=== PATIENT | female | born 1950 | race Caucasian/White ===

== ENCOUNTER 2017-03-23 03:45 | Emergency (ER) | payer BC ==
[2017-03-23 04:05] VITALS: BMI 32.2
--- NOTE | 2017-03-23 04:23 | PDOC ---
History of Present Illness - History of Present Illness Initial Comments: 03/23/17 04:24 The patient is a 66 year old female with significant history of hypertension, hyperlipidemia, IDDM (Type I), s/p thyroid surgery, recurrent palpitation for which she is on Diltiazem ER, brought in by EMS for palpitations that woke her from sleep early this morning. She states she had been otherwise recently been feeling in her usual state of health. Her palpitations were constant for approximately 20 minutes before resolving on their own. The patient denies any fever or chills, but does endorse feeling shaky. She does deny recent illness, cough. She denies vomiting or diarrhea. She denies any peripheral edema. Cardiology: Dr. Saunders Endocrinology: Dr. Roque PMD: At [facility] <Brittany Chavez - Last Filed: 03/23/17 04:24> - General History Source: Patient, EMS Exam Limitations: No Limitations <Tom Ridley - Last Filed: 03/23/17 06:18> - General Chief Complaint: Palpitations Stated Complaint: PALPITATIONS Time Seen by Provider: 03/23/17 04:01 Past History <Brittany Chavez - Last Filed: 03/23/17 04:24> - Past Medical History Anemia: No Asthma: Yes (DX CHILD-STABLE) Cancer: No Cardiac Disorders: Yes (PALPITATIONS, MITRAL REGURGITATION) CVA: No COPD: No CHF: No Dementia: No Diabetes: Yes (DX 1979-USES INSULIN PUMP) GI Disorders: Yes (COLON POLYP, DIVERTICULOSIS, ANAL FISSURE) Disorders: No HTN: Yes (DX IN HER 40'S) Hypercholesterolemia: Yes (DX IN HER 40'S) Liver Disease: Yes (NAFLD) Suicide Attempt (Hx): No Seizures: No Thyroid Disease: No - Surgical History Abdominal Surgery: No Appendectomy: No Cardiac Surgery: No Cholecystectomy: No Lung Surgery: No Neurologic Surgery: No Orthopedic Surgery: Yes (RIGHT ELBOW SURGERY-09/2014) - Psycho/Social/Smoking Cessation Hx Suicidal Ideation: No Smoking History: Never smoked Have you smoked in the past 12 months: No Number of Cigarettes Smoked Daily: 0 If you are a former smoker, when did you quit?: 1992 Information on smoking cessation initiated: No Hx Alcohol Use: No Drug/Substance Use Hx: No Substance Use Type: Alcohol Hx Substance Use Treatment: No <Tom Ridley - Last Filed: 03/23/17 06:18> - Past Medical History Allergies/Adverse Reactions: Allergies Allergy/AdvReac Type Severity Reaction Status Date / Time ibuprofen Allergy Severe Rash Verified 03/23/17 04:02 aspirin Allergy Intermediate Rash Verified 03/23/17 04:02 shellfish derived Allergy Intermediate Swelling Verified 03/23/17 04:02 Home Medications: Ambulatory Orders Albuterol Sulfate Inhaler - [Ventolin HFA Inhaler -] 1 - 2 inh IH DAILY PRN 11/07 Alprazolam [Xanax] 0.5 mg PO HS PRN 09/28/12 Diltiazem HCl [Cartia Xt] 240 mg PO DAILY 09/28/12 Fenofibrate [Fenoglide] 120 mg PO DAILY 09/28/12 Insulin Regular, Human [Humulin R] 8 unit IJ UTDICT 09/28/12 Valsartan/Hydrochlorothiazide [Diovan Hct 160-12.5 mg Tablet -] 1 combo PO BID 09/28/12 Cephalexin [Keflex] 500 mg PO BID #14 capsule 03/23/17 Hydralazine HCl [Apresoline -] 25 mg PO BID PRN 03/23/17 Review of Systems - Review of Systems Able to Perform ROS?: Yes Comments:: 03/23/17 04:28 GENERAL/CONSTITUTIONAL: No fever or chills. No weakness. HEAD, EYES, EARS, NOSE AND THROAT: No change in vision. No ear pain or discharge. No sore throat. CARDIOVASCULAR: +Palpitations (resolved). No chest pain or shortness of breath. No peripheral edema. RESPIRATORY: No cough, wheezing, or hemoptysis. GASTROINTESTINAL: No nausea, vomiting, diarrhea or constipation. GENITOURINARY: No dysuria, frequency, or change in urination. MUSCULOSKELETAL: No joint or muscle swelling or pain. No neck or back pain. SKIN: No rash NEUROLOGIC: No headache, vertigo, loss of consciousness, or change in strength/ sensation. ENDOCRINE: No increased thirst. No abnormal weight change. HEMATOLOGIC/LYMPHATIC: No anemia, easy bleeding, or history of blood clots. ALLERGIC/IMMUNOLOGIC: No hives or skin allergy. <Brittany Chavez - Last Filed: 03/23/17 04:24> *Physical Exam - Vital Signs Last Vital Signs Temp Pulse Resp BP Pulse Ox 100 H 14 185/78 100 03/23/17 04:02 03/23/17 04:02 03/23/17 04:02 03/23/17 04:02 - Physical Exam Comments: 03/23/17 04:29 GENERAL: Awake, alert, and fully oriented, in no acute distress HEAD: No signs of trauma EYES: PERRLA, EOMI, sclera anicteric, conjunctiva clear ENT: Auricles normal inspection, hearing grossly normal, nares patent, oropharynx clear without exudates. Moist mucosa NECK: Normal ROM, supple, no lymphadenopathy, JVD, or masses LUNGS: Breath sounds equal, clear to auscultation bilaterally. No wheezes, and no crackles HEART: Regular rate and rhythm, normal S1 and S2, no murmurs, rubs or gallops ABDOMEN: Soft, nontender, normoactive bowel sounds. No guarding, no rebound. No masses EXTREMITIES: Normal range of motion, no edema. No clubbing or cyanosis. No cords, erythema, or tenderness NEUROLOGICAL: Cranial nerves II through XII grossly intact. Normal speech, normal gait SKIN: Warm, Dry, normal turgor, no rashes or lesions noted. <Brittany Chavez - Last Filed: 03/23/17 04:24> - Vital Signs Last Vital Signs Temp Pulse Resp BP Pulse Ox 100 H 14 185/78 100 03/23/17 04:02 03/23/17 04:02 03/23/17 04:02 03/23/17 04:02 <Tom Ridley - Last Filed: 03/23/17 06:18> Heart Score/ECG Review #1 ECG reviewed & interpreted by me at: 04:35 03/23/17 05:05 NSR 88, TWI III, no std/norma, normal axis, normal intervals, QTC 421 msec <Tom Ridley - Last Filed: 03/23/17 06:18> ED Treatment Course - LABORATORY CBC & Chemistry Diagram: 03/23/17 04:39 03/23/17 04:39 <Tom Ridley - Last Filed: 03/23/17 06:18> Medical Decision Making - Medical Decision Making 03/23/17 04:14 A portion of this note was documented by scribe services under my direction. I have reviewed the details of the note, within reason, and agree with the documentation with the following case summary and management plan written by me. Patient treated in the ED. Patient arrives by ambulance to the emergency department. Nursing notes are reviewed and incorporated into the medical decision-making. Vital signs reviewed. Peripheral IV access obtained by the nurse, laboratory studies are drawn and sent, reviewed and interpreted by myself. Vital Signs Temp Pulse Resp BP Pulse Ox 100 H 14 185/78 100 03/23/17 04:02 03/23/17 04:02 03/23/17 04:02 03/23/17 04:02 66 year old female c/ hx of HTN, Type I DM on insulin pump, HLD, asthma, recent thyroid surgery, "Palpitations" on diltiazem extended release p/w palpitations today. Pt reports that she was in her usual state of health when she was sleeping and woke up with sudden palpitations. Reported that she felt 20 minutes of symptoms before it resolved spontaneously. She felt that she was shaky but denied cp/sob. Denies recent illnesses, fevers, chills, cough, vomiting, diarrhea. Will obtain an ECG. Labs, hospital monitor, UA, TSH, reassess. Will observe on hospital monitor. If workup demonstrates no acute findings, will likely d/c patient back to her surveillance camera technician for holter monitor. Pt's surveillance camera technician is Dr. Saunders. 03/23/17 06:11 CBC, BMP 03/23/17 04:39 03/23/17 04:39 CMP Sodium 135 mmol/L (136-145) L 03/23/17 04:39 Potassium 4.0 mmol/L (3.5-5.1) 03/23/17 04:39 Chloride 101 mmol/L (98-107) 03/23/17 04:39 Carbon Dioxide 28 mmol/L (21-32) 03/23/17 04:39 Anion Gap 6 (8-16) L 03/23/17 04:39 BUN 37 mg/dL (7-18) H 03/23/17 04:39 Creatinine 1.3 mg/dL (0.55-1.02) H 03/23/17 04:39 Creat Clearance w eGFR 40.86 (>60) 03/23/17 04:39 Random Glucose 308 mg/dL (74-106) H* D 03/23/17 04:39 Calcium 9.6 mg/dL (8.5-10.1) 03/23/17 04:39 Magnesium 2.0 mg/dL (1.8-2.4) 03/23/17 04:39 Total Bilirubin 0.2 mg/dL (0.2-1.0) D 03/23/17 04:39 AST 22 U/L (15-37) 03/23/17 04:39 ALT 49 U/L (12-78) D 03/23/17 04:39 Alkaline Phosphatase 62 U/L (45-117) 03/23/17 04:39 Creatine Kinase 304 IU/L (26-192) H 03/23/17 04:39 Creatine Kinase Index 1.3 % (0.0-5.0) 03/23/17 04:39 CK-MB (CK-2) 4.199 ng/mL (0.5-3.6) H 03/23/17 04:39 Troponin I 0.04 ng/ml (0.00-0.05) 03/23/17 04:39 Total Protein 7.4 g/dl (6.4-8.2) 03/23/17 04:39 Albumin 3.9 g/dl (3.4-5.0) 03/23/17 04:39 TSH 7.09 uIU/ml (0.358-3.74) H 03/23/17 04:39 Urine Test Results Urine Color Straw 03/23/17 05:11 Urine Appearance Slcloudy 03/23/17 05:11 Urine pH 6.0 (5.0-8.0) 03/23/17 05:11 Urine Protein 2+ (NEGATIVE) H 03/23/17 05:11 Urine Glucose (UA) 3+ (NEGATIVE) H 03/23/17 05:11 Urine Ketones Negative (NEGATIVE) 03/23/17 05:11 Urine Blood 1+ (NEGATIVE) H 03/23/17 05:11 Urine Nitrite Negative (NEGATIVE) 03/23/17 05:11 Urine Bilirubin Negative (NEGATIVE) 03/23/17 05:11 Ur Leukocyte Esterase 1+ (NEGATIVE) H 03/23/17 05:11 Urine RBC 1 /hpf (0-3) 03/23/17 05:11 Urine WBC 26 /hpf (3-5) 03/23/17 05:11 Ur Epithelial Cells Rare /hpf (FEW) 03/23/17 05:11 Urine Bacteria Rare /hpf (NONE SEEN) 03/23/17 05:11 TSH is 7.09 Glucose is 308. (pt will readjust her insulin). I suspect that her glucose is elevated secondary to her UTI. Will prescribe keflex. I advised the patient that she should be considered to be initiated on synthroid. Pt has a copy of the blood work. She states that she will follow up with DR. Roque regarding the findings. Pt will follow up with her doctors. She feels reassured and better. Return precautions given. I discussed the physical exam findings, ancillary test results and final diagnoses with the patient. I answered all of the patient's questions. The patient was satisfied with the care received and felt comfortable with the discharge plan and treatment plan. The patient will call their primary care physician within 24 hours to arrange follow-up and will return to the Emergency Department with any new, persistant or worsening symptoms. <Tom Ridley - Last Filed: 03/23/17 06:18> *DC/Admit/Observation/Transfer - Attestations Scribe Attestion: 03/23/17 04:30 Documentation prepared by Brittany Chavez, acting as medical claims examiner for Tom Ridley MD. <Brittany Chavez - Last Filed: 03/23/17 04:24> - Discharge Dispostion Admit: No <Tom Ridley - Last Filed: 03/23/17 06:18> Diagnosis at time of Disposition: Hyperglycemia, Low TSH level UTI (urinary tract infection) Qualifiers: Urinary tract infection type: site unspecified Hematuria presence: without hematuria Qualified Code(s): N39.0 - Urinary tract infection, site not specified - Discharge Dispostion Disposition: HOME Condition at time of disposition: Good - Prescriptions Prescriptions: Cephalexin [Keflex] 500 mg PO BID #14 capsule - Referrals Referrals: Surendra Roque MD [Staff Physician] - - Patient Instructions Printed Discharge Instructions: DI for Urinary Tract Infection (UTI), Thyroid Stimulating Hormone, DI for Palpitations Additional Instructions: Your workup shows an urine infection. Please take the antibiotic keflex every 12 hours for 7 days. Your thyroid level is about 7. Please bring a copy of your blood work to your doctor. You will need to be considered being placed on synthroid. If you develop chest pain or shortness of breath, please return to the ER for further evaluation.
[2017-03-23 04:47] LABS: BASOPHIL 0.9 % (0-2.0); MCH 28.6 pg (25.7-33.7); MCHC 33.8 g/dl (32.0-36.0); MEAN CELL VOLUME 84.7 fl (80-96); MEAN PLT VOLUME 8.8 fl (7.5-11.1); NEUTROPHILS 65.1 % (42.8-82.8); PLATELET COUNT 209 K/MM3 (134-434); RDW 13.4 % (11.6-15.6); WHITE BLOOD COUNT 8.9 K/mm3 (4.0-10.0)
[2017-03-23 04:59] LABS: INR 1.06 (0.82-1.09); PROTHROMBIN TIME (PATIENT) 11.7 SEC (9.98-11.88)
[2017-03-23 05:02] LABS: ACTIVATED PTT 30.8 SECONDS (26.9-34.4)
[2017-03-23 05:21] LABS: ACETONE SERUM NEGATIVE (NEGATIVE); ALBUMIN 3.9 g/dl (3.4-5.0); ANION GAP 6 (8-16); BILIRUBIN,TOTAL 0.2 mg/dL (0.2-1.0); CALCIUM 9.6 mg/dL (8.5-10.1); CO2 28 mmol/L (21-32); CREATININE 1.3 mg/dL (0.55-1.02); SGOT/AST 22 U/L (15-37); SGPT/ALT 49 U/L (12-78); TOT PROT 7.4 g/dl (6.4-8.2)
[2017-03-23 05:29] LABS: ALK PHOS 62 U/L (45-117); CPK 304 IU/L (26-192); THYROID STIMULATING HORMONE 7.09 uIU/ml (0.358-3.74); TROPONIN I 0.04 ng/ml (0.00-0.05)
[2017-03-23 05:32] LABS: GLUCOSE,RANDOM 308 mg/dL (74-106)
[2017-03-23] MEDS ORDERED: SODIUM CHLORIDE 1,000 ML IV STA (05:32)
[2017-03-23 05:34] LABS: URINE APPEARANCE SLCLOUDY; URINE BILIRUBIN NEGATIVE (NEGATIVE); URINE BLOOD 1+ (NEGATIVE); URINE COLOR STRAW; URINE GLUCOSE (UA) 3+ (NEGATIVE); URINE KETONE NEGATIVE (NEGATIVE); URINE NITRITE NEGATIVE (NEGATIVE); URINE UROBILINOGEN NEGATIVE mg/dL (0.2-1.0)
[2017-03-23 05:37] VITALS: BP 163/77; PULSE 89
[2017-03-23 05:44] LABS: URINE LEUK ESTERASE 1+ (NEGATIVE); URINE PROTEIN 2+ (NEGATIVE)
[2017-03-23 05:45] LABS: URINE BACTERIA RARE /hpf (NONE SEEN); URINE RBC 1 /hpf (0-3); URINE WBC 26 /hpf (3-5)
[2017-03-23] MEDS ORDERED: CEPHALEXIN MONOHYDRATE 500 MG CAPSULE (UD) PO ONE (06:10)
[2017-03-23] MEDS ORDERED: CEPHALEXIN MONOHYDRATE 250 MG CAPSULE (FP) ONE (06:15)
--- NOTE | 2017-03-23 20:27 | EKG ---
Test Reason : Blood Pressure : / mmHG Vent. Rate : 088 BPM Atrial Rate : 088 BPM P-R Int : 176 ms QRS Dur : 086 ms QT Int : 348 ms P-R-T Axes : 045 016 040 degrees QTc Int : 421 ms NORMAL SINUS RHYTHM NORMAL ECG WHEN COMPARED WITH ECG OF 07-OCT-2014 11:46, NO SIGNIFICANT CHANGE WAS FOUND Confirmed by YOLANDE PEDRAZA MD ([id number]) on 03/23/2017 8:26:53 PM Referred By: Confirmed By:YOLANDE PEDRAZA MD
== END 2017-03-23 06:26 | disposition home or self-care (01) ==
LOC: JER 03:45
DX: E10.65 Type 1 diabetes mellitus with hyperglycemia (principal); Z79.4 Long term (current) use of insulin; Z96.41 Presence of insulin pump (external) (internal); N39.0 Urinary tract infection, site not specified; I10 Essential (primary) hypertension; E78.00 Pure hypercholesterolemia, unspecified; K76.0 Fatty (change of) liver, not elsewhere classified; Z87.19 Personal history of other diseases of the digestive system
CPT/HCPCS: 36415; 80053; 81003; 81015; 82009; 82553; 83735; 84443; 84484; 85025; 85610; 85730; 87086; 93005; 93010; 99285-25

== ENCOUNTER 2019-01-05 11:03 | Inpatient (IN) | payer OTHER, BC ==
--- NOTE | 2019-01-05 12:24 | PDOC ---
History of Present Illness - General Chief Complaint: Shortness of Breath Stated Complaint: SOB Time Seen by Provider: 01/05/19 11:51 - History of Present Illness Initial Comments: 01/05/19 12:20 68 yo F with h/o HTN, HLD, DM, CABG (12-24-18), who p/w SOB. Patient reports 1 week of worsening [place], SOB at rest following d/c from [facility] s/p CABG. Reports 2-3 pillow orhtopnea. Patient adherent to daily Lasix 40 mg. + home duoneb use daily/albuterol. Denies home O2 requirements. Patient son at bedside to assist in report. Patient non ambulatory at home, lives with son. Patient denies LIND, vision change, palpitations, cough, wheezing, PND, leg swelling/pain, N/V, F,C, CP, urinary complaints, hematuria, BPR, abdominal pain , diarrhea, constipation, lightheadedness, weakness, sensory changes. PMHx: as noted above. Denies h/o PE/DVT. ROS: as noted SHx: Denies Etoh, IVDA, tobacco use Allergies: ibuprofen, ASA Form Grader Operator Dr. Saunders. Past History - Past Medical History Allergies/Adverse Reactions: Allergies Allergy/AdvReac Type Severity Reaction Status Date / Time ibuprofen Allergy Severe Rash Verified 03/23/17 04:02 aspirin Allergy Intermediate Rash Verified 03/23/17 04:02 shellfish derived Allergy Intermediate Swelling Verified 03/23/17 04:02 Home Medications: Ambulatory Orders Albuterol Sulfate Inhaler - [Ventolin HFA Inhaler -] 1 - 2 inh IH DAILY PRN 11/07 Alprazolam [Xanax] 0.5 mg PO HS PRN 09/28/12 Diltiazem HCl [Cartia Xt] 240 mg PO DAILY 09/28/12 Insulin Regular, Human [Humulin R] 8 unit IJ UTDICT 09/28/12 Albuterol Sulfate 01/05/19 Amlodipine Besylate 5 mg PO 01/05/19 Atorvastatin Ca [Lipitor] 80 mg PO HS 01/05/19 Clopidogrel Bisulfate [Plavix] 01/05/19 Isosorbide Mononitrate [Isosorbide Mononitrate ER] 30 mg PO 01/05/19 Lorazepam [Ativan] 0.5 mg PO 01/05/19 Metoprolol Succinate 100 mg PO 01/05/19 Montelukast Na [Singulair -] 10 mg PO HS 01/05/19 Oxycodone HCl/Acetaminophen [Percocet 5-325 mg Tablet] 1 - 2 tab PO Q4H Pantoprazole Sodium 40 mg PO 01/05/19 Anemia: No Asthma: Yes (DX CHILD-STABLE) Cancer: No Cardiac Disorders: Yes (PALPITATIONS, MITRAL REGURGITATION) CVA: No COPD: No CHF: No Dementia: No Diabetes: Yes (DX 1979-USES INSULIN PUMP) GI Disorders: Yes (COLON POLYP, DIVERTICULOSIS, ANAL FISSURE) Disorders: No HTN: Yes (DX IN HER 40'S) Hypercholesterolemia: Yes (DX IN HER 40'S) Liver Disease: Yes (NAFLD) Seizures: No Thyroid Disease: No - Surgical History Abdominal Surgery: No Appendectomy: No Cardiac Surgery: No Cholecystectomy: No Lung Surgery: No Neurologic Surgery: No Orthopedic Surgery: Yes (RIGHT ELBOW SURGERY-09/2014) - Suicide/Smoking/Psychosocial Hx Smoking History: Never smoked Have you smoked in the past 12 months: No Number of Cigarettes Smoked Daily: 0 If you are a former smoker, when did you quit?: 1992 Information on smoking cessation initiated: No Hx Alcohol Use: No Drug/Substance Use Hx: No Substance Use Type: Alcohol Hx Substance Use Treatment: No Review of Systems - Review of Systems Comments:: 01/05/19 12:24 GENERAL/CONSTITUTIONAL: No fever or chills. No weakness. HEAD, EYES, EARS, NOSE AND THROAT: No change in vision. No ear pain or discharge. No sore throat. CARDIOVASCULAR: + SOB. No chest pain. RESPIRATORY: No cough, wheezing, or hemoptysis. GASTROINTESTINAL: No nausea, vomiting, diarrhea or constipation. GENITOURINARY: No dysuria, frequency, or change in urination. MUSCULOSKELETAL: No joint or muscle swelling or pain. No neck or back pain. SKIN: No rash NEUROLOGIC: No headache, vertigo, loss of consciousness, or change in strength/ sensation. ENDOCRINE: No increased thirst. No abnormal weight change HEMATOLOGIC/LYMPHATIC: No anemia, easy bleeding, or history of blood clots. ALLERGIC/IMMUNOLOGIC: No hives or skin allergy. *Physical Exam - Vital Signs Last Vital Signs Temp Pulse Resp BP Pulse Ox 98.6 F 77 22 H 162/60 97 01/05/19 11:08 01/05/19 11:51 01/05/19 11:40 01/05/19 11:40 01/05/19 11:51 - Physical Exam Comments: 01/05/19 12:22 GENERAL: Awake, alert, and fully oriented, in no acute distress HEAD: No signs of trauma, normocephalic, atraumatic EYES: PERRLA, EOMI, sclera anicteric, conjunctiva clear ENT: Hearing grossly normal, nares patent, oropharynx clear without exudates. Moist mucosa NECK: Normal ROM, supple, no lymphadenopathy, JVD, or masses LUNGS: Diminished breath sounds, and crackles at LLL base. Absent wheezing or rhonci. No distress, speaks full sentences CHEST: Incision site 6 cm vertical sternal incision c/d/i. Absent wound dehiscence, erythema, fluctuance, discharge or drainage. HEART: Regular rate and rhythm, normal S1 and S2, no murmurs, rubs or gallops, peripheral pulses normal and equal bilaterally. ABDOMEN: Soft, nontender, normoactive bowel sounds. No guarding, no rebound. No masses EXTREMITIES : Normal inspection, Normal range of motion, no edema. No clubbing or cyanosis. NEUROLOGICAL: Cranial nerves II through XII grossly intact. Normal speech, no focal sensorimotor deficits SKIN: Warm, Dry, normal turgor, no rashes or lesions noted ED Treatment Course - LABORATORY CBC & Chemistry Diagram: 01/05/19 11:45 01/05/19 11:45 Medical Decision Making - Medical Decision Making 01/05/19 12:24 68 yo F with h/o HTN, HLD, DM, CABG (12-24-18), who p/w SOB at rest. O2 93% on RA, now on 2 L NC. Vitals otherwise wnl, AF, A&Ox3. Physical exam notable for diminshed LLL base lung sounds and crackles. ACS/SC r/o. R/o PNA. Will consider CHF exaccerbation, Pleural effusion. PERC + based on age, low risk PE based on Wells criteria. Labs, and reassess. ED Course: EKG: NSR with absent MILAN, STD. Nml interval duration and axis. Nml R wave progression. Absent Q waves. 01/05/19 12:58 Laboratory Tests 01/05/19 11:45 WBC 14.6 H Hgb 7.8 L Hct 23.5 L D RDW 14.7 01/05/19 13:05 CXR: LLL base consolidation with pleural effusion Vanc/Zosyn for HCAP 01/05/19 13:48 Laboratory Tests 01/05/19 01/05/19 11:45 11:45 WBC 14.6 H Hgb 7.8 L Hct 23.5 L D Plt Count 430 D Random Glucose 151 H Troponin I 0.07 H B-Natriuretic Peptide 2462.5 H 01/05/19 14:04 1 U PRBC *DC/Admit/Observation/Transfer Diagnosis at time of Disposition: HCAP (healthcare-associated pneumonia), SOB (shortness of breath) - Discharge Dispostion Condition at time of disposition: Stable Decision to Admit order: Yes - Referrals - Patient Instructions - Post Discharge Activity
[2019-01-05 12:45] LABS: EPI CELLS 6.4 /HPF (0-5/HPF); HYALINE CASTS 2 /lpf (0-8); PH,URINE 5.5 (5.0-8.0); URINE APPEARANCE CLEAR; URINE BACTERIA 10.2 /hpf (NEGATIVE); URINE BILIRUBIN NEGATIVE (NEGATIVE); URINE COLOR YELLOW; URINE GLUCOSE (UA) NEGATIVE (NEGATIVE); URINE KETONE NEGATIVE (NEGATIVE); URINE LEUK ESTERASE 1+ (NEGATIVE); URINE NITRITE NEGATIVE (NEGATIVE); URINE PROTEIN 2+ (NEGATIVE); URINE RBC 1 /hpf (0-4); URINE UROBILINOGEN 0.2 mg/dL (0.2-1.0); URINE WBC 23 /hpf (0-5)
[2019-01-05 12:49] LABS: BASO % 0.7 % (0-2.0); EOS % 1.1 % (0-4.5); HEMATOCRIT 23.5 % (32.4-45.2); LYMPH % 11.4 % (8-40); MCH 28.6 pg (25.7-33.7); MCHC 33.2 g/dl (32.0-36.0); MEAN CELL VOLUME 86.2 fl (80-96); MEAN PLT VOLUME 7.9 fl (7.5-11.1); MONO % 5.7 % (3.8-10.2); NEUT % 81.1 % (42.8-82.8); RBC 2.73 M/mm3 (3.60-5.2); RDW 14.7 % (11.6-15.6); WHITE BLOOD COUNT 14.6 K/mm3 (4.0-10.0)
[2019-01-05 12:54] LABS: HEMOGLOBIN 7.8 GM/dL (10.7-15.3); PLATELET COUNT 430 K/MM3 (134-434)
[2019-01-05 12:59] LABS: INR 1.09 (0.83-1.09); PROTHROMBIN TIME (PATIENT) 12.9 SEC (9.7-13.0)
[2019-01-05] MEDS ORDERED: FUROSEMIDE 40 MG/4 ML INJECTABLE VIAL IVPUSH ONE (12:59)
[2019-01-05] MEDS ORDERED: PIPERACILLIN/TAZOB 4.5 GM 4.5 GM in DEXTROSE 5%-WATER 100 ML IVPB ONE (13:04)
[2019-01-05] MEDS ORDERED: VANCOMYCIN 1,000 MG in DEXTROSE 5%-WATER - 250 ML IVPB ONE (13:04)
[2019-01-05 13:41] LABS: ALBUMIN 3.1 g/dl (3.4-5.0); BILIRUBIN,TOTAL 0.4 mg/dL (0.2-1); CALCIUM 8.6 mg/dL (8.5-10.1); CREATININE 1.2 mg/dL (0.55-1.3); N-TERMINAL BNP 2462.5 pg/ml (5-125); POTASSIUM 4.4 mmol/L (3.5-5.1); TOT PROT 6.2 g/dl (6.4-8.2)
[2019-01-05] MEDS ORDERED: INSULIN REGULAR HUMAN 100 UNITS/ML *VIAL IVPUSH ONE (13:47)
--- NOTE | 2019-01-05 13:50 | PDOC ---
Documentation entered by Melissa Frias SCRIBE, acting as scribe for Shawn Hernadez MD. Shawn Hernadez MD: This documentation has been prepared by the Altagracia wills Brenda, SCRIBE, under my direction and personally reviewed by me in its entirety. I confirm that the documentation accurately reflects all work, treatment, procedures, and medical decision making performed by me. Attending Attestation - Resident Resident Name: DiogenesJoel - ED Attending Attestation I have performed the following: I have examined & evaluated the patient, The case was reviewed & discussed with the resident, I agree w/resident's findings & plan, Exceptions are as noted - HPI HPI: 01/05/19 13:20 The patient is a 68 year old female with a significant past medical history of HTN, HLD, DM, recent CABG (12/24/18) who presents to the ED with 1 week of progressively worsening SOB. Patient reports SOB started shortly after being discharged from [facility] on Friday, where she was admitted for CABG. The patient notes she has asthma but these symptoms are different. She reports orthopnea, having to prop 2-3 pillows at night. Patient also reports taking 40mg of Lasix daily, along with home duoneb/albuterol. Denies any increased leg swelling. Patient denies chest pain, vision changes, palpitations, cough, wheezing, PND, leg swelling/pain, urinary complaints, hematuria, BPR, abdominal pain, diarrhea , constipation, lightheadedness, weakness, sensory changes. Denies the use of home O2. 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 - Physicial Exam PE: 01/05/19 13:15 GENERAL: Awake, alert, and fully oriented, in no acute distress. HEAD: No signs of trauma EYES: PERRLA, EOMI, sclera anicteric, conjunctiva clear ENT: Auricles normal inspection, hearing grossly normal, nares patent, oropharynx clear without exudates. Moist mucosa NECK: Nontender, no stepoffs, Normal ROM, supple, no lymphadenopathy, JVD, or masses LUNGS: Breath sounds equal, clear to auscultation bilaterally. No wheezes, and no crackles HEART: Regular rate and rhythm, normal S1 and S2, no murmurs, rubs or gallops ABDOMEN: Soft, nontender, normoactive bowel sounds. No guarding, no rebound. No masses EXTREMITIES: Normal range of motion, no edema. No clubbing or cyanosis. No cords , erythema, or tenderness NEUROLOGICAL: Cranial nerves II through XII intact. 5/5 strength and sensation in all extremities, Normal speech, normal gait, normal cerebellar function SKIN: Warm, Dry, normal turgor, no rashes or lesions noted. - Medical Decision Making 01/05/19 13:43 68 F with SOB. Pt with significant cardiac disease but no evidence of volume overload on exam. Possible PNA. Pt was recently hospitalized. PE is possibility but less likely as pt with no clinical signs of DVT. - Labs, trop, BNP - CXR 01/05/19 13:49 CXR shows LLL consolidation WBC 14 Will cover for HCAP
[2019-01-05] MEDS ORDERED: INSULIN REGULAR HUMAN 100 UNITS/ML *VIAL SQ ONE (13:51)
[2019-01-05] MEDS ORDERED: FUROSEMIDE 40 MG/4 ML INJECTABLE VIAL ONE (14:04)
[2019-01-05] MEDS ORDERED: PIPERACILLIN/TAZOB 4.5 GM 4.5 GM/100 ML BAG IVPB ONE (14:04)
[2019-01-05] MEDS ORDERED: VANCOMYCIN 1 GRAM (PRE-DOCKED) 1,000 MG/250 ML BAG IVPB ONE (14:04)
[2019-01-05] MEDS ORDERED: INSULIN (NOVOLOG) ASPART 100 UNITS/ML 10ML VIAL ONE (14:05)
--- NOTE | 2019-01-05 14:49 | PN ---
Teaching Attending Note Name of Resident: Robbi León ATTENDING PHYSICIAN STATEMENT I saw and evaluated the patient. I reviewed the resident's note and discussed the case with the resident. I agree with the resident's findings and plan as documented. SUBJECTIVE: Patient is a 68 yo F with a PMHx of HTN, DM, CAD (s/p recent CABG 12/24), Asthma , presented to the ED with worsening SOB that started since her hospitalization @ [facility] .Ever since then she has been sleeping in a sitting position to sleep .Yesterday, she called sr Saunders's office and was started on oral lasix 40mg orally daily. Denies any chest pain or palpitations. OBJECTIVE: Vital Signs Temperature 98.6 F 01/05/19 11:08 Pulse Rate 77 01/05/19 11:51 Respiratory Rate 22 H 01/05/19 11:40 Blood Pressure 162/60 01/05/19 11:40 O2 Sat by Pulse Oximetry (%) 97 01/05/19 11:51 GENERAL: The patient is awake, alert, and fully oriented, with NAD. HEAD: Normal with no signs of trauma. EYES: PERRL, extraocular movements intact, sclera anicteric, conjunctiva clear. ENT: Ears normal, oropharynx clear without exudates, moist mucous membranes. NECK: Trachea midline, full range of motion, supple. LUNGS: decreased BSs BL, L> R, crackles at the base of left base. no accessory muscle use. HEART: Regular rate and rhythm, S1, S2 without murmur, rub or gallop. ABDOMEN: Soft, NT, ND, normoactive bowel sounds, no guarding, no rebound, no hepatosplenomegaly, no masses. EXTREMITIES: 2+ pulses, warm, well-perfused, no edema. NEUROLOGICAL: Cranial nerves II through XII grossly intact. Normal speech, gait not observed. PSYCH: Normal mood, normal affect. SKIN: Warm, dry, normal turgor, no rashes or lesions noted WBC 14.6 K/mm3 (4.0-10.0) H 01/05/19 11:45 RBC 2.73 M/mm3 (3.60-5.2) L 01/05/19 11:45 Hgb 7.8 GM/dL (10.7-15.3) L 01/05/19 11:45 Hct 23.5 % (32.4-45.2) L D 01/05/19 11:45 MCV 86.2 fl (80-96) 01/05/19 11:45 MCHC 33.2 g/dl (32.0-36.0) 01/05/19 11:45 RDW 14.7 % (11.6-15.6) 01/05/19 11:45 Plt Count 430 K/MM3 (134-434) D 01/05/19 11:45 MPV 7.9 fl (7.5-11.1) D 01/05/19 11:45 CMP Sodium 140 mmol/L (136-145) 01/05/19 11:45 Potassium 4.4 mmol/L (3.5-5.1) 01/05/19 11:45 Chloride 108 mmol/L (98-107) H 01/05/19 11:45 Carbon Dioxide 24 mmol/L (21-32) 01/05/19 11:45 Anion Gap 9 MMOL/L (8-16) 01/05/19 11:45 BUN 28.0 mg/dL (7-18) H 01/05/19 11:45 Creatinine 1.2 mg/dL (0.55-1.3) 01/05/19 11:45 Random Glucose 151 mg/dL (74-106) H 01/05/19 11:45 Calcium 8.6 mg/dL (8.5-10.1) 01/05/19 11:45 Total Bilirubin 0.4 mg/dL (0.2-1) 01/05/19 11:45 AST 28 U/L (15-37) 01/05/19 11:45 ALT 57 U/L (13-61) 01/05/19 11:45 Alkaline Phosphatase 97 U/L (45-117) 01/05/19 11:45 Total Protein 6.2 g/dl (6.4-8.2) L 01/05/19 11:45 Albumin 3.1 g/dl (3.4-5.0) L 01/05/19 11:45 CARDIAC ENZYMES Creatine Kinase 111 U/L (26-192) 01/05/19 11:45 Troponin I 0.07 ng/ml (0.00-0.05) H 01/05/19 11:45 Home Medications Medication Instructions Recorded Albuterol Sulfate Inhaler - 1 - 2 inh IH DAILY PRN 09/28/12 [Ventolin HFA Inhaler -] Alprazolam [Xanax] 0.5 mg PO HS PRN 09/28/12 Diltiazem HCl [Cartia Xt] 240 mg PO DAILY 09/28/12 Insulin Regular, Human [Humulin R] 8 unit IJ UTDICT 09/28/12 Albuterol Sulfate 01/05/19 Amlodipine Besylate 5 mg PO 01/05/19 Atorvastatin Ca [Lipitor] 80 mg PO HS 01/05/19 Clopidogrel Bisulfate [Plavix] 01/05/19 Isosorbide Mononitrate [Isosorbide 30 mg PO 01/05/19 Mononitrate ER] Lorazepam [Ativan] 0.5 mg PO 01/05/19 Metoprolol Succinate 100 mg PO 01/05/19 Montelukast Na [Singulair -] 10 mg PO HS 01/05/19 Oxycodone HCl/Acetaminophen 1 - 2 tab PO Q4H 01/05/19 [Percocet 5-325 mg Tablet] Pantoprazole Sodium 40 mg PO 01/05/19 Current Medications Generic Name Dose Route Start Last Admin Trade Name Freq PRN Reason Stop Dose Admin Albuterol/Ipratropium 1 amp 01/05/19 16:17 Duoneb - NEB Q4H PRN SHORTNESS OF BREATH Alprazolam 0.5 mg 01/05/19 16:17 Xanax - PO HS PRN ANXIETY Amlodipine Besylate 5 mg 01/06/19 10:00 Norvasc - PO DAILY JAMEL Atorvastatin Calcium 80 mg 01/05/19 22:00 Lipitor - PO HS JAMEL Clopidogrel Bisulfate 75 mg 01/06/19 10:00 Plavix - PO DAILY JAMEL Furosemide 20 mg 01/06/19 06:00 Lasix Injection - IVPUSH BIDLASIX JAMEL Heparin Sodium (Porcine) 5,000 unit 01/05/19 22:00 Heparin - SQ TID JAMEL Piperacillin Sod/Tazobactam 50 mls @ 100 mls/hr 01/05/19 18:00 Sod 3.375 gm/ Dextrose IVPB Q8H-IV JAMEL Protocol Piperacillin Sod/Tazobactam 50 mls @ 100 mls/hr 01/05/19 18:00 Sod 3.375 gm/ Dextrose IVPB 01/06/19 10:29 Q8H-IV REPLACED BY [facility] Protocol Insulin Aspart 1 vial 01/05/19 16:30 Novolog Vial Sliding Scale - SQ ACHS REPLACED BY [facility] Protocol Isosorbide Mononitrate 30 mg 01/06/19 10:00 Imdur - PO DAILY JAMEL Metoprolol Succinate 100 mg 01/06/19 10:00 Toprol Xl - PO DAILY JAMEL Montelukast Sodium 10 mg 01/05/19 22:00 Singulair - PO HS JAMEL Pantoprazole Sodium 40 mg 01/06/19 10:00 Protonix - PO DAILY JAMEL echo 08/2015: nl lv/rv, no sig valve path ecg: sr nl intervals no ischemic changes cxR: LLL consolidation with small to moderate effusion. ASSESSMENT AND PLAN: Patient is a 68yo F with PMHx of HTN, HLD, DM, CABG (12/24/18), who p/w SOB. Patient reports 1 week of worsening [place], SOB at rest following d/c from [facility] s/p CABG. Reports 2-3 pillow orthopnea . # Acute HCAP LLL will start the patient on Zosyn andgiven a dose of Vancomycin in ED. ID consult appreciated. # Acute DCHF exacerbation: Lasix 20mg IV BID, bret Reed for consult, EKG in am # S/P Cabg (12/24/2018): continue plavix and aspirin , toprol xl, lipitor continue. # Hx of asthma continue meds. # T2DM continue sliding scale DVT Px: heparin all meds are confirmed.
--- NOTE | 2019-01-05 15:29 | CON.CARD ---
Cardiology Consult (text) - Consultation Consultation Note: cc: sob hpi: 68 f hx cad s/p elective cabg, no UT (was just dc about a week ago from [facility]), asthma, hld, dm, htn, here with sob. Since hospital dc last week has felt sob, left lower back pain worse with deep breaths, productive cough. No cp palps dizzy loc pnd. +orthopnea. Sees dr noel for cardio. pmh: per hpi psh: per hpi social: no tob fam: no premature cad, scd ros: per hpi; all others normal meds: Home Medications Medication Instructions Recorded Albuterol Sulfate Inhaler - 1 - 2 inh IH DAILY PRN 09/28/12 [Ventolin HFA Inhaler -] Alprazolam [Xanax] 0.5 mg PO HS PRN 09/28/12 Diltiazem HCl [Cartia Xt] 240 mg PO DAILY 09/28/12 Insulin Regular, Human [Humulin R] 8 unit IJ UTDICT 09/28/12 Albuterol Sulfate 01/05/19 Amlodipine Besylate 5 mg PO 01/05/19 Atorvastatin Ca [Lipitor] 80 mg PO HS 01/05/19 Clopidogrel Bisulfate [Plavix] 01/05/19 Isosorbide Mononitrate [Isosorbide 30 mg PO 01/05/19 Mononitrate ER] Lorazepam [Ativan] 0.5 mg PO 01/05/19 Metoprolol Succinate 100 mg PO 01/05/19 Montelukast Na [Singulair -] 10 mg PO HS 01/05/19 Oxycodone HCl/Acetaminophen 1 - 2 tab PO Q4H 01/05/19 [Percocet 5-325 mg Tablet] Pantoprazole Sodium 40 mg PO 01/05/19 pe: Vital Signs Period Temp Pulse Resp BP Sys/Levi Pulse Ox Last 24 Hr 98.6 F 62-77 16-22 133-164/55-67 93-97 nad no jvd rrr s1s2 no mrg left base crackles/dec bs, nl eff aao3 trace le edema bl, no c/c abd nt nd pos bs no jaundice diaphoresis pos dp pt no carotid bruits sternal wound healing well Laboratory Last Values WBC 14.6 K/mm3 (4.0-10.0) H 01/05/19 11:45 RBC 2.73 M/mm3 (3.60-5.2) L 01/05/19 11:45 Hgb 7.8 GM/dL (10.7-15.3) L 01/05/19 11:45 Hct 23.5 % (32.4-45.2) L D 01/05/19 11:45 MCV 86.2 fl (80-96) 01/05/19 11:45 MCH 28.6 pg (25.7-33.7) 01/05/19 11:45 MCHC 33.2 g/dl (32.0-36.0) 01/05/19 11:45 RDW 14.7 % (11.6-15.6) 01/05/19 11:45 Plt Count 430 K/MM3 (134-434) D 01/05/19 11:45 MPV 7.9 fl (7.5-11.1) D 01/05/19 11:45 Absolute Neuts (auto) 11.8 K/mm3 (1.5-8.0) H 01/05/19 11:45 Neutrophils % 81.1 % (42.8-82.8) D 01/05/19 11:45 Lymphocytes % 11.4 % (8-40) D 01/05/19 11:45 Monocytes % 5.7 % (3.8-10.2) 01/05/19 11:45 Eosinophils % 1.1 % (0-4.5) 01/05/19 11:45 Basophils % 0.7 % (0-2.0) 01/05/19 11:45 Nucleated RBC % 0 % (0-0) 01/05/19 11:45 PT with INR 12.90 SEC (9.7-13.0) 01/05/19 11:45 INR 1.09 (0.83-1.09) 01/05/19 11:45 Sodium 140 mmol/L (136-145) 01/05/19 11:45 Potassium 4.4 mmol/L (3.5-5.1) 01/05/19 11:45 Chloride 108 mmol/L (98-107) H 01/05/19 11:45 Carbon Dioxide 24 mmol/L (21-32) 01/05/19 11:45 Anion Gap 9 MMOL/L (8-16) 01/05/19 11:45 BUN 28.0 mg/dL (7-18) H 01/05/19 11:45 Creatinine 1.2 mg/dL (0.55-1.3) 01/05/19 11:45 Est GFR (CKD-EPI)AfAm 53.40 01/05/19 11:45 Est GFR (CKD-EPI)NonAf 46.07 01/05/19 11:45 Random Glucose 151 mg/dL (74-106) H 01/05/19 11:45 Calcium 8.6 mg/dL (8.5-10.1) 01/05/19 11:45 Total Bilirubin 0.4 mg/dL (0.2-1) 01/05/19 11:45 AST 28 U/L (15-37) 01/05/19 11:45 ALT 57 U/L (13-61) 01/05/19 11:45 Alkaline Phosphatase 97 U/L (45-117) 01/05/19 11:45 Creatine Kinase 111 U/L (26-192) 01/05/19 11:45 Troponin I 0.07 ng/ml (0.00-0.05) H 01/05/19 11:45 B-Natriuretic Peptide 2462.5 pg/ml (5-125) H 01/05/19 11:45 Total Protein 6.2 g/dl (6.4-8.2) L 01/05/19 11:45 Albumin 3.1 g/dl (3.4-5.0) L 01/05/19 11:45 Urine Color Yellow 01/05/19 12:20 Urine Appearance Clear 01/05/19 12:20 Urine pH 5.5 (5.0-8.0) 01/05/19 12:20 Ur Specific [place] 1.009 (1.010-1.035) L 01/05/19 12:20 Urine Protein 2+ (NEGATIVE) H 01/05/19 12:20 Urine Glucose (UA) Negative (NEGATIVE) 01/05/19 12:20 Urine Ketones Negative (NEGATIVE) 01/05/19 12:20 Urine Blood Negative (NEGATIVE) 01/05/19 12:20 Urine Nitrite Negative (NEGATIVE) 01/05/19 12:20 Urine Bilirubin Negative (NEGATIVE) 01/05/19 12:20 Urine Urobilinogen 0.2 mg/dL (0.2-1.0) 01/05/19 12:20 Ur Leukocyte Esterase 1+ (NEGATIVE) H 01/05/19 12:20 Urine WBC (Auto) 23 /hpf (0-5) 01/05/19 12:20 Urine RBC (Auto) 1 /hpf (0-4) 01/05/19 12:20 Urine Casts (Auto) 2 /lpf (0-8) 01/05/19 12:20 U Epithel Cells (Auto) 6.4 /HPF (0-5/HPF) 01/05/19 12:20 Urine Bacteria (Auto) 10.2 /hpf (NEGATIVE) 01/05/19 12:20 Crossmatch See Detail 01/05/19 14:30 echo 08/2015: nl lv/rv, no sig valve path cxr: left lower lobe consolidation and eff ecg: sr nl intervals no ischemic changes a/p: 68 f hx cad s/p elective cabg, no UT (was just dc about a week ago from [facility]), asthma, hld, htn, dm, here with sob. sob, pna: -presentation c/w pna, continue abx, supplemental o2 -does not appear to be in significant chf, no signs acs -check updated echo cad: -s/p recent cabg -no signs acs -trop borderline elevated with nl ck, likely not acs, continue to trend -cont home toprol 25, atorva 40, dilt 240 qd, clonidine 0.1 qwk patch, chlorthalidone 25, aldactone 12.5, fenofibrate 145, benicar. -can hold asa for now given anemia (hgb 7.8) anemia: -likely related to recent surgery, trend hgb. hold asa. hld: -cont statin htn: -cont home meds: toprol 25, dilt 240 qd, clonidine 0.1 qwk patch, chlorthalidone 25, aldactone 12.5, benicar.
--- NOTE | 2019-01-05 16:24 | HP ---
CHIEF COMPLAINT: sob HISTORY OF PRESENT ILLNESS: Patient is a 68 yo F with a PMHx of HTN, DM, CAD (s/p recent CABG 12/24), Asthma , presented to the ED with worsening SOB since her hospitalization @ [facility] on 12/24 for a CABG. She said she developed a cough with black/yellow sputum production 3 days into her hospitalization (which resolved) with SOB. After being discharged 5 days later, she developed orthopnea. She said she needs 2-3 pillows at night to help her sleep at night. She noticed lower extremity edema a few days ago and was started on Lasix 40mg. The edema has now resolved. 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 Saunders. She also has associated left-sided back pain, worse with breathing that also started around the same time. She denies fevers, chills , nausea, vomiting, dizziness, chest pain ER course was notable for: (1) CXR: LLL consolitation with a Pleural effusion (2) Vanc/Zosyn Recent Travel: denies PAST MEDICAL HISTORY: per HPI PAST SURGICAL HISTORY: rotator cuff surgery, back surgery, recent CABG Social History: Smoking: denies Alcohol: denies Drugs: denies Family History: Allergies ibuprofen Allergy (Severe, Verified 03/23/17 04:02) Rash aspirin Allergy (Intermediate, Verified 03/23/17 04:02) Rash shellfish derived Allergy (Intermediate, Verified 03/23/17 04:02) Swelling HOME MEDICATIONS: Home Medications Medication Instructions Recorded Albuterol Sulfate Inhaler - 1 - 2 inh IH DAILY PRN 09/28/12 [Ventolin HFA Inhaler -] Alprazolam [Xanax] 0.5 mg PO HS PRN 09/28/12 Insulin Regular, Human [Humulin R] 8 unit IJ UTDICT 09/28/12 Albuterol Sulfate 01/05/19 Amlodipine Besylate 5 mg PO DAILY 01/05/19 Atorvastatin Ca [Lipitor] 80 mg PO HS 01/05/19 Clopidogrel Bisulfate [Plavix] 75 mg PO DAILY 01/05/19 Furosemide [Lasix -] 40 mg PO DAILY 01/05/19 Isosorbide Mononitrate [Isosorbide 30 mg PO DAILY 01/05/19 Mononitrate ER] Metoprolol Succinate 100 mg PO DAILY 01/05/19 Montelukast Na [Singulair -] 10 mg PO HS 01/05/19 Oxycodone HCl/Acetaminophen 1 - 2 tab PO Q4H PRN 01/05/19 [Percocet 5-325 mg Tablet] Pantoprazole Sodium 40 mg PO DAILY 01/05/19 REVIEW OF SYSTEMS CONSTITUTIONAL: Absent: fever, chills, diaphoresis, generalized weakness, malaise, loss of appetite, weight change HEENT: Absent: rhinorrhea, nasal congestion, throat pain, throat swelling, difficulty swallowing, mouth swelling, ear pain, eye pain, visual changes CARDIOVASCULAR: peripheral edema Absent: chest pain, syncope, palpitations, irregular heart rate, lightheadedness RESPIRATORY: sob, bello, orthopnea Absent: cough, wheezing, stridor, hemoptysis GASTROINTESTINAL: Absent: abdominal pain, abdominal distension, nausea, vomiting, diarrhea, constipation, melena, hematochezia GENITOURINARY: Absent: dysuria, frequency, urgency, hesitancy, hematuria, flank pain, genital pain MUSCULOSKELETAL: Absent: myalgia, arthralgia, joint swelling, back pain, neck pain NEUROLOGIC: Absent: headache, focal weakness or paresthesias, dizziness, unsteady gait, seizure, mental status changes, bladder or bowel incontinence PHYSICAL EXAMINATION Vital Signs - 24 hr 01/05/19 01/05/19 01/05/19 11:08 11:40 11:51 Temperature 98.6 F Pulse Rate 71 62 Pulse Rate [ 77 Left Radial] Respiratory 16 22 H Rate Blood Pressure 164/67 Blood Pressure 162/60 [Right Arm] O2 Sat by Pulse 93 L 95 97 Oximetry (%) 01/05/19 14:46 Temperature Pulse Rate Pulse Rate [ 66 Left Radial] Respiratory 22 H Rate Blood Pressure Blood Pressure 133/55 L [Right Arm] O2 Sat by Pulse 96 Oximetry (%) GENERAL: Awake, alert, and fully oriented, in no acute distress. HEAD: Normal with no signs of trauma. EYES: Pupils equal, round and reactive to light, extraocular movements intact, sclera anicteric, conjunctiva clear. EARS, NOSE, THROAT: oropharynx clear without exudates. Moist mucous membranes. NECK: supple without lymphadenopathy, JVD, or masses. Chest: incision post CABG, clean/dry LUNGS: decreased breath sounds on the L, no wheezing, crackles auscultated HEART: Regular rate and rhythm, normal S1 and S2 without murmur, rub or gallop. ABDOMEN: Soft, nontender, not distended, normoactive bowel sounds, no guarding, no rebound, no masses. LOWER EXTREMITIES: 2+ pulses, warm, well-perfused. No peripheral edema. NEUROLOGICAL: Cranial nerves II-XII intact. Normal speech. Laboratory Results - last 24 hr 01/05/19 01/05/19 01/05/19 11:45 11:45 11:45 WBC 14.6 H RBC 2.73 L Hgb 7.8 L Hct 23.5 L D MCV 86.2 MCH 28.6 MCHC 33.2 RDW 14.7 Plt Count 430 D MPV 7.9 D Absolute Neuts (auto) 11.8 H Neutrophils % 81.1 D Lymphocytes % 11.4 D Monocytes % 5.7 Eosinophils % 1.1 Basophils % 0.7 Nucleated RBC % 0 PT with INR 12.90 INR 1.09 Sodium 140 Potassium 4.4 Chloride 108 H Carbon Dioxide 24 Anion Gap 9 BUN 28.0 H Creatinine 1.2 Est GFR (CKD-EPI)AfAm 53.40 Est GFR (CKD-EPI)NonAf 46.07 Random Glucose 151 H Calcium 8.6 Total Bilirubin 0.4 AST 28 ALT 57 Alkaline Phosphatase 97 Creatine Kinase 111 Troponin I 0.07 H B-Natriuretic Peptide 2462.5 H Total Protein 6.2 L Albumin 3.1 L Urine Color Urine Appearance Urine pH Ur Specific [place] Urine Protein Urine Glucose (UA) Urine Ketones Urine Blood Urine Nitrite Urine Bilirubin Urine Urobilinogen Ur Leukocyte Esterase Urine WBC (Auto) Urine RBC (Auto) Urine Casts (Auto) U Epithel Cells (Auto) Urine Bacteria (Auto) Crossmatch 01/05/19 01/05/19 12:20 14:30 WBC RBC Hgb Hct MCV MCH MCHC RDW Plt Count MPV Absolute Neuts (auto) Neutrophils % Lymphocytes % Monocytes % Eosinophils % Basophils % Nucleated RBC % PT with INR INR Sodium Potassium Chloride Carbon Dioxide Anion Gap BUN Creatinine Est GFR (CKD-EPI)AfAm Est GFR (CKD-EPI)NonAf Random Glucose Calcium Total Bilirubin AST ALT Alkaline Phosphatase Creatine Kinase Troponin I B-Natriuretic Peptide Total Protein Albumin Urine Color Yellow Urine Appearance Clear Urine pH 5.5 Ur Specific [place] 1.009 L Urine Protein 2+ H Urine Glucose (UA) Negative Urine Ketones Negative Urine Blood Negative Urine Nitrite Negative Urine Bilirubin Negative Urine Urobilinogen 0.2 Ur Leukocyte Esterase 1+ H Urine WBC (Auto) 23 Urine RBC (Auto) 1 Urine Casts (Auto) 2 U Epithel Cells (Auto) 6.4 Urine Bacteria (Auto) 10.2 Crossmatch See Detail ASSESSMENT/PLAN: 68 yo F with a PMHx of HTN, DM, CAD (s/p recent CABG 12/24), Asthma, presented to the ED with worsening SOB since her hospitalization @ [facility] on 12/24 for a CABG. #Acute hypoxic Respiratory Failure 2/2 LLL PNA -CXR w/ consolitation, pleural effusion -Leukocytosis 14.6 -Sputum culture, bcx,flu swab -Vanc/zosyn in ED -patient recently hospitalized for 5 days. Cont. Zosyn -ID consulted: Dr. Adams -deepali PRN for hx of Asthma -Cardiology started Lasix 40mg daily yesterday @ home. Will cont. at 20mg BID IV. Wait for ECHO, FU cardio reccs #CAD s/p CABG (12/24) -cont. Plavix -patient allergic to ASA #Anemia -7.8 hgb -likely from recent CABG -1 PRBC ordered in ED -follow H7H #HTN -imdur 30mg -norvasc 5mg -toprol 100mg #Asthma -not in exacerbation -Duoneb PRN -cont home Singulair 10mg Daily #DM -hold home meds -BGM -SSI -Hgba1c #FEN -no IV fluids needed -monitor lytes -diabetic diet #dvt ppx -hep sq Visit type - Emergency Visit Emergency Visit: Yes ED Registration Date: 01/05/19 Care time: The patient presented to the Emergency Department on the above date and was hospitalized for further evaluation of their emergent condition. - New Patient This patient is new to me today: Yes Date on this admission: 01/08/19 - Critical Care Critical Care patient: No
--- NOTE | 2019-01-05 16:58 | EKG ---
Test Reason : Blood Pressure : / mmHG Vent. Rate : 079 BPM Atrial Rate : 079 BPM P-R Int : 150 ms QRS Dur : 082 ms QT Int : 374 ms P-R-T Axes : 042 031 095 degrees QTc Int : 428 ms NORMAL SINUS RHYTHM ABNORMAL QRS-T ANGLE, CONSIDER PRIMARY T WAVE ABNORMALITY ABNORMAL ECG WHEN COMPARED WITH ECG OF 23-MAR-2017 04:31, NO SIGNIFICANT CHANGE WAS FOUND Confirmed by MD Kranthi, Misael ([id number]) on 01/05/2019 4:58:22 PM Referred By: Confirmed By:Misael Crisostomo MD
--- NOTE | 2019-01-05 18:01 | CON.ID ---
Consult Referred by:: hospitalist Reason for Consultation:: pneumonia - History of Present Illness Chief Complaint: SOB and back pain History of Present Illness: 68 yo s/p cabg times 3 12/[address] [facility], discharged home 12/29 noted to have increasing SOB and back pain she noted leg swelling earlier this week and was started on lasix with good improvement of her leg swelling no fever or chills cough in hospital, now improved no hemoptysis cxray in ED with LLL consolidation with effusions no nausea or vomiting noconstipation has a good appetite received vancomycin and zosyn in ED - History Source History Provided By: Patient, Family Member Limitations to Obtaining History: No Limitations - Past Medical History Cardio/Vascular: Yes: CAD, HTN Endocrine: Yes: Diabetes Mellitus - Past Surgical History Additional Surgical History: CABG 12/[address] [facility] - Alcohol/Substance Use Hx Alcohol Use: No - Smoking History Smoking history: Former smoker Have you smoked in the past 12 months: No Aproximately how many cigarettes per day: 0 If you are a former smoker, when did you quit?: 1992 - Social History ADL: Independent Home Medications - Allergies Allergies/Adverse Reactions: Allergies Allergy/AdvReac Type Severity Reaction Status Date / Time ibuprofen Allergy Severe Rash Verified 03/23/17 04:02 aspirin Allergy Intermediate Rash Verified 03/23/17 04:02 shellfish derived Allergy Intermediate Swelling Verified 03/23/17 04:02 - Home Medications Home Medications: Ambulatory Orders Albuterol Sulfate Inhaler - [Ventolin HFA Inhaler -] 1 - 2 inh IH DAILY PRN 11/07 Alprazolam [Xanax] 0.5 mg PO HS PRN 09/28/12 Insulin Regular, Human [Humulin R] 8 unit IJ UTDICT 09/28/12 Albuterol Sulfate 01/05/19 Alprazolam [Xanax] 0.5 mg PO HS 01/05/19 Amlodipine Besylate 5 mg PO DAILY 01/05/19 Atorvastatin Ca [Lipitor] 80 mg PO DAILY 01/05/19 Atorvastatin Ca [Lipitor] 80 mg PO HS 01/05/19 Clopidogrel Bisulfate [Plavix] 75 mg PO DAILY 01/05/19 Escitalopram Oxalate [Lexapro -] 10 mg PO DAILY 01/05/19 Furosemide [Lasix -] 40 mg PO DAILY 01/05/19 Isosorbide Mononitrate [Isosorbide Mononitrate ER] 30 mg PO DAILY 01/05/19 Metoprolol Succinate 100 mg PO DAILY 01/05/19 Montelukast Na [Singulair -] 10 mg PO HS 01/05/19 Oxycodone HCl/Acetaminophen [Percocet 5-325 mg Tablet] 1 - 2 tab PO Q4H Pantoprazole Sodium 40 mg PO DAILY 01/05/19 Review of Systems - Review of Systems Constitutional: reports: No Symptoms Eyes: reports: No Symptoms HENT: reports: No Symptoms Neck: reports: No Symptoms Cardiovascular: reports: No Symptoms Respiratory: reports: SOB Genitourinary: reports: No Symptoms Breasts: reports: No Symptoms Reported Musculoskeletal: reports: Back Pain Physical Exam Vital Signs: Vital Signs Temperature 98.8 F 01/05/19 16:26 Pulse Rate 60 01/05/19 16:26 Respiratory Rate 20 01/05/19 16:26 Blood Pressure 136/57 L 01/05/19 16:26 O2 Sat by Pulse Oximetry (%) 97 01/05/19 16:26 Constitutional: Yes: Well Nourished, No Distress, Calm Eyes: Yes: Conjunctiva Clear, EOM Intact HENT: No: Thrush Neck: Yes: Supple, Trachea Midline Cardiovascular: Yes: Regular Rate and Rhythm Respiratory: Yes: Regular, Diminished (left base), Other (crackles left base) Gastrointestinal: Yes: Normal Bowel Sounds, Soft ...Rectal Exam: Yes: Deferred Edema: No Wound/Incision: Yes: Other (sternal wound dry, no erythema no drainage) Psychiatric: Yes: Alert, Oriented Labs: CBC, BMP 01/05/19 11:45 01/05/19 11:45 Imaging - Results Chest X-ray: Report Reviewed, Image Reviewed (LLL infiltrate with effusion) Problem List - Problems (1) HCAP (healthcare-associated pneumonia) Code(s): J18.9 - PNEUMONIA, UNSPECIFIED ORGANISM (2) Anemia Code(s): D64.9 - ANEMIA, UNSPECIFIED (3) S/P CABG x 3 Code(s): Z95.1 - PRESENCE OF AORTOCORONARY BYPASS GRAFT Assessment/Plan s/p vancomycin and zosyn continue zosyn f/u cultures obtain sputum culture and urinary antigens nares swab for MRSA would ask pulmonary to see to evaluate the pleural effusion ?effusion and atelectasis vs pneumonia
[2019-01-05] MEDS: PIPERACILLIN/TAZOB 3.375 GM 3.375 GM in DEXTROSE 5%-WATER - 50 ML IVPB SCH (18:21)
[2019-01-05] MEDS: HEPARIN NA (PORCINE) 5,000 UNITS/ML 1ML VIAL SQ SCH (22:50)
[2019-01-05] MEDS: MONTELUKAST NA 10 MG TABLET PO SCH (22:50)
[2019-01-05] MEDS ORDERED: ATORVASTATIN CA 80 MG TABLET (FP) ONE (22:53)
[2019-01-05] MEDS ORDERED: HEPARIN NA (PORCINE) 5,000 UNITS/ML 1ML VIAL ONE (22:54)
[2019-01-05] MEDS ORDERED: MONTELUKAST NA 10 MG TABLET ONE (22:54)
[2019-01-05] MEDS: ATORVASTATIN CA 80 MG TABLET (FP) PO SCH (23:02)
[2019-01-05] MEDS: INSULIN SLIDING SCALE (NOVOLOG) 1 VIAL SQ SCH (23:50)
[2019-01-06] MEDS ORDERED: INSULIN (NOVOLOG) ASPART 100 UNITS/ML 10ML VIAL ONE (00:42)
[2019-01-06] MEDS ORDERED: PIPERACILLIN/TAZOBACTAM 3.375 GM VIAL IVPB ONE ×3 (01:57→17:39)
[2019-01-06] MEDS ORDERED: DEXTROSE 5%-WATER - 50 ML IVPB ONE ×3 (01:57→17:40)
[2019-01-06] MEDS: ALPRAZolam 0.25 MG TABLET PO PRN ×2 (01:59→16:01)
[2019-01-06] MEDS: PIPERACILLIN/TAZOB 3.375 GM 3.375 GM in DEXTROSE 5%-WATER - 50 ML IVPB SCH ×3 (02:00→17:47)
[2019-01-06] MEDS: ALBUTEROL SO4 2.5/IPRATROPIUM 0.5 INH SOL 3 ML VIAL.NEB. NEB PRN ×2 (04:46→08:55)
[2019-01-06] MEDS: HEPARIN NA (PORCINE) 5,000 UNITS/ML 1ML VIAL SQ SCH ×3 (05:44→22:24)
[2019-01-06] MEDS ORDERED: FUROSEMIDE 40 MG/4 ML INJECTABLE VIAL IVPUSH SCH (06:00)
[2019-01-06 07:53] LABS: BASO % 0.5 % (0-2.0); EOS % 1.3 % (0-4.5); HEMATOCRIT 29.9 % (32.4-45.2); HEMOGLOBIN 9.8 GM/dL (10.7-15.3); LYMPH % 17.4 % (8-40); MCH 28.4 pg (25.7-33.7); MCHC 32.9 g/dl (32.0-36.0); MEAN CELL VOLUME 86.2 fl (80-96); MEAN PLT VOLUME 7.9 fl (7.5-11.1); MONO % 5.3 % (3.8-10.2); NEUT % 75.5 % (42.8-82.8); PLATELET COUNT 419 K/MM3 (134-434); RBC 3.47 M/mm3 (3.60-5.2); RDW 14.3 % (11.6-15.6); WHITE BLOOD COUNT 12.9 K/mm3 (4.0-10.0)
[2019-01-06 09:05] LABS: ALBUMIN 3.2 g/dl (3.4-5.0); BILIRUBIN,TOTAL 0.5 mg/dL (0.2-1); CALCIUM 8.8 mg/dL (8.5-10.1); CREATININE 1.2 mg/dL (0.55-1.3); MAGNESIUM 2.2 mg/dL (1.8-2.4); PHOSPHOROUS 4.8 mg/dL (2.5-4.9); POTASSIUM 4.1 mmol/L (3.5-5.1); TOT PROT 6.5 g/dl (6.4-8.2)
[2019-01-06] MEDS: PANTOPRAZOLE 40 MG TABLET (FP) PO SCH (09:32)
[2019-01-06] MEDS: CLOPIDOGREL BISULFATE 75 MG TABLET (FP) PO SCH (09:32)
[2019-01-06] MEDS: ISOSORBIDE MONONITRATE 30 MG TAB.SR.24H (FP) PO SCH (09:32)
[2019-01-06] MEDS: amLODIPine BESYLATE 5 MG TABLET (FP) PO SCH (09:32)
[2019-01-06] MEDS ORDERED: INSULIN (LEVEMIR) 100 UNITS/ML UNITS SQ ONE (10:16)
--- NOTE | 2019-01-06 10:50 | PN ---
Progress Note (short form) - Note Progress Note: s: sob edema improving. no chest pain, palps, dizziness Current Medications Albuterol/Ipratropium (Duoneb -) 1 amp NEB Q4H PRN PRN Reason: SHORTNESS OF BREATH Last Admin: 01/06/19 08:55 Dose: 1 amp Alprazolam (Xanax -) 0.5 mg PO HS PRN PRN Reason: ANXIETY Last Admin: 01/06/19 01:59 Dose: 0.5 mg Amlodipine Besylate (Norvasc -) 5 mg PO DAILY [facility] Last Admin: 01/06/19 09:32 Dose: 5 mg Atorvastatin Calcium (Lipitor -) 80 mg PO HS [facility] Last Admin: 01/05/19 23:02 Dose: Not Given Clopidogrel Bisulfate (Plavix -) 75 mg PO DAILY [facility] Last Admin: 01/06/19 09:32 Dose: 75 mg Furosemide (Lasix Injection -) 20 mg IVPUSH BIDLASIX [facility] Last Admin: 01/06/19 05:44 Dose: 20 mg Heparin Sodium (Porcine) (Heparin -) 5,000 unit SQ TID [facility] Last Admin: 01/06/19 05:44 Dose: 5,000 unit Piperacillin Sod/Tazobactam (Sod 3.375 gm/ Dextrose) 50 mls @ 100 mls/hr IVPB Q8H-IV [facility]; Protocol Insulin Aspart (Novolog Vial Sliding Scale -) 1 vial SQ ACHS [facility]; Protocol Last Admin: 01/05/19 23:50 Dose: 4 units Insulin Detemir (Levemir Vial) 20 units SQ AM [facility] Isosorbide Mononitrate (Imdur -) 30 mg PO DAILY [facility] Last Admin: 01/06/19 09:32 Dose: 30 mg Metoprolol Succinate (Toprol Xl -) 100 mg PO DAILY [facility] Last Admin: 01/06/19 09:32 Dose: 100 mg Montelukast Sodium (Singulair -) 10 mg PO HS [facility] Last Admin: 01/05/19 22:50 Dose: 10 mg Pantoprazole Sodium (Protonix -) 40 mg PO DAILY [facility] Last Admin: 01/06/19 09:32 Dose: 40 mg nad no jvd rrr s1s2 no mrg left base crackles/dec bs, nl eff aao3 trace le edema bl, no c/c abd nt nd pos bs no jaundice diaphoresis pos dp pt no carotid bruits sternal wound healing well echo 08/2015: nl lv/rv, no sig valve path cxr: left lower lobe consolidation and eff ecg: sr nl intervals no ischemic changes a/p: 68 f hx cad s/p elective cabg, no MS (was just dc about a week ago from [facility]), asthma, hld, htn, dm, here with sob. sob, pna: -presentation c/w pna, continue abx, supplemental o2 -does not appear to be in significant chf, no signs acs, edema resolved -echo pending -dc lasix cad: -s/p recent cabg -no signs acs -trop borderline elevated with nl ck, likely not acs -cont home toprol 25, atorva 40, dilt 240 qd, clonidine 0.1 qwk patch, chlorthalidone 25, aldactone 12.5, fenofibrate 145, benicar. -can hold asa for now given anemia (hgb 7.8) anemia: -likely related to recent surgery, trend hgb. hold asa. hld: -cont statin htn: -cont home meds: toprol 25, dilt 240 qd, clonidine 0.1 qwk patch, chlorthalidone 25, aldactone 12.5, benicar.
[2019-01-06] MEDS: INSULIN SLIDING SCALE (NOVOLOG) 1 VIAL SQ SCH ×2 (11:20→17:34)
--- NOTE | 2019-01-06 12:00 | PN ---
Progress Note (short form) - Note Progress Note: PULMONARY CONSULTATION DICTATED 01/06/19 IMP DYSPNEA ? ETIOLOGY ? PE LLL CONSOLIDATION/EFFUSION LIKELY SECONDARY TO RECENT CARDIAC SURGERY( POST-CARDIOTOMY) ,?INFECTIOUS ASHD S/P CABG ASTHMA DM HTN ANEMIA PLAN O2 INHALED BRONCHODILATORS ABX PER ID D-DIMER PULMONARY HTN ESR THORACENTESIS IF SIGNIFICANT PLEURAL EFFUSION CHEST CT DR TRAN Problem List - Problems (1) Asthma Code(s): J45.909 - UNSPECIFIED ASTHMA, UNCOMPLICATED (2) Anemia Code(s): D64.9 - ANEMIA, UNSPECIFIED (3) HCAP (healthcare-associated pneumonia) Code(s): J18.9 - PNEUMONIA, UNSPECIFIED ORGANISM (4) S/P CABG x 3 Code(s): Z95.1 - PRESENCE OF AORTOCORONARY BYPASS GRAFT (5) SOB (shortness of breath) Code(s): R06.02 - SHORTNESS OF BREATH (6) Diabetes Code(s): E11.9 - TYPE 2 DIABETES MELLITUS WITHOUT COMPLICATIONS
--- NOTE | 2019-01-06 13:17 | PN ---
Physical Exam: SUBJECTIVE: Patient seen and examined at bedside. no acute events. notes some L side chest discomfort, improving. denies fever, chills, sob, n/v/d, urinary sxs OBJECTIVE: Vital Signs Period Temp Pulse Resp BP Sys/Levi Pulse Ox Last 24 Hr 98 F-99.1 F 60-77 20-24 133-153/55-72 95-97 GENERAL: Awake, alert, and fully oriented, in no acute distress. HEENT: NCAT, PERRRLA, EOMI, sclera anicteric, conjunctiva clear. oropharynx clear without exudates. MMM NECK: supple without lymphadenopathy, JVD, or masses. Chest: incision post CABG, clean/dry, TTP L breast/chest area, +2x2cm soft nontender non-erythematous mobile L axial lymph node LUNGS: decreased breath sounds on the L, no wheezing, crackles auscultated HEART: RRR, normal S1 and S2 without murmur, rub or gallop. ABDOMEN: Soft, NTND, normoactive bowel sounds, no guarding, no rebound, no masses. LOWER EXTREMITIES: 2+ pulses, warm, well-perfused. No peripheral edema. NEUROLOGICAL: Cranial nerves II-XII intact. Normal speech. Laboratory Results - last 24 hr 01/05/19 01/05/19 01/05/19 11:45 14:30 20:20 WBC RBC Hgb Hct MCV MCH MCHC RDW Plt Count MPV Absolute Neuts (auto) Neutrophils % Lymphocytes % Monocytes % Eosinophils % Basophils % Nucleated RBC % Sodium 140 Potassium 4.4 Chloride 108 H Carbon Dioxide 24 Anion Gap 9 BUN 28.0 H Creatinine 1.2 Est GFR (CKD-EPI)AfAm 53.40 Est GFR (CKD-EPI)NonAf 46.07 POC Glucometer Random Glucose 151 H Hemoglobin A1c % Calcium 8.6 Phosphorus Magnesium Total Bilirubin 0.4 AST 28 ALT 57 Alkaline Phosphatase 97 Creatine Kinase 111 97 Troponin I 0.07 H 0.06 H B-Natriuretic Peptide 2462.5 H Total Protein 6.2 L Albumin 3.1 L Triglycerides Cholesterol Total LDL Cholesterol HDL Cholesterol Blood Type A POSITIVE Antibody Screen Negative Crossmatch See Detail 01/06/19 01/06/19 01/06/19 00:40 05:53 06:37 WBC 12.9 H RBC 3.47 L Hgb 9.8 L Hct 29.9 L D MCV 86.2 MCH 28.4 MCHC 32.9 RDW 14.3 Plt Count 419 MPV 7.9 Absolute Neuts (auto) 9.8 H Neutrophils % 75.5 Lymphocytes % 17.4 D Monocytes % 5.3 Eosinophils % 1.3 Basophils % 0.5 Nucleated RBC % 0 Sodium Potassium Chloride Carbon Dioxide Anion Gap BUN Creatinine Est GFR (CKD-EPI)AfAm Est GFR (CKD-EPI)NonAf POC Glucometer 250 216 Random Glucose Hemoglobin A1c % Calcium Phosphorus Magnesium Total Bilirubin AST ALT Alkaline Phosphatase Creatine Kinase Troponin I B-Natriuretic Peptide Total Protein Albumin Triglycerides Cholesterol Total LDL Cholesterol HDL Cholesterol Blood Type Antibody Screen Crossmatch 01/06/19 01/06/19 01/06/19 06:37 06:37 11:16 WBC RBC Hgb Hct MCV MCH MCHC RDW Plt Count MPV Absolute Neuts (auto) Neutrophils % Lymphocytes % Monocytes % Eosinophils % Basophils % Nucleated RBC % Sodium 143 Potassium 4.1 Chloride 107 Carbon Dioxide 28 Anion Gap 7 L BUN 26.0 H Creatinine 1.2 Est GFR (CKD-EPI)AfAm 53.40 Est GFR (CKD-EPI)NonAf 46.07 POC Glucometer 274 Random Glucose 200 H Hemoglobin A1c % 7.0 H Calcium 8.8 Phosphorus 4.8 Magnesium 2.2 Total Bilirubin 0.5 AST 25 ALT 52 Alkaline Phosphatase 106 Creatine Kinase Troponin I B-Natriuretic Peptide Total Protein 6.5 Albumin 3.2 L Triglycerides 442 H Cholesterol 113 Total LDL Cholesterol 46 HDL Cholesterol 25 L Blood Type Antibody Screen Crossmatch Active Medications Generic Name Dose Route Start Last Admin Trade Name Freq PRN Reason Stop Dose Admin Albuterol/Ipratropium 1 amp 01/05/19 16:17 01/06/19 08:55 Duoneb - NEB 1 amp Q4H PRN Administration SHORTNESS OF BREATH Alprazolam 0.5 mg 01/05/19 16:17 01/06/19 01:59 Xanax - PO 0.5 mg HS PRN Administration ANXIETY Amlodipine Besylate 5 mg 01/06/19 10:00 01/06/19 09:32 Norvasc - PO 5 mg DAILY [facility] Administration Atorvastatin Calcium 80 mg 01/05/19 22:00 01/05/19 23:02 Lipitor - PO Not Given HS [facility] Clopidogrel Bisulfate 75 mg 01/06/19 10:00 01/06/19 09:32 Plavix - PO 75 mg DAILY [facility] Administration Heparin Sodium (Porcine) 5,000 unit 01/05/19 22:00 01/06/19 05:44 Heparin - SQ 5,000 unit TID [facility] Administration Piperacillin Sod/Tazobactam 50 mls @ 100 mls/hr 01/05/19 18:00 Sod 3.375 gm/ Dextrose IVPB Q8H-IV [facility] Protocol Insulin Aspart 1 vial 01/05/19 16:30 01/06/19 11:20 Novolog Vial Sliding Scale - SQ 6 units ACHS [facility] Administration Protocol Insulin Detemir 20 units 01/07/19 07:00 Levemir Vial SQ AM [facility] Isosorbide Mononitrate 30 mg 01/06/19 10:00 01/06/19 09:32 Imdur - PO 30 mg DAILY [facility] Administration Metoprolol Succinate 100 mg 01/06/19 10:00 01/06/19 09:32 Toprol Xl - PO 100 mg DAILY [facility] Administration Montelukast Sodium 10 mg 01/05/19 22:00 01/05/19 22:50 Singulair - PO 10 mg HS [facility] Administration Pantoprazole Sodium 40 mg 01/06/19 10:00 01/06/19 09:32 Protonix - PO 40 mg DAILY [facility] Administration ASSESSMENT/PLAN: 68 yo F with a PMHx of HTN, DM, CAD (s/p recent CABG 12/24), Asthma, presented to the ED with worsening SOB since her hospitalization @ [facility] on 12/24 for a CABG. #Acute hypoxic Respiratory Failure likely 2/2 sepsis 2/2 LLL PNA - improving. afebrile -CXR w/ consolitation, pleural effusion -s/p Vanc/zosyn in ED -Leukocytosis downtrending 14.6...12.9 -ID consulted: Dr. Adams -bcx, legionella neg -f/u MRSA screen -patient recently hospitalized for 5 days. Cont. Zosyn -duonebs PRN -Cardiology outpt started prior to admission Lasix 40mg daily @ home. s/p 20mg BID IV. will dc lasix as per cardio recs as no evidence for volume overload/CHF exacerbation -pulm consulted, Brill, for noted pleural effusion. -D-Dimer is elevated -CTA to r/o PE -may need tap if sig pleural effusion #CAD s/p CABG (12/24) -c/w Plavix, Toprol, imdur, norvasc, Lipitor 80 -patient allergic to ASA -trop downtrend .07....06 -f/u echo #Anemia - hgb 7.8 likely from recent CABG. -today hgb 9.8 -Transfuse PRN to keep Hgb >8, s/p 1 unit pRBC total so far -monitor H/H #L breast pain w/ small 2x2cm L axial lymph node - soft nontender non- erythematous mobile. breast pain and lymph node likely 2/2 post op pain 2/2 recent CABG. no signs of inx. -pt will need to f/u outpt in 1 mo for monitoring of lymph node. -last mammo in 04/14 nl -pain ctl tylenol/tramadol #HTN -imdur 30mg -norvasc 5mg -toprol 100mg #Asthma -not in exacerbation -Duoneb PRN -cont home Singulair 10mg Daily #DM -A1c 7.0 -hold home meds -BGM -uses insulin pump at home, basal rate (~ 45U/d) -will start levemir 20U HS and increase prn -ISS #FEN -no IV fluids needed -monitor lytes -diabetic diet #ppx -SQH -home protonix 40 qd Dispo tele Visit type - Emergency Visit Emergency Visit: Yes ED Registration Date: 01/05/19 Care time: The patient presented to the Emergency Department on the above date and was hospitalized for further evaluation of their emergent condition. - New Patient This patient is new to me today: Yes Date on this admission: 01/06/19 - Critical Care Critical Care patient: No
[2019-01-06] MEDS ORDERED: ACETAMINOPHEN 1000 MG/100 ML VIAL (NON FORMULARY) IVPB ONE (13:49)
[2019-01-06] MEDS ORDERED: traMADol HCL 50 MG TABLET PO PRN (13:52)
--- NOTE | 2019-01-06 14:43 | ECHO ---
Name: CARY PERKINS Exam:Adult Echocardiogram Study Date: 01/06/2019 09:34 AM Age: 68 yrs Reason For Study: s/p cabg Height: 60 in Weight: 160 lb BSA: 1.7 m2 MMode/2D Measurements & Calculations IVSd: 0.81 cm Ao root diam: 2.6 cm LVIDd: 4.2 cm LA dimension: 3.1 cm LVIDs: 2.8 cm LVPWd: 0.91 cm EDV(Teich): 78.6 ml LVOT diam: 2.0 cm ESV(Teich): 28.4 ml Doppler Measurements & Calculations MV E max tod: 121.4 cm/sec Ao V2 max: 174.5 cm/sec MV A max tod: 97.2 cm/sec Ao max P.2 mmHg MV E/A: 1.2 Ao V2 mean: 113.7 cm/sec MV dec time: 0.19 sec Ao mean P.0 mmHg Ao V2 VTI: 34.0 cm TR max tod: 282.3 cm/sec Med Peak E' Tod: 7.1 cm/sec TR max P.9 mmHg Med E/e': 17.0 Lat Peak E' Tod: 6.7 cm/sec Lat E/e': 18.2 Procedure A two-dimensional transthoracic echocardiogram with color flow and Doppler was performed. The study w as technically difficult with many images being suboptimal in quality. Left Ventricle The left ventricular size, thickness and function are normal. The left ventricular ejection fraction is normal. Septal motion is consistent with post-operative state. Right Ventricle The right ventricle is not well visualized. Atria Normal left and right atrial size and function. Mitral Valve The mitral valve is not well visualized. There is no mitral valve stenosis. There is trace to mild mi tral regurgitation. Tricuspid Valve There is mild tricuspid valve thickening. There is no tricuspid stenosis. There is mild tricuspid regurgitation. Right ventricular systolic pressure is elevated at 40-50mmHg. Aortic Valve The aortic valve is not well visualized. No hemodynamically significant valvular aortic stenosis. No aortic regurgitation is present. Pulmonic Valve The pulmonic valve is not well visualized. Great Vessels The aortic root is not well visualized. Pericardium/Pleura There is no pericardial effusion. Interpretation Summary The study was technically difficult with many images being suboptimal in quality. The left ventricular size, thickness and function are normal The left ventricular ejection fraction is normal. Septal motion is consistent with post-operative state. There is mild tricuspid regurgitation. Right ventricular systolic pressure is elevated at 40-50mmHg. There is trace to mild mitral regurgitation. MD Angelo Hopkins 01/06/2019 02:43 PM
--- NOTE | 2019-01-06 15:07 | PN ---
Teaching Attending Note Name of Resident: Michelet Lewis ATTENDING PHYSICIAN STATEMENT I saw and evaluated the patient. I reviewed the resident's note and discussed the case with the resident. I agree with the resident's findings and plan as documented. SUBJECTIVE: No fever or chills . feels better today. reports pain in L breast since sx . SOB improved OBJECTIVE: NAD Cv: RRR Lungs: L base crackles and decreased breath sounds at L base . Ext: no edema or erythema Breast: mid line surgical scar with good healing. L breast with no masses , no discharge, . L axilla with 2 cm lymph node which is mobile under skin and on deep structures. no tenderness in axilla but L breast is tender to palpation. no erythema . . ASSESSMENT AND PLAN: 68 y/o lady with h/o CAD s/p CABG 12/24/18, HTN, HLP, DM who presented with worsening SOB and hypoxia. 1- SOB and hypoxia , might be due to LLL PNA and pleural effusion. D-Dimer is elevated, and could be elevated in setting of sepsis /PNA , but need to r/o PE - change CT scan to CTA to evaluate for PE - if significant Pleural effusion , then will tap 2- Sepsis ( tachypnia, leukocytosis) 2/2 possible LL PNA. - cont zosyn - legionella neg - ofllo wblood cx nad MRSA swab 3- L breast pain: likely due to direct trauma during CABG. No masses felt in breast and no signs of cellulitis or mastitis. - L axillary lymph node is likely due to the incision , but it need to be followed in 1 month as out pt. last mammo in 04/14 reportedly NL. - patient was made aware of need to f/u 4- DM: of insulin pump now. - basal rate reviewed ( about 45 units a day ) - cont SSI and add levemir 20 units. will increase as needed 5- Acute blood loss anemia s/p CABG: received 1 unit of RBC 6- CAD, s/p CABG: cont plavix , hols asa per card cont torpol, imdur, norvasc statin - off lasix , appreciate cardiac input -echo reviewed. 7- DVT PX : Sq heparin
[2019-01-06] MEDS ORDERED: HYDROCORTISONE SOD SUCCINATE 100 MG/2 ML VIAL IVPB ONE (15:30)
--- NOTE | 2019-01-06 17:35 | PN ---
Progress Note (short form) - Note Progress Note: less chest discomfort returned from ct scan nonproductive cough- minimum Vital Signs Period Temp Pulse Resp BP Sys/Levi Pulse Ox Last 24 Hr 98 F-99.1 F 62-77 20-24 143-153/58-72 95-97 cor-rrr lungs decreased bs on the left greater then the right abd soft,nt ext no edema sternal incision clean and dry CBC, BMP 01/06/19 06:37 01/06/19 06:37 Microbiology 01/05/19 13:00 Blood - Peripheral Venous Blood Culture - Preliminary NO GROWTH OBTAINED AFTER 24 HOURS, INCUBATION TO CONTINUE FOR 4 DAYS. 01/05/19 13:00 Blood - Peripheral Venous Blood Culture - Preliminary NO GROWTH OBTAINED AFTER 24 HOURS, INCUBATION TO CONTINUE FOR 4 DAYS. 01/06/19 04:00 Urine For Antigen Detection Legionella Antigen - Final 01/06/19 04:00 Urine For Antigen Detection Streptococcus pneumoniae Antigen (M - Final nares swab pending a/p probable pneumonia- cannot r/o effusion with atelectasis port op cabg f/u chest ct continue zosyn f/u nares mrsa screen cad- s/p cabg Problem List - Problems (1) HCAP (healthcare-associated pneumonia) Code(s): J18.9 - PNEUMONIA, UNSPECIFIED ORGANISM (2) Anemia Code(s): D64.9 - ANEMIA, UNSPECIFIED (3) S/P CABG x 3 Code(s): Z95.1 - PRESENCE OF AORTOCORONARY BYPASS GRAFT
[2019-01-06] MEDS ORDERED: ACETAMINOPHEN 500 MG TABLET (FP) PO PRN (20:00)
[2019-01-06] MEDS: MONTELUKAST NA 10 MG TABLET PO SCH (22:24)
[2019-01-06] MEDS: ATORVASTATIN CA 80 MG TABLET (FP) PO SCH (22:24)
[2019-01-07] MEDS ORDERED: PIPERACILLIN/TAZOBACTAM 3.375 GM VIAL IVPB ONE ×3 (02:14→17:01)
[2019-01-07] MEDS ORDERED: DEXTROSE 5%-WATER - 50 ML IVPB ONE ×3 (02:16→17:02)
[2019-01-07] MEDS: PIPERACILLIN/TAZOB 3.375 GM 3.375 GM in DEXTROSE 5%-WATER - 50 ML IVPB SCH ×3 (02:31→17:05)
[2019-01-07] MEDS: ALBUTEROL SO4 2.5/IPRATROPIUM 0.5 INH SOL 3 ML VIAL.NEB. NEB PRN ×2 (04:41→07:29)
[2019-01-07] MEDS ORDERED: INSULIN (NOVOLOG) ASPART 100 UNITS/ML 10ML VIAL ONE ×2 (05:56→12:15)
[2019-01-07] MEDS: HEPARIN NA (PORCINE) 5,000 UNITS/ML 1ML VIAL SQ SCH ×3 (06:10→21:05)
[2019-01-07] MEDS: INSULIN SLIDING SCALE (NOVOLOG) 1 VIAL SQ SCH ×3 (06:12→16:59)
[2019-01-07] MEDS ORDERED: INSULIN (LEVEMIR) 100 UNITS/ML UNITS SQ SCH ×2 (07:00→07:38)
[2019-01-07 09:01] LABS: BILIRUBIN,TOTAL 0.4 mg/dL (0.2-1); BLOOD UREA NITROGEN 26.5 mg/dL (7-18); CALCIUM 8.8 mg/dL (8.5-10.1); CREATININE 1.2 mg/dL (0.55-1.3); MAGNESIUM 2.2 mg/dL (1.8-2.4); PHOSPHOROUS 4.3 mg/dL (2.5-4.9); POTASSIUM 4.1 mmol/L (3.5-5.1); TOT PROT 6.4 g/dl (6.4-8.2)
[2019-01-07 09:04] LABS: BASO % 0.5 % (0-2.0); EOS % 0.6 % (0-4.5); HEMATOCRIT 28.6 % (32.4-45.2); HEMOGLOBIN 9.4 GM/dL (10.7-15.3); LYMPH % 18.4 % (8-40); MCH 28.2 pg (25.7-33.7); MEAN CELL VOLUME 85.2 fl (80-96); MEAN PLT VOLUME 7.8 fl (7.5-11.1); MONO % 6.8 % (3.8-10.2); NEUT % 73.7 % (42.8-82.8); RBC 3.36 M/mm3 (3.60-5.2); RDW 14.6 % (11.6-15.6); WHITE BLOOD COUNT 11.9 K/mm3 (4.0-10.0)
[2019-01-07 09:09] LABS: PLATELET COUNT 424 K/MM3 (134-434)
[2019-01-07] MEDS ORDERED: FUROSEMIDE 40 MG/4 ML INJECTABLE VIAL IVPUSH SCH (10:00)
[2019-01-07] MEDS: ISOSORBIDE MONONITRATE 30 MG TAB.SR.24H (FP) PO SCH (10:19)
[2019-01-07] MEDS: CLOPIDOGREL BISULFATE 75 MG TABLET (FP) PO SCH (10:19)
[2019-01-07] MEDS: amLODIPine BESYLATE 5 MG TABLET (FP) PO SCH (10:19)
[2019-01-07] MEDS: PANTOPRAZOLE 40 MG TABLET (FP) PO SCH (10:19)
--- NOTE | 2019-01-07 11:12 | PN ---
Progress Note (short form) - Note Progress Note: s: no cp palps dizzy; sob improving o: Vital Signs Period Temp Pulse Resp BP Sys/Levi Pulse Ox Last 24 Hr 98.2 F-98.9 F 65-74 18-22 133-168/58-67 96-98 nad no jvd rrr s1s2 no mrg left base crackles/dec bs, nl eff aao3 no le edema, no c/c abd nt nd pos bs no jaundice diaphoresis Current Medications Generic Name Dose Route Start Last Admin Trade Name Freq PRN Reason Stop Dose Admin Acetaminophen 1,000 mg 01/06/19 20:00 Tylenol - PO Q6H PRN PAIN LEVEL 6-10 Albuterol/Ipratropium 1 amp 01/05/19 16:17 01/07/19 07:29 Duoneb - NEB 1 amp Q4H PRN Administration SHORTNESS OF BREATH Alprazolam 0.5 mg 01/05/19 16:17 01/06/19 16:01 Xanax - PO 0.5 mg HS PRN Administration ANXIETY Amlodipine Besylate 5 mg 01/06/19 10:00 01/07/19 10:19 Norvasc - PO 5 mg DAILY [facility] Administration Atorvastatin Calcium 80 mg 01/05/19 22:00 01/06/19 22:24 Lipitor - PO 80 mg HS [facility] Administration Clopidogrel Bisulfate 75 mg 01/06/19 10:00 01/07/19 10:19 Plavix - PO 75 mg DAILY [facility] Administration Furosemide 40 mg 01/07/19 10:00 01/07/19 10:19 Lasix Injection - IVPUSH 40 mg DAILY [facility] Administration Heparin Sodium (Porcine) 5,000 unit 01/05/19 22:00 01/07/19 06:10 Heparin - SQ 5,000 unit TID [facility] Administration Piperacillin Sod/Tazobactam 50 mls @ 100 mls/hr 01/06/19 18:00 01/07/19 10:18 Sod 3.375 gm/ Dextrose IVPB 100 mls/hr Q8H-IV [facility] Administration Protocol Insulin Aspart 1 vial 01/06/19 16:30 01/07/19 06:12 Novolog Vial Sliding Scale - SQ 4 units TIDAC [facility] Administration Protocol Insulin Detemir 30 units 01/07/19 07:38 Levemir Vial SQ AM [facility] Isosorbide Mononitrate 30 mg 01/06/19 10:00 01/07/19 10:19 Imdur - PO 30 mg DAILY [facility] Administration Metoprolol Succinate 100 mg 01/06/19 10:00 01/07/19 10:19 Toprol Xl - PO 100 mg DAILY [facility] Administration Montelukast Sodium 10 mg 01/05/19 22:00 01/06/19 22:24 Singulair - PO 10 mg HS [facility] Administration Pantoprazole Sodium 40 mg 01/06/19 10:00 01/07/19 10:19 Protonix - PO 40 mg DAILY [facility] Administration Tramadol HCl 50 mg 01/06/19 13:52 Ultram - PO Q8H PRN PAIN LEVEL 7 - 10 CBC, BMP 01/07/19 07:50 01/07/19 07:50 echo 12/2018: tds; nl lv, rv tds, mild tr, rvsp 40-50 echo 08/2015: nl lv/rv, no sig valve path tele: sr, artifact cxr: left lower lobe consolidation and eff ecg: sr nl intervals no ischemic changes a/p: 68 f hx cad s/p elective cabg, no [place] (was just dc about a week ago from [facility]), asthma, hld, htn, dm, here with sob. sob, pna: -presentation c/w pna, continue abx, supplemental o2 -ct showing effs, will start iv lasix today, monitor daily chem7 cad: -s/p recent cabg -no signs acs -trop borderline elevated with flat trend and nl ck, likely not acs -cont home toprol 25, atorva 40, dilt 240 qd, clonidine 0.1 qwk patch, chlorthalidone 25, aldactone 12.5, fenofibrate 145, benicar. -on plavix anemia: -likely related to recent surgery, improved now hld: -cont statin htn: -cont home meds: toprol 25, dilt 240 qd, clonidine 0.1 qwk patch, chlorthalidone 25, aldactone 12.5, benicar.
--- NOTE | 2019-01-07 11:16 | PN ---
Physical Exam: SUBJECTIVE: Patient seen and examined at bedside. no acute events. L side chest discomfort, improved. notes some vaginal itchiness and white discharge. denies fever, chills, sob, n/v/d, urinary sxs OBJECTIVE: Vital Signs Period Temp Pulse Resp BP Sys/Levi Pulse Ox Last 24 Hr 98.2 F-98.9 F 65-74 20-22 133-151/58-67 96 GENERAL: AOX3 NAD HEENT: NCAT, PERRRLA, EOMI, sclera anicteric, conjunctiva clear. oropharynx clear without exudates. MMM NECK: supple without lymphadenopathy, JVD, or masses. Chest: incision post CABG, clean/dry, TTP L breast/chest area, +2x2cm soft nontender non-erythematous mobile L axial lymph node LUNGS: decreased breath sounds on the L, no wheezing, crackles auscultated HEART: RRR, normal S1 and S2 without murmur, rub or gallop. ABDOMEN: Soft, NTND, normoactive bowel sounds, no guarding, no rebound, no masses. LOWER EXTREMITIES: 2+ pulses, warm, well-perfused. No peripheral edema. NEUROLOGICAL: Cranial nerves II-XII intact. Normal speech. Laboratory Results - last 24 hr 01/06/19 01/06/19 01/06/19 11:16 13:40 13:40 WBC RBC Hgb Hct MCV MCH MCHC RDW Plt Count MPV Absolute Neuts (auto) Neutrophils % Lymphocytes % Monocytes % Eosinophils % Basophils % Nucleated RBC % ESR 73 H D-Dimer 5570 H Sodium Potassium Chloride Carbon Dioxide Anion Gap BUN Creatinine Est GFR (CKD-EPI)AfAm Est GFR (CKD-EPI)NonAf POC Glucometer 274 Random Glucose Calcium Phosphorus Magnesium Total Bilirubin AST ALT Alkaline Phosphatase Troponin I Total Protein Albumin 01/06/19 01/06/19 01/06/19 17:31 17:40 22:34 WBC RBC Hgb Hct MCV MCH MCHC RDW Plt Count MPV Absolute Neuts (auto) Neutrophils % Lymphocytes % Monocytes % Eosinophils % Basophils % Nucleated RBC % ESR D-Dimer Sodium Potassium Chloride Carbon Dioxide Anion Gap BUN Creatinine Est GFR (CKD-EPI)AfAm Est GFR (CKD-EPI)NonAf POC Glucometer 254 314 Random Glucose Calcium Phosphorus Magnesium Total Bilirubin AST ALT Alkaline Phosphatase Troponin I 0.06 H Total Protein Albumin 01/07/19 01/07/19 01/07/19 05:39 07:50 07:50 WBC 11.9 H RBC 3.36 L Hgb 9.4 L Hct 28.6 L MCV 85.2 MCH 28.2 MCHC 33.0 RDW 14.6 Plt Count 424 MPV 7.8 Absolute Neuts (auto) 8.8 H Neutrophils % 73.7 Lymphocytes % 18.4 Monocytes % 6.8 Eosinophils % 0.6 Basophils % 0.5 Nucleated RBC % 0 ESR D-Dimer Sodium 144 Potassium 4.1 Chloride 108 H Carbon Dioxide 29 Anion Gap 7 L BUN 26.5 H Creatinine 1.2 Est GFR (CKD-EPI)AfAm 53.40 Est GFR (CKD-EPI)NonAf 46.07 POC Glucometer 235 Random Glucose 211 H Calcium 8.8 Phosphorus 4.3 Magnesium 2.2 Total Bilirubin 0.4 AST 19 ALT 44 Alkaline Phosphatase 94 Troponin I Total Protein 6.4 Albumin 3.0 L Active Medications Generic Name Dose Route Start Last Admin Trade Name Freq PRN Reason Stop Dose Admin Acetaminophen 1,000 mg 01/06/19 20:00 Tylenol - PO Q6H PRN PAIN LEVEL 6-10 Albuterol/Ipratropium 1 amp 01/05/19 16:17 01/07/19 07:29 Duoneb - NEB 1 amp Q4H PRN Administration SHORTNESS OF BREATH Alprazolam 0.5 mg 01/05/19 16:17 01/06/19 16:01 Xanax - PO 0.5 mg HS PRN Administration ANXIETY Amlodipine Besylate 5 mg 01/06/19 10:00 01/07/19 10:19 Norvasc - PO 5 mg DAILY JAMEL Administration Atorvastatin Calcium 80 mg 01/05/19 22:00 01/06/19 22:24 Lipitor - PO 80 mg HS JAMEL Administration Clopidogrel Bisulfate 75 mg 01/06/19 10:00 01/07/19 10:19 Plavix - PO 75 mg DAILY JAMEL Administration Furosemide 40 mg 01/07/19 10:00 01/07/19 10:19 Lasix Injection - IVPUSH 40 mg DAILY JAMEL Administration Heparin Sodium (Porcine) 5,000 unit 01/05/19 22:00 01/07/19 06:10 Heparin - SQ 5,000 unit TID JAMLE Administration Piperacillin Sod/Tazobactam 50 mls @ 100 mls/hr 06/12/19 18:00 01/07/19 10:18 Sod 3.375 gm/ Dextrose IVPB 100 mls/hr Q8H-IV JAMEL Administration Protocol Insulin Aspart 1 vial 01/06/19 16:30 01/07/19 06:12 Novolog Vial Sliding Scale - SQ 4 units TIDAC JAMEL Administration Protocol Insulin Detemir 30 units 01/07/19 07:38 Levemir Vial SQ AM J[facility]EL Isosorbide Mononitrate 30 mg 01/06/19 10:00 01/07/19 10:19 Imdur - PO 30 mg DAILY JAMEL Administration Metoprolol Succinate 100 mg 01/06/19 10:00 01/07/19 10:19 Toprol Xl - PO 100 mg DAILY JAMEL Administration Montelukast Sodium 10 mg 01/05/19 22:00 01/06/19 22:24 Singulair - PO 10 mg HS JAMEL Administration Pantoprazole Sodium 40 mg 01/06/19 10:00 01/07/19 10:19 Protonix - PO 40 mg DAILY JAMEL Administration Tramadol HCl 50 mg 01/06/19 13:52 Ultram - PO Q8H PRN PAIN LEVEL 7 - 10 ECHO Interpretation Summary The study was technically difficult with many images being suboptimal in quality. The left ventricular size, thickness and function are normal The left ventricular ejection fraction is normal. Septal motion is consistent with post-operative state. There is mild tricuspid regurgitation. Right ventricular systolic pressure is elevated at 40-50mmHg. There is trace to mild mitral regurgitation. MD Angelo Hopkins 01/06/2019 02:43 PM [id number] CT/CHEST CTA HISTORY PROVIDED: Rule out PE. TECHNIQUE: Sequential axial images were obtained from the thoracic inlet through the domes of the diaphragm following the administration of intravenous contrast material. CTA pulmonary embolism protocol was utilized, including coronal and oblique coronal MIP images. There is adequate opacification of the central pulmonary vasculature with no filling defects suspicious for pulmonary embolism. Evaluation of the lung joel demonstrates moderate bilateral pleural effusions , left greater than right. There is extensive atelectasis within both lower lobes with additional areas of consolidation/atelectasis within the upper lobes. No mediastinal masses, fluid collections or lymphadenopathy identified. The heart is enlarged. The patient is S/P CABG procedure. Evaluation of the upper abdomen demonstrates no acute abnormalities. There is enlargement of the left adrenal gland. IMPRESSION: 1. No evidence of pulmonary embolism. 2. Bilateral pleural effusions and lower lobe atelectasis. Please see above discussion. Reported By: Anderson Hyman MD 01/06/19 5086 ASSESSMENT/PLAN: 68 yo F with a PMHx of HTN, DM, CAD (s/p recent CABG 12/24), Asthma, presented to the ED with worsening SOB since her hospitalization @ [facility] on 12/24 for a CABG. #Acute hypoxic Respiratory Failure 2/2 b/l pleural effusions - improving. afebrile. based on echo and CT findings unclear if effusions are 2/2 dCHF vs sepsis 2/2 LLL PNA vs post op inflammatory changes from recent CABG. -CXR w/ consolitation, pleural effusion -s/p Vanc/zosyn in ED -Leukocytosis downtrending 14.6...12.9...11.9 -ID consulted: Dr. Adams -bcx, legionella, MRSA screen neg -patient recently hospitalized for 5 days. C/w Zosyn d2 -duonebs PRN -Cardiology outpt started prior to admission Lasix 40mg daily @ home. s/p 20mg BID IV x1 -pulm consulted, Rosanna, for noted pleural effusion. -ESR 73 -D-Dimer is elevated -CTA reviewed above, neg for PE, mod b/l effusions -pleural effusion: tap vs diuresis, will consult pulm/cardio -cardio consulted, Ariana #CAD s/p CABG (12/24) -c/w Plavix, Toprol, imdur, norvasc, Lipitor 80 -patient allergic to ASA -trop downtrend .07....06....06 -echo reviewed above, nl EF, elevated RVP #Anemia - hgb 7.8 likely from recent CABG. -hgb 9.8...9.4 -Transfuse PRN to keep Hgb >8, s/p 1 unit pRBC total so far -monitor H/H #L breast pain w/ small 2x2cm L axial lymph node - soft nontender non- erythematous mobile. breast pain and lymph node likely 2/2 post op pain 2/2 recent CABG. no signs of inx. -pt will need to f/u outpt in 1 mo for monitoring of lymph node. -last mammo in 04/14 nl -pain ctl tylenol/tramadol #vaginal yeast infx - itchy white discharge diflucan 150mg x1. will redose if no improvement after 72 hr #HTN -imdur 30mg -norvasc 5mg -toprol 100mg #Asthma -not in exacerbation -Duoneb PRN -cont home Singulair 10mg Daily #DM -A1c 7.0 -hold home meds -BGM -uses insulin pump at home, basal rate (~ 45U/d) -increase levemir 20 to 30U HS and increase prn -ISS #FEN -no IV fluids needed -monitor lytes -diabetic diet #ppx -SQH -home protonix 40 qd Dispo tele Visit type - Emergency Visit Emergency Visit: Yes ED Registration Date: 01/05/19 Care time: The patient presented to the Emergency Department on the above date and was hospitalized for further evaluation of their emergent condition. - New Patient This patient is new to me today: Yes Date on this admission: 01/07/19 - Critical Care Critical Care patient: No
--- NOTE | 2019-01-07 11:29 | PN ---
Teaching Attending Note Name of Resident: Sukhdeep Levi ATTENDING PHYSICIAN STATEMENT I saw and evaluated the patient. I reviewed the resident's note and discussed the case with the resident. I agree with the resident's findings and plan as documented. SUBJECTIVE: She feels better today. SOBis much better. Has itching in her genital area especially around her clitoris. no fever or chills. OBJECTIVE: NAD CV: RRR Lungs: decreased breath sounds at bases. Ext: 1+ pitting edema on legs . No erythema . ASSESSMENT AND PLAN: 68 y/o lady with h/o CAD s/p CABG 12/24/18, HTN, HLP, DM who presented with worsening SOB and hypoxia. 1- SOB and hypoxia, due to probable PNA andb/l pleural effusions. CT scan with infiltrates in upper and lower lobs with atelectasis, and b/l Pleural effusion L > R. No PE - cont zosyn - started on diuresis - will touch base with pulm, might not be necessary to tap Effusion - repeat ESR in a couple days 2- Sepsis 2/2 probable b/l PNA - cont zosyn -blood cx NGTD 3- Acute diastolic heart failure exacerbation : - cont lasix for now . monitor weight and I&O 4- DM: off insulin pump now. - increase levemir - cont SSI 5- Acute blood loss anemia s/p CABG: received 1 unit of RBC. stable HB 6- CAD, s/p CABG: cont plavix. ASA on hold cont torpol, imdur, norvasc, and statin 7- L axillary lymph node enlargement: f/u as out pt . 8- L adrenal gland enlargement on CT: f/u as out pt DVT px : heparin Sq HLOC
[2019-01-07] MEDS ORDERED: FLUCONAZOLE 150 MG TABLET PO ONE (11:45)
[2019-01-07] MEDS ORDERED: INSULIN (LEVEMIR) 100 UNITS/ML UNITS SQ ONE (12:17)
--- NOTE | 2019-01-07 12:22 | PN ---
Progress Note (short form) - Note Progress Note: SOB seems better today. No CP. No hemoptysis. No acute events overnight. Intake & Output 01/04/19 01/05/19 01/06/19 01/07/19 23:59 23:59 23:59 23:59 Intake Total 550 50 Balance 550 50 Weight 160 lb 160 lb Last Vital Signs Temp Pulse Resp BP Pulse Ox 98.2 F 72 18 168/59 L 98 01/07/19 10:00 01/07/19 10:00 01/07/19 10:00 01/07/19 10:00 01/07/19 09:00 Active Medications Acetaminophen (Tylenol -) 1,000 mg PO Q6H PRN PRN Reason: PAIN LEVEL 6-10 Albuterol/Ipratropium (Duoneb -) 1 amp NEB Q4H PRN PRN Reason: SHORTNESS OF BREATH Last Admin: 01/07/19 07:29 Dose: 1 amp Alprazolam (Xanax -) 0.5 mg PO HS PRN PRN Reason: ANXIETY Last Admin: 01/06/19 16:01 Dose: 0.5 mg Amlodipine Besylate (Norvasc -) 5 mg PO DAILY [facility] Last Admin: 01/07/19 10:19 Dose: 5 mg Atorvastatin Calcium (Lipitor -) 80 mg PO HS [facility] Last Admin: 01/06/19 22:24 Dose: 80 mg Clopidogrel Bisulfate (Plavix -) 75 mg PO DAILY [facility] Last Admin: 01/07/19 10:19 Dose: 75 mg Furosemide (Lasix Injection -) 40 mg IVPUSH DAILY [facility] Last Admin: 01/07/19 10:19 Dose: 40 mg Heparin Sodium (Porcine) (Heparin -) 5,000 unit SQ TID [facility] Last Admin: 01/07/19 06:10 Dose: 5,000 unit Piperacillin Sod/Tazobactam (Sod 3.375 gm/ Dextrose) 50 mls @ 100 mls/hr IVPB Q8H-IV JAMEL; Protocol Last Admin: 01/07/19 10:18 Dose: 100 mls/hr Insulin Aspart (Novolog Vial Sliding Scale -) 1 vial SQ TIDAC [facility]; Protocol Last Admin: 01/07/19 06:12 Dose: 4 units Insulin Detemir (Levemir Vial) 30 units SQ AM [facility] Isosorbide Mononitrate (Imdur -) 30 mg PO DAILY [facility] Last Admin: 01/07/19 10:19 Dose: 30 mg Metoprolol Succinate (Toprol Xl -) 100 mg PO DAILY [facility] Last Admin: 01/07/19 10:19 Dose: 100 mg Montelukast Sodium (Singulair -) 10 mg PO HS [facility] Last Admin: 01/06/19 22:24 Dose: 10 mg Pantoprazole Sodium (Protonix -) 40 mg PO DAILY [facility] Last Admin: 01/07/19 10:19 Dose: 40 mg Tramadol HCl (Ultram -) 50 mg PO Q8H PRN PRN Reason: PAIN LEVEL 7 - 10 GENERAL: NAD HEENT: sclera anicteric, conjunctiva clear NECK: supple without lymphadenopathy, JVD, or masses. Chest: incision post CABG, clean/dry LUNGS: Bibasilar rhonchi, no wheeze HEART: RRR, normal S1 and S2 without murmur, rub or gallop. ABDOMEN: Soft, NTND, normoactive bowel sounds, no guarding, no rebound, no masses. LOWER EXTREMITIES: 2+ pulses, warm, well-perfused. No peripheral edema. NEUROLOGICAL: Non-focal Laboratory Results - last 24 hr 01/06/19 01/06/19 01/06/19 13:40 13:40 17:31 WBC RBC Hgb Hct MCV MCH MCHC RDW Plt Count MPV Absolute Neuts (auto) Neutrophils % Lymphocytes % Monocytes % Eosinophils % Basophils % Nucleated RBC % ESR 73 H D-Dimer 5570 H Sodium Potassium Chloride Carbon Dioxide Anion Gap BUN Creatinine Est GFR (CKD-EPI)AfAm Est GFR (CKD-EPI)NonAf POC Glucometer 254 Random Glucose Calcium Phosphorus Magnesium Total Bilirubin AST ALT Alkaline Phosphatase Troponin I Total Protein Albumin 01/06/19 01/06/19 01/07/19 17:40 22:34 05:39 WBC RBC Hgb Hct MCV MCH MCHC RDW Plt Count MPV Absolute Neuts (auto) Neutrophils % Lymphocytes % Monocytes % Eosinophils % Basophils % Nucleated RBC % ESR D-Dimer Sodium Potassium Chloride Carbon Dioxide Anion Gap BUN Creatinine Est GFR (CKD-EPI)AfAm Est GFR (CKD-EPI)NonAf POC Glucometer 314 235 Random Glucose Calcium Phosphorus Magnesium Total Bilirubin AST ALT Alkaline Phosphatase Troponin I 0.06 H Total Protein Albumin 01/07/19 01/07/19 01/07/19 07:50 07:50 11:52 WBC 11.9 H RBC 3.36 L Hgb 9.4 L Hct 28.6 L MCV 85.2 MCH 28.2 MCHC 33.0 RDW 14.6 Plt Count 424 MPV 7.8 Absolute Neuts (auto) 8.8 H Neutrophils % 73.7 Lymphocytes % 18.4 Monocytes % 6.8 Eosinophils % 0.6 Basophils % 0.5 Nucleated RBC % 0 ESR D-Dimer Sodium 144 Potassium 4.1 Chloride 108 H Carbon Dioxide 29 Anion Gap 7 L BUN 26.5 H Creatinine 1.2 Est GFR (CKD-EPI)AfAm 53.40 Est GFR (CKD-EPI)NonAf 46.07 POC Glucometer 259 Random Glucose 211 H Calcium 8.8 Phosphorus 4.3 Magnesium 2.2 Total Bilirubin 0.4 AST 19 ALT 44 Alkaline Phosphatase 94 Troponin I Total Protein 6.4 Albumin 3.0 L Problem List - Problems (1) Asthma Code(s): J45.909 - UNSPECIFIED ASTHMA, UNCOMPLICATED (2) Anemia Code(s): D64.9 - ANEMIA, UNSPECIFIED (3) HCAP (healthcare-associated pneumonia) Code(s): J18.9 - PNEUMONIA, UNSPECIFIED ORGANISM (4) S/P CABG x 3 Code(s): Z95.1 - PRESENCE OF AORTOCORONARY BYPASS GRAFT (5) SOB (shortness of breath) Code(s): R06.02 - SHORTNESS OF BREATH (6) Diabetes Code(s): E11.9 - TYPE 2 DIABETES MELLITUS WITHOUT COMPLICATIONS IMP DYSPNEA: LIKELY DUE TO BILATERAL PLEURAL EFFUSIONS PE RULED OUT R/O PNA ASHD S/P CABG ASTHMA DM HTN ANEMIA PLAN O2 INHALED BRONCHODILATORS ABX PER ID DIURETICS DR TILLMAN
[2019-01-07] MEDS ORDERED: PT OWN MED DRAWER 7, Y5N ONE (16:46)
--- NOTE | 2019-01-07 18:05 | PN ---
Progress Note (short form) - Note Progress Note: less chest discomfort no cough still some SOB Vital Signs Period Temp Pulse Resp BP Sys/Levi Pulse Ox Last 24 Hr 98.1 F-98.7 F 65-74 18-20 133-168/59-67 96-98 cor-rrr lungs decreased bs at bases abd soft,nt ext no edema sternal wound dry, no drainage CBC, BMP 01/07/19 07:50 01/07/19 07:50 Microbiology 01/05/19 13:00 Blood - Peripheral Venous Blood Culture - Preliminary NO GROWTH OBTAINED AFTER 48 HOURS, INCUBATION TO CONTINUE FOR 3 DAYS. 01/05/19 13:00 Blood - Peripheral Venous Blood Culture - Preliminary NO GROWTH OBTAINED AFTER 48 HOURS, INCUBATION TO CONTINUE FOR 3 DAYS. 01/06/19 03:40 Nares - Mrsa Screen - Right MRSA Screen - Final NO MRSA ISOLATED 01/06/19 03:40 Nares - Mrsa Screen - Left MRSA Screen - Final NO MRSA ISOLATED 01/06/19 04:00 Urine For Antigen Detection Legionella Antigen - Final 01/06/19 04:00 Urine For Antigen Detection Streptococcus pneumoniae Antigen (M - Final chest CTA- no PE, bilateral effusions with atelectasis, cannot r/o effusion a/p bilateral effusions with atelectasis cannot r/o pneumonia, leukocytosis improving continue zosyn continue diuresis cad- s/p cabg Problem List - Problems (1) HCAP (healthcare-associated pneumonia) Code(s): J18.9 - PNEUMONIA, UNSPECIFIED ORGANISM (2) Anemia Code(s): D64.9 - ANEMIA, UNSPECIFIED (3) S/P CABG x 3 Code(s): Z95.1 - PRESENCE OF AORTOCORONARY BYPASS GRAFT
[2019-01-07] MEDS: ATORVASTATIN CA 80 MG TABLET (FP) PO SCH (21:04)
[2019-01-07] MEDS: MONTELUKAST NA 10 MG TABLET PO SCH (21:04)
[2019-01-07] MEDS ORDERED: INSULIN SLIDING SCALE (NOVOLOG) 1 VIAL SQ SCH (22:00)
[2019-01-07] MEDS ORDERED: traMADol HCL 50 MG TABLET PO PRN (23:30)
[2019-01-08] MEDS: ALBUTEROL SO4 2.5/IPRATROPIUM 0.5 INH SOL 3 ML VIAL.NEB. NEB PRN ×2 (00:52→21:20)
[2019-01-08] MEDS: PIPERACILLIN/TAZOB 3.375 GM 3.375 GM in DEXTROSE 5%-WATER - 50 ML IVPB SCH ×5 (01:26→17:28)
[2019-01-08] MEDS: HEPARIN NA (PORCINE) 5,000 UNITS/ML 1ML VIAL SQ SCH ×3 (05:59→22:16)
[2019-01-08] MEDS: INSULIN (LEVEMIR) 100 UNITS/ML UNITS SQ SCH (06:03)
[2019-01-08] MEDS: INSULIN SLIDING SCALE (NOVOLOG) 1 VIAL SQ SCH ×5 (06:03→17:34)
--- NOTE | 2019-01-08 06:40 | PN ---
Physical Exam: SUBJECTIVE: Patient seen and examined at bedside. no acute events. L side chest discomfort, improved. denies fever, chills, sob, n/v/d, urinary sxs OBJECTIVE: Vital Signs Period Temp Pulse Resp BP Sys/Levi Pulse Ox Last 24 Hr 98.1 F-99.0 F 65-72 18-20 153-168/59-70 98-98 GENERAL: AOX3 NAD HEENT: NCAT, PERRRLA, EOMI, sclera anicteric, conjunctiva clear. oropharynx clear without exudates. MMM NECK: supple without lymphadenopathy, JVD, or masses. Chest: incision post CABG, clean/dry, TTP L breast/chest area, +2x2cm soft nontender non-erythematous mobile L axial lymph node LUNGS: decreased breath sounds on the L, no wheezing, crackles auscultated HEART: RRR, normal S1 and S2 without murmur, rub or gallop. ABDOMEN: Soft, NTND, normoactive bowel sounds, no guarding, no rebound, no masses. LOWER EXTREMITIES: 2+ pulses, warm, well-perfused. No peripheral edema. NEUROLOGICAL: Cranial nerves II-XII intact. Normal speech. Laboratory Results - last 24 hr 01/07/19 01/07/19 01/07/19 07:50 07:50 11:52 WBC 11.9 H RBC 3.36 L Hgb 9.4 L Hct 28.6 L MCV 85.2 MCH 28.2 MCHC 33.0 RDW 14.6 Plt Count 424 MPV 7.8 Absolute Neuts (auto) 8.8 H Neutrophils % 73.7 Lymphocytes % 18.4 Monocytes % 6.8 Eosinophils % 0.6 Basophils % 0.5 Nucleated RBC % 0 Sodium 144 Potassium 4.1 Chloride 108 H Carbon Dioxide 29 Anion Gap 7 L BUN 26.5 H Creatinine 1.2 Est GFR (CKD-EPI)AfAm 53.40 Est GFR (CKD-EPI)NonAf 46.07 POC Glucometer 259 Random Glucose 211 H Calcium 8.8 Phosphorus 4.3 Magnesium 2.2 Total Bilirubin 0.4 AST 19 ALT 44 Alkaline Phosphatase 94 Total Protein 6.4 Albumin 3.0 L 01/07/19 01/07/19 01/08/19 16:57 21:04 05:56 WBC RBC Hgb Hct MCV MCH MCHC RDW Plt Count MPV Absolute Neuts (auto) Neutrophils % Lymphocytes % Monocytes % Eosinophils % Basophils % Nucleated RBC % Sodium Potassium Chloride Carbon Dioxide Anion Gap BUN Creatinine Est GFR (CKD-EPI)AfAm Est GFR (CKD-EPI)NonAf POC Glucometer 224 215 189 Random Glucose Calcium Phosphorus Magnesium Total Bilirubin AST ALT Alkaline Phosphatase Total Protein Albumin Active Medications Generic Name Dose Route Start Last Admin Trade Name Freq PRN Reason Stop Dose Admin Acetaminophen 1,000 mg 01/07/19 23:30 Tylenol - PO Q6H PRN PAIN LEVEL 6-10 Albuterol/Ipratropium 1 amp 01/07/19 23:30 01/08/19 00:52 Duoneb - NEB 1 amp Q4H PRN Administration SHORTNESS OF BREATH Alprazolam 0.5 mg 01/07/19 23:30 Xanax - PO HS PRN ANXIETY Amlodipine Besylate 5 mg 01/08/19 10:00 Norvasc - PO DAILY [facility] Atorvastatin Calcium 80 mg 01/08/19 22:00 Lipitor - PO HS [facility] Clopidogrel Bisulfate 75 mg 01/08/19 10:00 Plavix - PO DAILY [facility] Furosemide 40 mg 01/08/19 10:00 Lasix Injection - IVPUSH DAILY [facility] Heparin Sodium (Porcine) 5,000 unit 01/08/19 06:00 01/08/19 05:59 Heparin - SQ 5,000 unit TID JAMEL Administration Piperacillin Sod/Tazobactam 50 mls @ 100 mls/hr 01/08/19 02:00 01/08/19 01:26 Sod 3.375 gm/ Dextrose IVPB 100 mls/hr Q8H-IV [facility] Administration Protocol Insulin Aspart 1 vial 01/08/19 07:00 01/08/19 06:03 Novolog Vial Sliding Scale - SQ 2 units TIDAC [facility] Administration Protocol Insulin Detemir 30 units 01/08/19 07:00 01/08/19 06:03 Levemir Vial SQ 30 units AM [facility] Administration Isosorbide Mononitrate 30 mg 01/08/19 10:00 Imdur - PO DAILY [facility] Metoprolol Succinate 100 mg 01/08/19 10:00 Toprol Xl - PO DAILY [facility] Montelukast Sodium 10 mg 01/08/19 22:00 Singulair - PO HS [facility] Pantoprazole Sodium 40 mg 01/08/19 10:00 Protonix - PO DAILY [facility] Tramadol HCl 50 mg 01/07/19 23:30 Ultram - PO Q8H PRN PAIN LEVEL 7 - 10 ECHO Interpretation Summary The study was technically difficult with many images being suboptimal in quality. The left ventricular size, thickness and function are normal The left ventricular ejection fraction is normal. Septal motion is consistent with post-operative state. There is mild tricuspid regurgitation. Right ventricular systolic pressure is elevated at 40-50mmHg. There is trace to mild mitral regurgitation. MD Angelo Hopkins 01/06/2019 02:43 PM [id number] CT/CHEST CTA HISTORY PROVIDED: Rule out PE. TECHNIQUE: Sequential axial images were obtained from the thoracic inlet through the domes of the diaphragm following the administration of intravenous contrast material. CTA pulmonary embolism protocol was utilized, including coronal and oblique coronal MIP images. There is adequate opacification of the central pulmonary vasculature with no filling defects suspicious for pulmonary embolism. Evaluation of the lung joel demonstrates moderate bilateral pleural effusions , left greater than right. There is extensive atelectasis within both lower lobes with additional areas of consolidation/atelectasis within the upper lobes. No mediastinal masses, fluid collections or lymphadenopathy identified. The heart is enlarged. The patient is S/P CABG procedure. Evaluation of the upper abdomen demonstrates no acute abnormalities. There is enlargement of the left adrenal gland. IMPRESSION: 1. No evidence of pulmonary embolism. 2. Bilateral pleural effusions and lower lobe atelectasis. Please see above discussion. Reported By: Anderson Hyman MD 01/06/19 5244 ASSESSMENT/PLAN: 68 yo F with a PMHx of HTN, DM, CAD (s/p recent CABG 12/24), Asthma, presented to the ED with worsening SOB since her hospitalization @ [facility] on 12/24 for a CABG. #Acute hypoxic Respiratory Failure 2/2 b/l pleural effusions - improving. afebrile. based on echo and CT findings unclear if effusions are 2/2 dCHF vs sepsis 2/2 LLL PNA vs post op inflammatory changes from recent CABG. -CXR w/ consolitation, pleural effusion -s/p Vanc/zosyn in ED -Leukocytosis downtrending 14.6...12.9...11.9...10.7 -ID consulted: Dr. Adams -bcx, legionella, MRSA screen neg -patient recently hospitalized for 5 days. C/w Zosyn d3, will switch to Augmentin micah to finish total 7 days -duonebs PRN -Cardiology outpt started prior to admission Lasix 40mg daily @ home. s/p 20mg BID IV x1 -pulm consulted, Rosanna, for noted pleural effusion. -cardio consulted, Ariana -ESR 73 -D-Dimer is elevated -CTA reviewed above, neg for PE, mod b/l effusions L>R -pleural effusion: med management for now, pt started on IV lasix 40 qd, cardio /pulm recs appreciated #CAD s/p CABG (12/24) -c/w Plavix, Toprol, imdur, norvasc, Lipitor 80 -patient allergic to ASA -trop downtrend .07....06....06 -echo reviewed above, nl EF, elevated RVP #Anemia - hgb 7.8 likely from recent CABG. -hgb 9.8...9.4...9.6 -Transfuse PRN to keep Hgb >8, s/p 1 unit pRBC total so far -monitor H/H #L breast pain w/ small 2x2cm L axial lymph node - soft nontender non- erythematous mobile. breast pain and lymph node likely 2/2 post op pain 2/2 recent CABG. no signs of inx. -pt will need to f/u outpt in 1 mo for monitoring of lymph node. -last mammo in 04/14 nl -pain ctl tylenol/tramadol #L adrenal gland enlargement - noted on CT -will f/u as outpt #vaginal yeast infx - itchy white discharge diflucan 150mg x1 on 01/07/19. will redose if no improvement after 72 hr #HTN -imdur 30mg -norvasc 5mg -toprol 100mg #Asthma -not in exacerbation -Duoneb PRN -cont home Singulair 10mg Daily #DM -A1c 7.0 -hold home meds -BGM -uses insulin pump at home, basal rate (~ 45U/d) -c/w levemir 30U HS and increase prn -ISS #FEN -no IV fluids needed -monitor lytes -diabetic diet #ppx -SQH -home protonix 40 qd Dispo tele Visit type - Emergency Visit Emergency Visit: Yes ED Registration Date: 01/05/19 Care time: The patient presented to the Emergency Department on the above date and was hospitalized for further evaluation of their emergent condition. - New Patient This patient is new to me today: Yes Date on this admission: 01/08/19 - Critical Care Critical Care patient: No
[2019-01-08 08:11] LABS: BLOOD UREA NITROGEN 26.2 mg/dL (7-18); CALCIUM 8.7 mg/dL (8.5-10.1); CREATININE 1.1 mg/dL (0.55-1.3); MAGNESIUM 2.2 mg/dL (1.8-2.4); PHOSPHOROUS 4.3 mg/dL (2.5-4.9); POTASSIUM 3.7 mmol/L (3.5-5.1)
[2019-01-08 08:22] LABS: HEMATOCRIT 28.2 % (32.4-45.2); HEMOGLOBIN 9.6 GM/dL (10.7-15.3); MCH 28.6 pg (25.7-33.7); MCHC 33.9 g/dl (32.0-36.0); MEAN CELL VOLUME 84.2 fl (80-96); MEAN PLT VOLUME 7.9 fl (7.5-11.1); PLATELET COUNT 397 K/MM3 (134-434); RBC 3.35 M/mm3 (3.60-5.2); RDW 14.3 % (11.6-15.6); WHITE BLOOD COUNT 10.7 K/mm3 (4.0-10.0)
[2019-01-08] MEDS ORDERED: PIPERACILLIN/TAZOBACTAM 3.375 GM VIAL IVPB ONE ×4 (09:27→21:54)
[2019-01-08] MEDS ORDERED: DEXTROSE 5%-WATER - 50 ML IVPB ONE ×4 (09:27→21:54)
[2019-01-08] MEDS: amLODIPine BESYLATE 5 MG TABLET (FP) PO SCH (09:33)
[2019-01-08] MEDS: ISOSORBIDE MONONITRATE 30 MG TAB.SR.24H (FP) PO SCH (09:33)
[2019-01-08] MEDS: PANTOPRAZOLE 40 MG TABLET (FP) PO SCH (09:33)
[2019-01-08] MEDS: CLOPIDOGREL BISULFATE 75 MG TABLET (FP) PO SCH (09:33)
[2019-01-08] MEDS: FUROSEMIDE 40 MG/4 ML INJECTABLE VIAL IVPUSH SCH (09:33)
--- NOTE | 2019-01-08 14:17 | PN ---
Progress Note (short form) - Note Progress Note: feels much improved ambulating in the halls Vital Signs Period Temp Pulse Resp BP Sys/Leiv Pulse Ox Last 24 Hr 97.9 F-99.0 F 65-72 20-22 153-164/53-70 92-98 cor-rrr lungs decreased bs at bases abd soft,nt ext no edema sternal wound dry, no drainage CBC, BMP 01/08/19 06:54 01/08/19 06:54 Microbiology 01/05/19 13:00 Blood - Peripheral Venous Blood Culture - Preliminary NO GROWTH OBTAINED AFTER 72 HOURS, INCUBATION TO CONTINUE FOR 2 DAYS. 01/05/19 13:00 Blood - Peripheral Venous Blood Culture - Preliminary NO GROWTH OBTAINED AFTER 72 HOURS, INCUBATION TO CONTINUE FOR 2 DAYS. 01/06/19 03:40 Nares - Mrsa Screen - Right MRSA Screen - Final NO MRSA ISOLATED 01/06/19 03:40 Nares - Mrsa Screen - Left MRSA Screen - Final NO MRSA ISOLATED 01/06/19 04:00 Urine For Antigen Detection Legionella Antigen - Final 01/06/19 04:00 Urine For Antigen Detection Streptococcus pneumoniae Antigen (M - Final chest CTA- no PE, bilateral effusions with atelectasis, cannot r/o effusion a/p bilateral effusions with atelectasis cannot r/o pneumonia, leukocytosis improving continue zosyn day #3, can switch to po augmentin to finish total 7 days continue diuresis per cardiology cad- s/p cabg please call back if needed Problem List - Problems (1) HCAP (healthcare-associated pneumonia) Code(s): J18.9 - PNEUMONIA, UNSPECIFIED ORGANISM (2) Anemia Code(s): D64.9 - ANEMIA, UNSPECIFIED (3) S/P CABG x 3 Code(s): Z95.1 - PRESENCE OF AORTOCORONARY BYPASS GRAFT
--- NOTE | 2019-01-08 15:05 | PN ---
Progress Note (short form) - Note Progress Note: PULMONARY AWAKE/ALERT FAMILY IN ATTENDANCE SUBJECTIVE IMPROVEMENT VSS/AFEBRILE GENERAL: NAD HEENT: sclera anicteric, conjunctiva clear NECK: supple without lymphadenopathy, JVD, or masses. Chest: incision post CABG, clean/dry LUNGS: Bibasilar rhonchi, no wheeze HEART: RRR, normal S1 and S2 without murmur, rub or gallop. ABDOMEN: Soft, NTND, normoactive bowel sounds, no guarding, no rebound, no masses. LOWER EXTREMITIES: 2+ pulses, warm, well-perfused. No peripheral edema. NEUROLOGICAL: Non-focal LABS/MEDS/NOTES/IMAGES REVIEWED IMP BILATERAL PLEURAL EFFUSIONS POST CABG PE RULED OUT ? PNA ASHD S/P CABG ASTHMA DM HTN ANEMIA PLAN O2 INHALED BRONCHODILATORS ABX PER ID DIURETICS WILL FOLLOW Richard WEIR MD
--- NOTE | 2019-01-08 15:27 | PN ---
Progress Note (short form) - Note Progress Note: s: no cp palps dizzy; sob improving o: Vital Signs Period Temp Pulse Resp BP Sys/Levi Pulse Ox Last 24 Hr 97.9 F-99.0 F 65-72 20-22 153-164/53-70 92-98 nad no jvd rrr s1s2 no mrg dec bs, nl eff aao3 no le edema, no c/c abd nt nd pos bs no jaundice diaphoresis Current Medications Generic Name Dose Route Start Last Admin Trade Name Freq PRN Reason Stop Dose Admin Acetaminophen 1,000 mg 01/07/19 23:30 Tylenol - PO Q6H PRN PAIN LEVEL 6-10 Albuterol/Ipratropium 1 amp 01/07/19 23:30 01/08/19 00:52 Duoneb - NEB 1 amp Q4H PRN Administration SHORTNESS OF BREATH Alprazolam 0.5 mg 01/07/19 23:30 Xanax - PO HS PRN ANXIETY Amlodipine Besylate 5 mg 01/08/19 10:00 01/08/19 09:33 Norvasc - PO 5 mg DAILY JAMEL Administration Amoxicillin/Clavulanate Potassium 1 tab 01/09/19 08:00 Augmentin - 875mg Tablet PO 01/13/19 07:59 BID@0800,1730 [facility] Atorvastatin Calcium 80 mg 01/08/19 22:00 Lipitor - PO HS JAMEL Clopidogrel Bisulfate 75 mg 01/08/19 10:00 01/08/19 09:33 Plavix - PO 75 mg DAILY JAMEL Administration Furosemide 40 mg 01/08/19 10:00 01/08/19 09:33 Lasix Injection - IVPUSH 40 mg DAILY JAMEL Administration Heparin Sodium (Porcine) 5,000 unit 01/08/19 06:00 01/08/19 14:50 Heparin - SQ 5,000 unit TID JAMEL Administration Piperacillin Sod/Tazobactam 50 mls @ 100 mls/hr 01/08/19 02:00 01/08/19 09:33 Sod 3.375 gm/ Dextrose IVPB 01/08/19 23:00 100 mls/hr Q8H-IV JAMEL Administration Protocol Insulin Aspart 1 vial 01/08/19 07:00 01/08/19 12:00 Novolog Vial Sliding Scale - SQ 4 units TIDAC JAMEL Administration Protocol Insulin Detemir 30 units 01/08/19 07:00 01/08/19 06:03 Levemir Vial SQ 30 units AM JAMEL Administration Isosorbide Mononitrate 30 mg 01/08/19 10:00 01/08/19 09:33 Imdur - PO 30 mg DAILY JAMEL Administration Metoprolol Succinate 100 mg 01/08/19 10:00 01/08/19 09:33 Toprol Xl - PO 100 mg DAILY JAMEL Administration Montelukast Sodium 10 mg 01/08/19 22:00 Singulair - PO HS JAMEL Pantoprazole Sodium 40 mg 01/08/19 10:00 01/08/19 09:33 Protonix - PO 40 mg DAILY JAMEL Administration Tramadol HCl 50 mg 01/07/19 23:30 Ultram - PO Q8H PRN PAIN LEVEL 7 - 10 CBC, BMP 01/08/19 06:54 01/08/19 06:54 echo 12/2018: tds; nl lv, rv tds, mild tr, rvsp 40-50 echo 08/2015: nl lv/rv, no sig valve path cxr: left lower lobe consolidation and eff ecg: sr nl intervals no ischemic changes a/p: 68 f hx cad s/p elective cabg, no [place] (was just dc about a week ago from [facility]), asthma, hld, htn, dm, here with sob. sob, pna: -presentation c/w pna, continue abx, supplemental o2 -ct showing effs, started iv lasix 01/07, monitor daily chem7, resp status cad: -s/p recent cabg -no signs acs -trop borderline elevated with flat trend and nl ck, likely not acs -cont home toprol 25, atorva 40, dilt 240 qd, clonidine 0.1 qwk patch, chlorthalidone 25, aldactone 12.5, fenofibrate 145, benicar. -on plavix anemia: -likely related to recent surgery, improved now hld: -cont statin htn: -cont home meds: toprol 25, dilt 240 qd, clonidine 0.1 qwk patch, chlorthalidone 25, aldactone 12.5, benicar.
--- NOTE | 2019-01-08 17:41 | PN ---
Teaching Attending Note Name of Resident: Sukhdeep Levi ATTENDING PHYSICIAN STATEMENT I saw and evaluated the patient. I reviewed the resident's note and discussed the case with the resident. I agree with the resident's findings and plan as documented. SUBJECTIVE: No fever or chills. No LIND. No vaginal discharge or itching in genital area OBJECTIVE: NAD CV: RRR Lungs: decreased breath sounds at bases. Ext: 1+ pitting edema on legs . No erythema ASSESSMENT AND PLAN: 68 y/o lady with h/o CAD s/p CABG 12/24/18, HTN, HLP, DM who presented with worsening SOB and hypoxia. 1- SOB and hypoxia, due to probable PNA and b/l pleural effusions. - switched to augmentin ofr 4 more days - cont lasix - no effusion drainage per pulm - repeat ESR tomorrow 2- Sepsis 2/2 probable b/l PNA - cont zosyn - blood cx NGTD 3- Acute diastolic heart failure exacerbation: - cont lasix for now. monitor weight and I&O 4- DM: off insulin pump now. - cont with levemir 30 levemir - cont SSI 5- Acute blood loss anemia s/p CABG: received 1 unit of RBC. stable HB 6- CAD, s/p CABG: cont plavix. ASA on hold cont torpol, imdur, norvasc, and statin 7- L axillary lymph node enlargement: f/u as out pt . 8- L adrenal gland enlargement on CT: f/u as out pt DVT px : heparin Sq HLOC
[2019-01-08] MEDS ORDERED: MELATONIN 5 MG TABLETS PO ONE (21:44)
[2019-01-08] MEDS: ATORVASTATIN CA 80 MG TABLET (FP) PO SCH (22:16)
[2019-01-08] MEDS: MONTELUKAST NA 10 MG TABLET PO SCH (22:16)
[2019-01-08] MEDS ORDERED: INSULIN (NOVOLOG) ASPART 100 UNITS/ML 10ML VIAL SQ ONE (23:07)
[2019-01-09] MEDS: HEPARIN NA (PORCINE) 5,000 UNITS/ML 1ML VIAL SQ SCH ×3 (05:33→21:08)
[2019-01-09] MEDS: INSULIN SLIDING SCALE (NOVOLOG) 1 VIAL SQ SCH ×3 (06:10→17:33)
[2019-01-09] MEDS: INSULIN (LEVEMIR) 100 UNITS/ML UNITS SQ SCH (06:10)
[2019-01-09] MEDS: AMOX TR/POT CLAV 875MG/125MG TABLETS (FP) PO SCH ×2 (08:25→17:30)
[2019-01-09 08:44] LABS: BLOOD UREA NITROGEN 25.8 mg/dL (7-18); CALCIUM 9.1 mg/dL (8.5-10.1); CREATININE 1.1 mg/dL (0.55-1.3); MAGNESIUM 2.3 mg/dL (1.8-2.4); PHOSPHOROUS 4.5 mg/dL (2.5-4.9); POTASSIUM 3.8 mmol/L (3.5-5.1)
[2019-01-09 08:53] LABS: HEMATOCRIT 28.4 % (32.4-45.2); HEMOGLOBIN 9.7 GM/dL (10.7-15.3); MCH 28.7 pg (25.7-33.7); MCHC 34.1 g/dl (32.0-36.0); MEAN CELL VOLUME 84.4 fl (80-96); MEAN PLT VOLUME 7.7 fl (7.5-11.1); PLATELET COUNT 372 K/MM3 (134-434); RBC 3.36 M/mm3 (3.60-5.2); RDW 13.9 % (11.6-15.6); WHITE BLOOD COUNT 9.2 K/mm3 (4.0-10.0)
[2019-01-09] MEDS ORDERED: PT OWN MED DRAWER 7, Y5N ONE (09:56)
[2019-01-09] MEDS: ISOSORBIDE MONONITRATE 30 MG TAB.SR.24H (FP) PO SCH (09:58)
[2019-01-09] MEDS: amLODIPine BESYLATE 5 MG TABLET (FP) PO SCH (09:59)
[2019-01-09] MEDS: PANTOPRAZOLE 40 MG TABLET (FP) PO SCH (09:59)
[2019-01-09] MEDS: FUROSEMIDE 40 MG/4 ML INJECTABLE VIAL IVPUSH SCH (09:59)
[2019-01-09] MEDS: CLOPIDOGREL BISULFATE 75 MG TABLET (FP) PO SCH (09:59)
[2019-01-09 10:45] LABS: ERYTHROCYTE SEDIMENTATION RATE 68 mm/hr (0-30)
[2019-01-09] MEDS: ACETAMINOPHEN 500 MG TABLET (FP) PO PRN (11:48)
--- NOTE | 2019-01-09 12:15 | PN ---
Progress Note (short form) - Note Progress Note: s: no cp palps dizzy; sob improving o: Vital Signs Period Temp Pulse Resp BP Sys/Levi Pulse Ox Last 24 Hr 98.1 F-98.9 F 61-76 20-20 118-163/52-86 97 nad no jvd rrr s1s2 no mrg dec bs, nl eff aao3 no le edema, no c/c abd nt nd pos bs no jaundice diaphoresis Current Medications Acetaminophen (Tylenol -) 1,000 mg PO Q6H PRN PRN Reason: PAIN LEVEL 6-10 Last Admin: 01/09/19 11:48 Dose: 1,000 mg Albuterol/Ipratropium (Duoneb -) 1 amp NEB Q4H PRN PRN Reason: SHORTNESS OF BREATH Last Admin: 01/08/19 21:20 Dose: 1 amp Alprazolam (Xanax -) 0.5 mg PO HS PRN PRN Reason: ANXIETY Amlodipine Besylate (Norvasc -) 5 mg PO DAILY [facility] Last Admin: 01/09/19 09:59 Dose: 5 mg Amoxicillin/Clavulanate Potassium (Augmentin - 875mg Tablet) 1 tab PO BID@0800, 1730 [facility] Stop: 01/13/19 07:59 Last Admin: 01/09/19 08:25 Dose: 1 tab Atorvastatin Calcium (Lipitor -) 80 mg PO HS [facility] Last Admin: 01/08/19 22:16 Dose: 80 mg Clopidogrel Bisulfate (Plavix -) 75 mg PO DAILY [facility] Last Admin: 01/09/19 09:59 Dose: 75 mg Furosemide (Lasix Injection -) 40 mg IVPUSH DAILY [facility] Last Admin: 01/09/19 09:59 Dose: 40 mg Heparin Sodium (Porcine) (Heparin -) 5,000 unit SQ TID [facility] Last Admin: 01/09/19 05:33 Dose: 5,000 unit Insulin Aspart (Novolog Vial Sliding Scale -) 1 vial SQ TIDAC [facility]; Protocol Last Admin: 01/09/19 11:51 Dose: 4 units Insulin Detemir (Levemir Vial) 30 units SQ AM [facility] Last Admin: 01/09/19 06:10 Dose: 30 units Isosorbide Mononitrate (Imdur -) 30 mg PO DAILY [facility] Last Admin: 01/09/19 09:58 Dose: 30 mg Metoprolol Succinate (Toprol Xl -) 100 mg PO DAILY [facility] Last Admin: 01/09/19 09:59 Dose: 100 mg Montelukast Sodium (Singulair -) 10 mg PO HS [facility] Last Admin: 01/08/19 22:16 Dose: 10 mg Pantoprazole Sodium (Protonix -) 40 mg PO DAILY [facility] Last Admin: 01/09/19 09:59 Dose: 40 mg Tramadol HCl (Ultram -) 50 mg PO Q8H PRN PRN Reason: PAIN LEVEL 7 - 10 echo 12/2018: tds; nl lv, rv tds, mild tr, rvsp 40-50 echo 08/2015: nl lv/rv, no sig valve path cxr: left lower lobe consolidation and eff ecg: sr nl intervals no ischemic changes a/p: 68 f hx cad s/p elective cabg, no [place] (was just dc about a week ago from [facility]), asthma, hld, htn, dm, here with sob. sob, pna: -presentation c/w pna, continue abx, supplemental o2 -ct showing effs, started iv lasix 01/07 - resp status improving, cont IV lasix - monitor daily chem7, resp status cad: -s/p recent cabg -no signs acs -trop borderline elevated with flat trend and nl ck, likely not acs -cont home toprol 25, atorva 40, dilt 240 qd, clonidine 0.1 qwk patch, chlorthalidone 25, aldactone 12.5, fenofibrate 145, benicar. -on plavix anemia: -likely related to recent surgery, improved now hld: -cont statin htn: -cont home meds: toprol 25, dilt 240 qd, clonidine 0.1 qwk patch, chlorthalidone 25, aldactone 12.5, benicar.
--- NOTE | 2019-01-09 14:06 | PN ---
Teaching Attending Note Name of Resident: Misael Parks ATTENDING PHYSICIAN STATEMENT I saw and evaluated the patient. I reviewed the resident's note and discussed the case with the resident. I agree with the resident's findings and plan as documented. SUBJECTIVE: No fever or chills , no LIND , no SOB at rest with O2 on. No vaginal itching OBJECTIVE: NAD CV: RRR Lungs: decreased breath sounds at bases. good air entry Ext: 1+ pitting edema on legs. No erythema ASSESSMENT AND PLAN: 68 y/o lady with h/o CAD s/p CABG 12/24/18, HTN, HLP, DM who presented with worsening SOB and hypoxia. 1- SOB and hypoxia, due to probable PNA and b/l pleural effusions. - Cont augmentin for 3 more days - cont lasix IV per card - ESR imroved - pre-post Ambulatory pulse ox 2- Sepsis 2/2 probable b/l PNA : resolved - Augmantin 3- Acute diastolic heart failure exacerbation: - cont lasix for now. monitor weight and I&O 4- DM: off insulin pump now. - increase levemir to 35 units in am - cont SSI 5- Acute blood loss anemia s/p CABG: received 1 unit of RBC. stable HB 6- CAD, s/p CABG: cont plavix. ASA on hold cont torpol, imdur, norvasc, and statin 7- L axillary lymph node enlargement: f/u as out pt . 8- L adrenal gland enlargement on CT: f/u as out pt DVT px: heparin Sq HLOC
--- NOTE | 2019-01-09 15:39 | PN ---
Physical Exam: SUBJECTIVE: Patient seen and examined at bedside. No overnight events. Reports improved breathing, L breast pain unchanged, yeast infection resolving. OBJECTIVE: Vital Signs Period Temp Pulse Resp BP Sys/Levi Pulse Ox Last 24 Hr 98.1 F-98.9 F 61-76 20-20 118-163/52-86 95-97 GENERAL: AOX3 NAD HEENT: NCAT, PERRRLA, EOMI, sclera anicteric, conjunctiva clear. oropharynx clear without exudates. MMM NECK: supple without lymphadenopathy, JVD, or masses. Chest: incision post CABG, clean/dry, TTP L breast/chest area, +2x2cm soft nontender non-erythematous mobile L axial lymph node LUNGS: decreased breath sounds on the L, no wheezing, crackles auscultated HEART: RRR, normal S1 and S2 without murmur, rub or gallop. ABDOMEN: Soft, NTND, normoactive bowel sounds, no guarding, no rebound, no masses. LOWER EXTREMITIES: 2+ pulses, warm, well-perfused. No peripheral edema. NEUROLOGICAL: Cranial nerves II-XII intact. Normal speech. Laboratory Results - last 24 hr 01/05/19 01/08/19 01/08/19 14:30 17:33 22:20 WBC RBC Hgb Hct MCV MCH MCHC RDW Plt Count MPV ESR Sodium Potassium Chloride Carbon Dioxide Anion Gap BUN Creatinine Est GFR (CKD-EPI)AfAm Est GFR (CKD-EPI)NonAf POC Glucometer 212 306 Random Glucose Calcium Phosphorus Magnesium Blood Type A POSITIVE Antibody Screen Negative Crossmatch See Detail 01/09/19 01/09/19 01/09/19 05:29 07:25 07:35 WBC 9.2 RBC 3.36 L Hgb 9.7 L Hct 28.4 L MCV 84.4 MCH 28.7 MCHC 34.1 RDW 13.9 Plt Count 372 MPV 7.7 ESR 68 H Sodium 142 Potassium 3.8 Chloride 107 Carbon Dioxide 30 Anion Gap 6 L BUN 25.8 H Creatinine 1.1 Est GFR (CKD-EPI)AfAm 59.32 Est GFR (CKD-EPI)NonAf 51.18 POC Glucometer 207 Random Glucose 207 H Calcium 9.1 Phosphorus 4.5 Magnesium 2.3 Blood Type Antibody Screen Crossmatch 01/09/19 11:43 WBC RBC Hgb Hct MCV MCH MCHC RDW Plt Count MPV ESR Sodium Potassium Chloride Carbon Dioxide Anion Gap BUN Creatinine Est GFR (CKD-EPI)AfAm Est GFR (CKD-EPI)NonAf POC Glucometer 236 Random Glucose Calcium Phosphorus Magnesium Blood Type Antibody Screen Crossmatch Active Medications Generic Name Dose Route Start Last Admin Trade Name Freq PRN Reason Stop Dose Admin Acetaminophen 1,000 mg 01/07/19 23:30 01/09/19 11:48 Tylenol - PO 1,000 mg Q6H PRN Administration PAIN LEVEL 6-10 Albuterol/Ipratropium 1 amp 01/07/19 23:30 01/08/19 21:20 Duoneb - NEB 1 amp Q4H PRN Administration SHORTNESS OF BREATH Alprazolam 0.5 mg 01/07/19 23:30 Xanax - PO HS PRN ANXIETY Amlodipine Besylate 5 mg 01/08/19 10:00 01/09/19 09:59 Norvasc - PO 5 mg DAILY JAMEL Administration Amoxicillin/Clavulanate Potassium 1 tab 01/09/19 08:00 01/09/19 08:25 Augmentin - 875mg Tablet PO 01/13/19 07:59 1 tab BID@0800,1730 JAMEL Administration Atorvastatin Calcium 80 mg 01/08/19 22:00 01/08/19 22:16 Lipitor - PO 80 mg HS JAMEL Administration Clopidogrel Bisulfate 75 mg 01/08/19 10:00 01/09/19 09:59 Plavix - PO 75 mg DAILY JAMEL Administration Furosemide 40 mg 01/08/19 10:00 01/09/19 09:59 Lasix Injection - IVPUSH 40 mg DAILY JAMEL Administration Heparin Sodium (Porcine) 5,000 unit 01/08/19 06:00 01/09/19 13:36 Heparin - SQ 5,000 unit TID JAMEL Administration Insulin Aspart 1 vial 01/08/19 07:00 01/09/19 11:51 Novolog Vial Sliding Scale - SQ 4 units TIDAC [facility] Administration Protocol Insulin Detemir 35 units 01/09/19 14:05 Levemir Vial SQ AM JAMEL Isosorbide Mononitrate 30 mg 01/08/19 10:00 01/09/19 09:58 Imdur - PO 30 mg DAILY JAMEL Administration Metoprolol Succinate 100 mg 01/08/19 10:00 01/09/19 09:59 Toprol Xl - PO 100 mg DAILY JAMEL Administration Montelukast Sodium 10 mg 01/08/19 22:00 01/08/19 22:16 Singulair - PO 10 mg HS JAMEL Administration Pantoprazole Sodium 40 mg 01/08/19 10:00 01/09/19 09:59 Protonix - PO 40 mg DAILY JAMEL Administration Tramadol HCl 50 mg 01/07/19 23:30 Ultram - PO Q8H PRN PAIN LEVEL 7 - 10 ASSESSMENT/PLAN: 68 yo F with a PMHx of HTN, DM, CAD (s/p recent CABG 12/24), Asthma, presented to the ED with worsening SOB since her hospitalization @ [facility] on 12/24 for a CABG. #Acute hypoxic Respiratory Failure 2/2 b/l pleural effusions - improving. afebrile. based on echo and CT findings unclear if effusions are 2/2 dCHF vs sepsis 2/2 LLL PNA vs post op inflammatory changes from recent CABG. -CXR w/ consolidation, pleural effusion -s/p Vanc/zosyn in ED -Leukocytosis resolved -ID consulted: Dr. Adams -bcx, legionella, MRSA screen neg -patient recently hospitalized for 5 days. -Day 11/01 total ABx, converted to Augmentin today -duonebs PRN -cont IV Lasix as per cardiology -pulm consulted, Rosanna, for noted pleural effusion. -cardio consulted, Ariana -ESR 73 -D-Dimer is elevated -CTA reviewed above, neg for PE, mod b/l effusions L>R -had pre-/post- evaluation, desats to 88, qualifies for home O2 upon discharge #CAD s/p CABG (12/24) -c/w Plavix, Toprol, imdur, norvasc, Lipitor 80 -patient allergic to ASA -troponins downtrended -echo reviewed above, nl EF, elevated RVP #Anemia - hgb 7.8 likely from recent CABG. -hgb 9.8...9.4...9.6 -Transfuse PRN to keep Hgb >8, s/p 1 unit pRBC total so far -monitor H/H #L breast pain w/ small 2x2cm L axial lymph node - soft nontender non- erythematous mobile. breast pain and lymph node likely 2/2 post op pain 2/2 recent CABG. no signs of inx. -pt will need to f/u outpt in 1 mo for monitoring of lymph node. -last mammo in 04/14 nl -pain ctl tylenol/tramadol #L adrenal gland enlargement - noted on CT -will f/u as outpt #vaginal yeast infx - itchy white discharge diflucan 150mg x1 on 01/07/19. will redose if no improvement after 72 hr #HTN -imdur 30mg -norvasc 5mg -toprol 100mg #Asthma -not in exacerbation -Duoneb PRN -cont home Singulair 10mg Daily #DM -A1c 7.0 -hold home meds -BGM -uses insulin pump at home, basal rate (~ 45U/d) -c/w levemir 30U HS and increase prn -ISS #FEN -no IV fluids needed -monitor lytes -diabetic diet #ppx -SQH -home protonix 40 qd Dispo tele Visit type - Emergency Visit Emergency Visit: No - New Patient This patient is new to me today: Yes Date on this admission: 01/09/19 - Critical Care Critical Care patient: No
[2019-01-09] MEDS: ALBUTEROL SO4 2.5/IPRATROPIUM 0.5 INH SOL 3 ML VIAL.NEB. NEB PRN (20:05)
[2019-01-09] MEDS: MONTELUKAST NA 10 MG TABLET PO SCH (21:09)
[2019-01-09] MEDS: ATORVASTATIN CA 80 MG TABLET (FP) PO SCH (21:09)
[2019-01-09] MEDS: ALPRAZolam 0.25 MG TABLET PO PRN (21:14)
[2019-01-10] MEDS ORDERED: amLODIPine BESYLATE 5 MG TABLET (FP) PO ONE (00:15)
[2019-01-10] MEDS ORDERED: ENALAPRIL MALEATE 10 MG TABLET (FP) PO ONE (03:17)
[2019-01-10] MEDS: HEPARIN NA (PORCINE) 5,000 UNITS/ML 1ML VIAL SQ SCH ×3 (06:09→21:58)
[2019-01-10] MEDS: INSULIN SLIDING SCALE (NOVOLOG) 1 VIAL SQ SCH ×3 (06:09→17:26)
[2019-01-10] MEDS: INSULIN (LEVEMIR) 100 UNITS/ML UNITS SQ SCH (06:11)
[2019-01-10 08:13] LABS: BASO % 1.1 % (0-2.0); EOS % 1.7 % (0-4.5); HEMATOCRIT 29.7 % (32.4-45.2); HEMOGLOBIN 9.9 GM/dL (10.7-15.3); MCH 27.9 pg (25.7-33.7); MCHC 33.2 g/dl (32.0-36.0); MEAN CELL VOLUME 84.2 fl (80-96); MEAN PLT VOLUME 7.8 fl (7.5-11.1); MONO % 6.1 % (3.8-10.2); NEUT % 74.1 % (42.8-82.8); RBC 3.53 M/mm3 (3.60-5.2); RDW 14.2 % (11.6-15.6); WHITE BLOOD COUNT 9.9 K/mm3 (4.0-10.0)
[2019-01-10] MEDS: AMOX TR/POT CLAV 875MG/125MG TABLETS (FP) PO SCH ×2 (08:27→17:43)
[2019-01-10 08:30] LABS: BLOOD UREA NITROGEN 29.2 mg/dL (7-18); CALCIUM 9.2 mg/dL (8.5-10.1); MAGNESIUM 2.3 mg/dL (1.8-2.4); PHOSPHOROUS 4.5 mg/dL (2.5-4.9); POTASSIUM 3.9 mmol/L (3.5-5.1)
[2019-01-10 09:03] LABS: PLATELET COUNT 388 K/MM3 (134-434)
[2019-01-10] MEDS: ISOSORBIDE MONONITRATE 30 MG TAB.SR.24H (FP) PO SCH (10:29)
[2019-01-10] MEDS: FUROSEMIDE 40 MG/4 ML INJECTABLE VIAL IVPUSH SCH (10:29)
[2019-01-10] MEDS: amLODIPine BESYLATE 5 MG TABLET (FP) PO SCH (10:29)
[2019-01-10] MEDS: CLOPIDOGREL BISULFATE 75 MG TABLET (FP) PO SCH (10:29)
[2019-01-10] MEDS: PANTOPRAZOLE 40 MG TABLET (FP) PO SCH (10:29)
--- NOTE | 2019-01-10 11:18 | PN ---
Progress Note (short form) - Note Progress Note: s: no cp palps dizzy, improving SOB overnight. episode high BP overnight improved with amlodipine, enalapril o: Vital Signs Period Temp Pulse Resp BP Sys/Levi Pulse Ox Last 24 Hr 97.9 F-98.5 F 64-86 18-20 143-192/65-85 95-95 nad no jvd rrr s1s2 no mrg dec bs, nl eff aao3 no le edema, no c/c abd nt nd pos bs no jaundice diaphoresis Current Medications Acetaminophen (Tylenol -) 1,000 mg PO Q6H PRN PRN Reason: PAIN LEVEL 6-10 Last Admin: 01/09/19 11:48 Dose: 1,000 mg Albuterol/Ipratropium (Duoneb -) 1 amp NEB Q4H PRN PRN Reason: SHORTNESS OF BREATH Last Admin: 01/09/19 20:05 Dose: 1 amp Alprazolam (Xanax -) 0.5 mg PO HS PRN PRN Reason: ANXIETY Last Admin: 01/09/19 21:14 Dose: 0.5 mg Amlodipine Besylate (Norvasc -) 10 mg PO DAILY [facility] Amoxicillin/Clavulanate Potassium (Augmentin - 875mg Tablet) 1 tab PO BID@0800, 1730 [facility] Stop: 01/13/19 07:59 Last Admin: 01/10/19 08:27 Dose: 1 tab Atorvastatin Calcium (Lipitor -) 80 mg PO HS [facility] Last Admin: 01/09/19 21:09 Dose: 80 mg Clopidogrel Bisulfate (Plavix -) 75 mg PO DAILY [facility] Last Admin: 01/10/19 10:29 Dose: 75 mg Furosemide (Lasix Injection -) 40 mg IVPUSH DAILY [facility] Last Admin: 01/10/19 10:29 Dose: 40 mg Heparin Sodium (Porcine) (Heparin -) 5,000 unit SQ TID [facility] Last Admin: 01/10/19 06:09 Dose: 5,000 unit Insulin Aspart (Novolog Vial Sliding Scale -) 1 vial SQ TIDAC [facility]; Protocol Last Admin: 01/10/19 06:09 Dose: 4 units Insulin Detemir (Levemir Vial) 35 units SQ AM [facility] Last Admin: 01/10/19 06:11 Dose: 35 units Isosorbide Mononitrate (Imdur -) 30 mg PO DAILY [facility] Last Admin: 01/10/19 10:29 Dose: 30 mg Metoprolol Succinate (Toprol Xl -) 100 mg PO DAILY [facility] Last Admin: 01/10/19 10:29 Dose: 100 mg Montelukast Sodium (Singulair -) 10 mg PO HS [facility] Last Admin: 01/09/19 21:09 Dose: 10 mg Pantoprazole Sodium (Protonix -) 40 mg PO DAILY [facility] Last Admin: 01/10/19 10:29 Dose: 40 mg Tramadol HCl (Ultram -) 50 mg PO Q8H PRN PRN Reason: PAIN LEVEL 7 - 10 echo 12/2018: tds; nl lv, rv tds, mild tr, rvsp 40-50 echo 08/2015: nl lv/rv, no sig valve path cxr: left lower lobe consolidation and eff ecg: sr nl intervals no ischemic changes a/p: 68 f hx cad s/p elective cabg, no [place] (was just dc about a week ago from [facility]), asthma, hld, htn, dm, here with sob. sob, pna: -presentation c/w pna, continue abx, supplemental o2 -ct showing effs, started iv lasix 01/07 - resp status improving, cont IV lasix - monitor daily chem7, resp status cad: -s/p recent cabg -no signs acs -trop borderline elevated with flat trend and nl ck, likely not acs -cont home toprol 25, atorva 40, dilt 240 qd, clonidine 0.1 qwk patch, chlorthalidone 25, aldactone 12.5, fenofibrate 145, benicar. -on plavix anemia: -likely related to recent surgery, improved now hld: -cont statin htn: - cont imdur, toprol, amlodipine - inc amlodipine to 10 mg daily
--- NOTE | 2019-01-10 13:05 | PN ---
Progress Note (short form) - Note Progress Note: Subjective: No fever or chills. BP was high last night she was given enalapril and norvasc. Objective: Vital Signs: Last Vital Signs Temp Pulse Resp BP Pulse Ox 97.9 F 73 20 161/57 L 95 01/10/19 09:15 01/10/19 09:15 01/10/19 09:15 01/10/19 09:15 01/09/19 21:00 Laboratory Results - last 24 hr 01/09/19 01/09/19 01/10/19 16:42 21:11 05:52 WBC RBC Hgb Hct MCV MCH MCHC RDW Plt Count MPV Absolute Neuts (auto) Neutrophils % Lymphocytes % Monocytes % Eosinophils % Basophils % Nucleated RBC % Sodium Potassium Chloride Carbon Dioxide Anion Gap BUN Creatinine Est GFR (CKD-EPI)AfAm Est GFR (CKD-EPI)NonAf POC Glucometer 243 265 218 Random Glucose Calcium Phosphorus Magnesium 01/10/19 01/10/19 01/10/19 07:27 07:27 11:17 WBC 9.9 RBC 3.53 L Hgb 9.9 L Hct 29.7 L MCV 84.2 MCH 27.9 MCHC 33.2 RDW 14.2 Plt Count 388 MPV 7.8 Absolute Neuts (auto) 7.4 Neutrophils % 74.1 Lymphocytes % 17.0 Monocytes % 6.1 Eosinophils % 1.7 D Basophils % 1.1 Nucleated RBC % 0 Sodium 140 Potassium 3.9 Chloride 105 Carbon Dioxide 28 Anion Gap 7 L BUN 29.2 H Creatinine 1.0 Est GFR (CKD-EPI)AfAm 66.57 Est GFR (CKD-EPI)NonAf 57.44 POC Glucometer 267 Random Glucose 209 H Calcium 9.2 Phosphorus 4.5 Magnesium 2.3 Physical Exam: NAD CV: RRR Lungs: decreased breath sounds at bases, L > R . good air entry Ext: No edema or erythema on LE ASSESSMENT AND PLAN: 68 y/o lady with h/o CAD s/p CABG 12/24/18, HTN, HLP, DM who presented with worsening SOB and hypoxia. 1- SOB and hypoxia, due to probable PNA and b/l pleural effusions. - Cont augmentin for 2 more days - cont lasix IV per card - pre-post Ambulatory pulse ox: need O2 L with ambulation only 2- Sepsis 2/2 probable b/l PNA: resolved - Augmantin 3- Acute diastolic heart failure exacerbation: - cont lasix for now. monitor weight and I&O - cont BB 4- DM: off insulin pump now. - increase levemir to 40 units in am - cont SSI 5- AHTn urgency: Bp improved. - norvasc increased to 10, cont metorpolol 6- CAD, s/p CABG: cont plavix. ASA on hold cont torpol, imdur, norvasc, and statin. 7- L axillary lymph node enlargement: f/u as out pt . 8- L adrenal gland enlargement on CT: f/u as out pt DVT px: heparin Sq HLOC Visit type - Emergency Visit Emergency Visit: Yes ED Registration Date: 01/05/19 Care time: The patient presented to the Emergency Department on the above date and was hospitalized for further evaluation of their emergent condition. - New Patient This patient is new to me today: No - Critical Care Critical Care patient: No
[2019-01-10] MEDS: ALBUTEROL SO4 2.5/IPRATROPIUM 0.5 INH SOL 3 ML VIAL.NEB. NEB PRN (19:50)
[2019-01-10] MEDS: ATORVASTATIN CA 80 MG TABLET (FP) PO SCH (21:58)
[2019-01-10] MEDS: MONTELUKAST NA 10 MG TABLET PO SCH (21:58)
[2019-01-11] MEDS: HEPARIN NA (PORCINE) 5,000 UNITS/ML 1ML VIAL SQ SCH ×3 (05:50→22:26)
[2019-01-11] MEDS: INSULIN SLIDING SCALE (NOVOLOG) 1 VIAL SQ SCH ×3 (06:15→17:01)
[2019-01-11] MEDS: INSULIN (LEVEMIR) 100 UNITS/ML UNITS SQ SCH (06:15)
[2019-01-11] MEDS: AMOX TR/POT CLAV 875MG/125MG TABLETS (FP) PO SCH ×2 (09:07→17:01)
--- NOTE | 2019-01-11 10:26 | PN ---
Progress Note, Physician Chief Complaint: sob History of Present Illness: feels much better. sob and cough resolved. mild discomfort at sternotomy incision with deep breaths--no more back pain. says she was having severe L back pain at home, worse with inspiration. no leg swelling no palp no cigs - Current Medication List Current Medications: Active Medications Acetaminophen (Tylenol -) 1,000 mg PO Q6H PRN PRN Reason: PAIN LEVEL 6-10 Last Admin: 01/09/19 11:48 Dose: 1,000 mg Albuterol/Ipratropium (Duoneb -) 1 amp NEB Q4H PRN PRN Reason: SHORTNESS OF BREATH Last Admin: 01/10/19 19:50 Dose: 1 amp Alprazolam (Xanax -) 0.5 mg PO HS PRN PRN Reason: ANXIETY Last Admin: 01/09/19 21:14 Dose: 0.5 mg Amlodipine Besylate (Norvasc -) 10 mg PO DAILY [facility] Amoxicillin/Clavulanate Potassium (Augmentin - 875mg Tablet) 1 tab PO BID@0800, 1730 [facility] Stop: 01/13/19 07:59 Last Admin: 01/11/19 09:07 Dose: 1 tab Atorvastatin Calcium (Lipitor -) 80 mg PO HS [facility] Last Admin: 01/10/19 21:58 Dose: 80 mg Clopidogrel Bisulfate (Plavix -) 75 mg PO DAILY [facility] Last Admin: 01/10/19 10:29 Dose: 75 mg Furosemide (Lasix Injection -) 40 mg IVPUSH DAILY [facility] Last Admin: 01/10/19 10:29 Dose: 40 mg Heparin Sodium (Porcine) (Heparin -) 5,000 unit SQ TID [facility] Last Admin: 01/11/19 05:50 Dose: 5,000 unit Insulin Aspart (Novolog Vial Sliding Scale -) 1 vial SQ TIDAC [facility]; Protocol Last Admin: 01/11/19 06:15 Dose: 2 units Insulin Detemir (Levemir Vial) 35 units SQ AM [facility] Last Admin: 01/11/19 06:15 Dose: 35 units Isosorbide Mononitrate (Imdur -) 30 mg PO DAILY [facility] Last Admin: 01/10/19 10:29 Dose: 30 mg Metoprolol Succinate (Toprol Xl -) 100 mg PO DAILY [facility] Last Admin: 01/10/19 10:29 Dose: 100 mg Montelukast Sodium (Singulair -) 10 mg PO HS [facility] Last Admin: 01/10/19 21:58 Dose: 10 mg Pantoprazole Sodium (Protonix -) 40 mg PO DAILY [facility] Last Admin: 01/10/19 10:29 Dose: 40 mg - Objective Vital Signs: Vital Signs Temperature 98.2 F 01/11/19 09:11 Pulse Rate 72 01/11/19 09:11 Respiratory Rate 20 01/11/19 09:11 Blood Pressure 161/59 L 01/11/19 09:11 O2 Sat by Pulse Oximetry (%) 95 01/09/19 21:00 Constitutional: Yes: No Distress, Calm Eyes: No: Sclera Icterus HENT: No: Nasal Congestion Cardiovascular: Yes: Regular Rate and Rhythm, S1, S2, Other (PMI non diplaced). No: JVD, Gallop, Murmur, Rub Respiratory: Yes: CTA Bilaterally, Diminished (L base), Other (no rub). No: Accessory Muscle Use, Rales, Wheezes Gastrointestinal: Yes: Normal Bowel Sounds, Soft. No: Tenderness Musculoskeletal: Yes: Other (No kyphosis) Extremities: No: Cold, Cyanosis Edema: No Integumentary: No: Jaundice Neurological: Yes: Alert, Oriented (x3) Psychiatric: No: Agitated Labs: CBC, BMP 01/10/19 07:27 01/10/19 07:27 INR, PTT INR 1.09 (0.83-1.09) 01/05/19 11:45 Assessment/Plan echo 12/2018: tds; nl lv, rv tds, mild tr, rvsp 40-50 echo 08/2015: nl lv/rv, no sig valve path cxr: left lower lobe consolidation and eff ecg: sr, no ischemic changes a/p: 68 f hx cad s/p elective cabg (was just dc about a week ago from the [facility]) , asthma, hld, htn, dm, here with sob. moderate pleural effusions, ? LLL infiltrate vs compressive ATX, pleuritic back pain -vol overload s/p CT surgery -no PE on CTA (surgery was approx [address] [employer]) -no significant structural heart dz on echo -started iv lasix 40 qd - resp status improving. -no weights. repeat CXR today with slight decr in L effusion size, ongoing vasc redistribution/congestion pattern. increase lasix to 80 iv qd (give first dose today) -ESR 70, ? post-pericardotomy syndrome (with pleuritic back pain at home). check CRP. no pericardial effusion on echo here, ecg unremarkable. -empiric abx coverage per ID, pulm cad: -s/p recent cabg -no signs acs. trop borderline elevated with flat trend and nl ck, likely not acs -cont home toprol 25, atorva 40, dilt 240 qd, clonidine 0.1 qwk patch, chlorthalidone 25, aldactone 12.5, fenofibrate 145, benicar. -on plavix htn: - resistant HTN with severe lability in response to anxiety/stress - bp's here mostly 140s-160s (which is her baseline), at times variable - need med reconciliation with discharge meds from [place] post-cabg - currently receiving imdur, toprol, amlodipine (increased amlodipine to 10 mg daily) - was on clonidine patch, chlorthalidone, aldactone, diltiazem (for many yrs), olmesartan previously--will review records - same meds for now anemia: -likely related to recent surgery, improved now hld: -cont statin
--- NOTE | 2019-01-11 10:29 | PN ---
Progress Note (short form) - Note Progress Note: PULMONARY States breathing better. Still some chest tightness. Nonproductive cough but no fevers or chills. Vital Signs Period Temp Pulse Resp BP Sys/Levi Pulse Ox Last 24 Hr 97.5 F-98.2 F 64-72 20-20 140-161/59-69 Gen: NAD at rest Heart: RRR Lung: scattered basilar rales Abd: soft, nontender Ext: LLE edema CBC, BMP 01/10/19 07:27 01/10/19 07:27 Active Medications Acetaminophen (Tylenol -) 1,000 mg PO Q6H PRN PRN Reason: PAIN LEVEL 6-10 Last Admin: 01/09/19 11:48 Dose: 1,000 mg Albuterol/Ipratropium (Duoneb -) 1 amp NEB Q4H PRN PRN Reason: SHORTNESS OF BREATH Last Admin: 01/10/19 19:50 Dose: 1 amp Alprazolam (Xanax -) 0.5 mg PO HS PRN PRN Reason: ANXIETY Last Admin: 01/09/19 21:14 Dose: 0.5 mg Amlodipine Besylate (Norvasc -) 10 mg PO DAILY [facility] Amoxicillin/Clavulanate Potassium (Augmentin - 875mg Tablet) 1 tab PO BID@0800, 1730 [facility] Stop: 01/13/19 07:59 Last Admin: 01/11/19 09:07 Dose: 1 tab Atorvastatin Calcium (Lipitor -) 80 mg PO HS [facility] Last Admin: 01/10/19 21:58 Dose: 80 mg Clopidogrel Bisulfate (Plavix -) 75 mg PO DAILY [facility] Last Admin: 01/10/19 10:29 Dose: 75 mg Furosemide (Lasix Injection -) 40 mg IVPUSH DAILY [facility] Last Admin: 01/10/19 10:29 Dose: 40 mg Heparin Sodium (Porcine) (Heparin -) 5,000 unit SQ TID [facility] Last Admin: 01/11/19 05:50 Dose: 5,000 unit Insulin Aspart (Novolog Vial Sliding Scale -) 1 vial SQ TIDAC [facility]; Protocol Last Admin: 01/11/19 06:15 Dose: 2 units Insulin Detemir (Levemir Vial) 35 units SQ AM [facility] Last Admin: 01/11/19 06:15 Dose: 35 units Isosorbide Mononitrate (Imdur -) 30 mg PO DAILY [facility] Last Admin: 01/10/19 10:29 Dose: 30 mg Metoprolol Succinate (Toprol Xl -) 100 mg PO DAILY [facility] Last Admin: 01/10/19 10:29 Dose: 100 mg Montelukast Sodium (Singulair -) 10 mg PO HS [facility] Last Admin: 01/10/19 21:58 Dose: 10 mg Pantoprazole Sodium (Protonix -) 40 mg PO DAILY [facility] Last Admin: 01/10/19 10:29 Dose: 40 mg A/P r/o Pneumonia Atelectasis CAD s/p CABG Asthma HTN DM Hyperlipidemia NITA - continue antibiotics - inhaled bronchodilators - continue lasix - monitor urine output, creatinine - O2 to keep SpO2 >90% - DVT prophylaxis - outpt PFTs, PSG
[2019-01-11] MEDS: FUROSEMIDE 40 MG/4 ML INJECTABLE VIAL IVPUSH SCH ×2 (10:36→13:40)
[2019-01-11] MEDS: ISOSORBIDE MONONITRATE 30 MG TAB.SR.24H (FP) PO SCH (10:36)
[2019-01-11] MEDS: CLOPIDOGREL BISULFATE 75 MG TABLET (FP) PO SCH (10:36)
[2019-01-11] MEDS: PANTOPRAZOLE 40 MG TABLET (FP) PO SCH (10:36)
[2019-01-11] MEDS: amLODIPine BESYLATE 10 MG TABLET (FP) PO SCH (10:36)
--- NOTE | 2019-01-11 13:36 | PN ---
Physical Exam: SUBJECTIVE: Patient seen and examined at bedside. no acute events. L side chest discomfort, improved. denies fever, chills, sob, n/v/d, urinary sxs OBJECTIVE: Vital Signs Period Temp Pulse Resp BP Sys/Levi Pulse Ox Last 24 Hr 97.5 F-98.2 F 64-72 20-20 140-161/59-69 GENERAL: AOX3 NAD HEENT: NCAT, PERRRLA, EOMI, sclera anicteric, conjunctiva clear. oropharynx clear without exudates. MMM NECK: supple without lymphadenopathy, JVD, or masses. Chest: incision post CABG, clean/dry, TTP L breast/chest area, +2x2cm soft nontender non-erythematous mobile L axial lymph node LUNGS: decreased breath sounds on the L, no wheezing, crackles auscultated but improving HEART: RRR, normal S1 and S2 without murmur, rub or gallop. ABDOMEN: Soft, NTND, normoactive bowel sounds, no guarding, no rebound, no masses. LOWER EXTREMITIES: 2+ pulses, warm, well-perfused. LLE trace edema. NEUROLOGICAL: Cranial nerves II-XII intact. Normal speech. Laboratory Results - last 24 hr 01/10/19 01/11/19 01/11/19 17:21 05:51 12:23 POC Glucometer 196 177 177 Active Medications Generic Name Dose Route Start Last Admin Trade Name Freq PRN Reason Stop Dose Admin Acetaminophen 1,000 mg 01/07/19 23:30 01/09/19 11:48 Tylenol - PO 1,000 mg Q6H PRN Administration PAIN LEVEL 6-10 Albuterol/Ipratropium 1 amp 01/07/19 23:30 01/10/19 19:50 Duoneb - NEB 1 amp Q4H PRN Administration SHORTNESS OF BREATH Alprazolam 0.5 mg 01/07/19 23:30 01/09/19 21:14 Xanax - PO 0.5 mg HS PRN Administration ANXIETY Amlodipine Besylate 10 mg 01/10/19 11:13 01/11/19 10:36 Norvasc - PO 10 mg DAILY [facility] Administration Amoxicillin/Clavulanate Potassium 1 tab 01/09/19 08:00 01/11/19 09:07 Augmentin - 875mg Tablet PO 01/13/19 07:59 1 tab BID@0800,1730 [facility] Administration Atorvastatin Calcium 80 mg 01/08/19 22:00 01/10/19 21:58 Lipitor - PO 80 mg HS [facility] Administration Clopidogrel Bisulfate 75 mg 01/08/19 10:00 01/11/19 10:36 Plavix - PO 75 mg DAILY [facility] Administration Furosemide 80 mg 01/11/19 12:45 Lasix Injection - IVPUSH DAILY [facility] Heparin Sodium (Porcine) 5,000 unit 01/08/19 06:00 01/11/19 05:50 Heparin - SQ 5,000 unit TID [facility] Administration Insulin Aspart 1 vial 01/08/19 07:00 01/11/19 12:29 Novolog Vial Sliding Scale - SQ 2 units TIDAC [facility] Administration Protocol Insulin Detemir 35 units 01/09/19 14:05 01/11/19 06:15 Levemir Vial SQ 35 units AM [facility] Administration Isosorbide Mononitrate 30 mg 01/08/19 10:00 01/11/19 10:36 Imdur - PO 30 mg DAILY [facility] Administration Metoprolol Succinate 100 mg 01/08/19 10:00 01/11/19 10:36 Toprol Xl - PO 100 mg DAILY [facility] Administration Montelukast Sodium 10 mg 01/08/19 22:00 01/10/19 21:58 Singulair - PO 10 mg HS [facility] Administration Pantoprazole Sodium 40 mg 01/08/19 10:00 01/11/19 10:36 Protonix - PO 40 mg DAILY [facility] Administration ASSESSMENT/PLAN: 68 yo F with a PMHx of HTN, DM, CAD (s/p recent CABG 12/24), Asthma, presented to the ED with worsening SOB since her hospitalization @ [facility] on 12/24 for a CABG. #Acute hypoxic Respiratory Failure 2/2 b/l pleural effusions - resolving. afebrile. based on echo and CT findings unclear if effusions are 2/2 dCHF vs sepsis 2/2 LLL PNA vs post op inflammatory changes from recent CABG. -CXR w/ consolidation, pleural effusion -s/p Vanc/zosyn in ED -Leukocytosis resolved -ID consulted: Dr. Adams -bcx, legionella, MRSA screen neg -patient recently hospitalized for 5 days. -Day 6/7 total ABx, c/w Augmentin -duonebs PRN -CXR today still w/ congestion, IV Lasix increased to 80 qd as per cardio recs -pulm consulted, Rosanna, for noted pleural effusion. -cardio consulted, Ariana -ESR 73, CRP 1.8 -D-Dimer is elevated -CTA reviewed above, neg for PE, mod b/l effusions L>R -had pre-/post- evaluation, desats to 88, qualifies for home O2 2L upon discharge #CAD s/p CABG (12/24) -c/w Plavix, Toprol, imdur, norvasc, Lipitor 80 -patient allergic to ASA -troponins downtrended -echo reviewed above, nl EF, elevated RVP #Anemia - hgb 7.8 likely from recent CABG. -hgb 9.8...9.4...9.6 -Transfuse PRN to keep Hgb >8, s/p 1 unit pRBC total so far -monitor H/H #L breast pain w/ small 2x2cm L axial lymph node - soft nontender non- erythematous mobile. breast pain and lymph node likely 2/2 post op pain 2/2 recent CABG. no signs of inx. -pt will need to f/u outpt in 1 mo for monitoring of lymph node. -last mammo in 04/14 nl -pain ctl tylenol/tramadol #L adrenal gland enlargement - noted on CT -will f/u as outpt #vaginal yeast infx - itchy white discharge diflucan 150mg x1 on 01/07/19. will redose if no improvement after 72 hr #LLE edema - U/S neg for DVT #HTN - ctl -imdur 30mg -c/w increased dose of norvasc 10mg -toprol 100mg #Asthma -not in exacerbation -Duoneb PRN -cont home Singulair 10mg Daily #DM -A1c 7.0 -hold home meds -BGM -uses insulin pump at home, basal rate (~ 45U/d) -c/w levemir 40U HS and increase prn -ISS #FEN -no IV fluids needed -monitor lytes -diabetic diet #ppx -SQH -home protonix 40 qd Dispo tele Visit type - Emergency Visit Emergency Visit: Yes ED Registration Date: 01/05/19 Care time: The patient presented to the Emergency Department on the above date and was hospitalized for further evaluation of their emergent condition. - New Patient This patient is new to me today: Yes Date on this admission: 01/11/19 - Critical Care Critical Care patient: No
[2019-01-11] MEDS: ACETAMINOPHEN 500 MG TABLET (FP) PO PRN (14:35)
--- NOTE | 2019-01-11 15:25 | PN ---
Teaching Attending Note Name of Resident: Sukhdeep Levi ATTENDING PHYSICIAN STATEMENT I saw and evaluated the patient. I reviewed the resident's note and discussed the case with the resident. I agree with the resident's findings and plan as documented. SUBJECTIVE: No fever or chills. No LIND , no SOB . no CP OBJECTIVE: NAD CV: RRR Lungs: decreased breath sounds at bases, L > R . good air entry Ext: L leg edema 1+ . no erythema . + Ray's ASSESSMENT AND PLAN: 68 y/o lady with h/o CAD s/p CABG 12/24/18, HTN, HLP, DM who presented with worsening SOB and hypoxia. 1- SOB and hypoxia, due to probable PNA and b/l pleural effusions. - Cont augmentin for 1 more days - cont lasix IV per card. dose increased - pre-post Ambulatory pulse ox: need O2 L with ambulation only 2- Sepsis 2/2 probable b/l PNA: resolved - Augmantin 3- Acute diastolic heart failure exacerbation: - cont lasix for now. - cont BB 4- DM: off insulin pump now. - levemir 40 - cont SSI 5- HTN: Bp improved. - norvasc at 10 and metorpolol 6- CAD, s/p CABG: cont plavix. ASA on hold cont torpol, imdur, norvasc, and statin. 7- L axillary lymph node enlargement: f/u as out pt . 8- L adrenal gland enlargement on CT: f/u as out pt 9- L leg edema, US neg DVT px: heparin Sq HLOC
[2019-01-11] MEDS: ALBUTEROL SO4 2.5/IPRATROPIUM 0.5 INH SOL 3 ML VIAL.NEB. NEB PRN (17:42)
[2019-01-11 18:15] LABS: EPI CELLS 1.2 /HPF (0-5/HPF); HYALINE CASTS 7 /lpf (0-8); URINE APPEARANCE CLEAR; URINE BACTERIA 3.4 /hpf (NEGATIVE); URINE BILIRUBIN NEGATIVE (NEGATIVE); URINE COLOR YELLOW; URINE GLUCOSE (UA) NEGATIVE (NEGATIVE); URINE KETONE NEGATIVE (NEGATIVE); URINE LEUK ESTERASE NEGATIVE (NEGATIVE); URINE NITRITE NEGATIVE (NEGATIVE); URINE PROTEIN 2+ (NEGATIVE); URINE RBC 1 /hpf (0-4); URINE UROBILINOGEN 0.2 mg/dL (0.2-1.0); URINE WBC 3 /hpf (0-5)
[2019-01-11] MEDS ORDERED: INSULIN (NOVOLOG) ASPART 100 UNITS/ML 10ML VIAL ONE (22:17)
[2019-01-11] MEDS: ATORVASTATIN CA 80 MG TABLET (FP) PO SCH (22:26)
[2019-01-11] MEDS: MONTELUKAST NA 10 MG TABLET PO SCH (22:27)
[2019-01-12] MEDS: ALBUTEROL SO4 2.5/IPRATROPIUM 0.5 INH SOL 3 ML VIAL.NEB. NEB PRN ×2 (00:45→20:35)
[2019-01-12] MEDS: amLODIPine BESYLATE 10 MG TABLET (FP) PO SCH ×2 (01:19→09:34)
[2019-01-12] MEDS: ISOSORBIDE MONONITRATE 30 MG TAB.SR.24H (FP) PO SCH ×2 (01:19→09:34)
[2019-01-12] MEDS: ALPRAZolam 0.25 MG TABLET PO PRN ×2 (01:19→21:34)
[2019-01-12] MEDS ORDERED: INSULIN (NOVOLOG) ASPART 100 UNITS/ML 10ML VIAL ONE (06:01)
[2019-01-12] MEDS: HEPARIN NA (PORCINE) 5,000 UNITS/ML 1ML VIAL SQ SCH ×3 (06:10→21:33)
[2019-01-12] MEDS: INSULIN (LEVEMIR) 100 UNITS/ML UNITS SQ SCH (06:11)
[2019-01-12] MEDS: INSULIN SLIDING SCALE (NOVOLOG) 1 VIAL SQ SCH ×3 (06:11→17:23)
[2019-01-12 08:00] LABS: BLOOD UREA NITROGEN 29.4 mg/dL (7-18); CALCIUM 8.8 mg/dL (8.5-10.1); CREATININE 0.9 mg/dL (0.55-1.3)
[2019-01-12] MEDS: FUROSEMIDE 40 MG/4 ML INJECTABLE VIAL IVPUSH SCH (09:33)
[2019-01-12] MEDS: CLOPIDOGREL BISULFATE 75 MG TABLET (FP) PO SCH (09:34)
[2019-01-12] MEDS: AMOX TR/POT CLAV 875MG/125MG TABLETS (FP) PO SCH ×2 (09:34→17:24)
[2019-01-12] MEDS: PANTOPRAZOLE 40 MG TABLET (FP) PO SCH (09:35)
--- NOTE | 2019-01-12 10:34 | PN ---
Progress Note (short form) - Note Progress Note: PULMONARY States breathing continues to improve. Less chest tightness. Wheezing last night. Vital Signs Period Temp Pulse Resp BP Sys/Levi Pulse Ox Last 24 Hr 98.0 F-98.9 F 69-98 18-20 143-181/58-76 90-94 Gen: NAD at rest Heart: RRR Lung: scattered basilar rales Abd: soft, nontender Ext: LLE edema CBC, BMP 01/10/19 07:27 01/12/19 06:20 Active Medications Acetaminophen (Tylenol -) 1,000 mg PO Q6H PRN PRN Reason: PAIN LEVEL 6-10 Last Admin: 01/11/19 14:35 Dose: 1,000 mg Albuterol/Ipratropium (Duoneb -) 1 amp NEB Q4H PRN PRN Reason: SHORTNESS OF BREATH Last Admin: 01/12/19 00:45 Dose: 1 amp Alprazolam (Xanax -) 0.5 mg PO HS PRN PRN Reason: ANXIETY Last Admin: 01/12/19 01:19 Dose: 0.5 mg Amlodipine Besylate (Norvasc -) 10 mg PO DAILY [facility] Last Admin: 01/12/19 09:34 Dose: 10 mg Amoxicillin/Clavulanate Potassium (Augmentin - 875mg Tablet) 1 tab PO BID@0800, 1730 [facility] Stop: 01/13/19 07:59 Last Admin: 01/12/19 09:34 Dose: 1 tab Atorvastatin Calcium (Lipitor -) 80 mg PO HS [facility] Last Admin: 01/11/19 22:26 Dose: 80 mg Clopidogrel Bisulfate (Plavix -) 75 mg PO DAILY [facility] Last Admin: 01/12/19 09:34 Dose: 75 mg Furosemide (Lasix Injection -) 80 mg IVPUSH DAILY [facility] Last Admin: 01/12/19 09:33 Dose: 80 mg Heparin Sodium (Porcine) (Heparin -) 5,000 unit SQ TID [facility] Last Admin: 01/12/19 06:10 Dose: 5,000 unit Insulin Aspart (Novolog Vial Sliding Scale -) 1 vial SQ TIDAC [facility]; Protocol Last Admin: 01/12/19 06:11 Dose: 4 units Insulin Detemir (Levemir Vial) 40 units SQ AM [facility] Last Admin: 06/18/19 06:11 Dose: 40 units Isosorbide Mononitrate (Imdur -) 30 mg PO DAILY [facility] Last Admin: 01/12/19 09:34 Dose: 30 mg Metoprolol Succinate (Toprol Xl -) 100 mg PO DAILY [facility] Last Admin: 01/12/19 00:35 Dose: 100 mg Montelukast Sodium (Singulair -) 10 mg PO HS [facility] Last Admin: 01/11/19 22:27 Dose: 10 mg Pantoprazole Sodium (Protonix -) 40 mg PO DAILY [facility] Last Admin: 01/12/19 09:35 Dose: 40 mg A/P r/o Pneumonia Atelectasis CAD s/p recent CABG 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
[2019-01-12] MEDS ORDERED: ISOSORBIDE MONONITRATE 30 MG TAB.SR.24H (FP) PO SCH (10:49)
[2019-01-12] MEDS ORDERED: ISOSORBIDE MONONITRATE 30 MG TAB.SR.24H (FP) PO ONE (10:49)
[2019-01-12] MEDS: BUDESONIDE/FORMETEROL FUMARATE 160/4.5 mcg INHALER IH SCH ×2 (12:02→21:33)
[2019-01-12 12:58] VITALS: BMI 30.7
--- NOTE | 2019-01-12 13:18 | PN ---
Addendum entered and electronically signed by Sukhdeep Levi, RESIDENT 13:23: UA neg Original Note: Physical Exam: SUBJECTIVE: Patient seen and examined at bedside. hypertensive overnight 180s. L side chest discomfort, improved. denies fever, chills, sob, n/v/d, urinary sxs OBJECTIVE: Vital Signs Period Temp Pulse Resp BP Sys/Levi Pulse Ox Last 24 Hr 97.9 F-98.9 F 69-98 18-20 143-181/58-76 90-94 GENERAL: AOX3 NAD HEENT: NCAT, PERRRLA, EOMI, sclera anicteric, conjunctiva clear. oropharynx clear without exudates. MMM NECK: supple without lymphadenopathy, JVD, or masses. Chest: incision post CABG, clean/dry, TTP L breast/chest area, +2x2cm soft nontender non-erythematous mobile L axial lymph node LUNGS: decreased breath sounds on the L, no wheezing, crackles auscultated but improving HEART: RRR, normal S1 and S2 without murmur, rub or gallop. ABDOMEN: Soft, NTND, normoactive bowel sounds, no guarding, no rebound, no masses. LOWER EXTREMITIES: 2+ pulses, warm, well-perfused. LLE trace edema. NEUROLOGICAL: Cranial nerves II-XII intact. Normal speech. Laboratory Results - last 24 hr 01/11/19 01/11/19 01/11/19 12:30 16:31 17:15 Sodium Potassium Chloride Carbon Dioxide Anion Gap BUN Creatinine Est GFR (CKD-EPI)AfAm Est GFR (CKD-EPI)NonAf POC Glucometer 213 Random Glucose Calcium C-Reactive Protein 1.8 H Urine Color Yellow Urine Appearance Clear Urine pH 5.0 Ur Specific [place] 1.010 Urine Protein 2+ H Urine Glucose (UA) Negative Urine Ketones Negative Urine Blood Negative Urine Nitrite Negative Urine Bilirubin Negative Urine Urobilinogen 0.2 Ur Leukocyte Esterase Negative Urine WBC (Auto) 3 Urine RBC (Auto) 1 Urine Casts (Auto) 7 U Pathogenic Cast Auto No Result Required. U Epithel Cells (Auto) 1.2 U Sm Round Cell (Auto) No Result Required. Urine Crystals (Auto) No Result Required. Urine Bacteria (Auto) 3.4 01/11/19 01/12/19 01/12/19 21:03 06:07 06:20 Sodium 142 Potassium 4.0 Chloride 106 Carbon Dioxide 29 Anion Gap 7 L BUN 29.4 H Creatinine 0.9 Est GFR (CKD-EPI)AfAm 75.61 Est GFR (CKD-EPI)NonAf 65.24 POC Glucometer 261 220 Random Glucose 224 H Calcium 8.8 C-Reactive Protein Urine Color Urine Appearance Urine pH Ur Specific [place] Urine Protein Urine Glucose (UA) Urine Ketones Urine Blood Urine Nitrite Urine Bilirubin Urine Urobilinogen Ur Leukocyte Esterase Urine WBC (Auto) Urine RBC (Auto) Urine Casts (Auto) U Pathogenic Cast Auto U Epithel Cells (Auto) U Sm Round Cell (Auto) Urine Crystals (Auto) Urine Bacteria (Auto) 01/12/19 12:03 Sodium Potassium Chloride Carbon Dioxide Anion Gap BUN Creatinine Est GFR (CKD-EPI)AfAm Est GFR (CKD-EPI)NonAf POC Glucometer 208 Random Glucose Calcium C-Reactive Protein Urine Color Urine Appearance Urine pH Ur Specific [place] Urine Protein Urine Glucose (UA) Urine Ketones Urine Blood Urine Nitrite Urine Bilirubin Urine Urobilinogen Ur Leukocyte Esterase Urine WBC (Auto) Urine RBC (Auto) Urine Casts (Auto) U Pathogenic Cast Auto U Epithel Cells (Auto) U Sm Round Cell (Auto) Urine Crystals (Auto) Urine Bacteria (Auto) Active Medications Generic Name Dose Route Start Last Admin Trade Name Freq PRN Reason Stop Dose Admin Acetaminophen 1,000 mg 01/07/19 23:30 01/11/19 14:35 Tylenol - PO 1,000 mg Q6H PRN Administration PAIN LEVEL 6-10 Albuterol/Ipratropium 1 amp 01/07/19 23:30 01/12/19 00:45 Duoneb - NEB 1 amp Q4H PRN Administration SHORTNESS OF BREATH Alprazolam 0.5 mg 01/07/19 23:30 01/12/19 01:19 Xanax - PO 0.5 mg HS PRN Administration ANXIETY Amlodipine Besylate 10 mg 01/10/19 11:13 01/12/19 09:34 Norvasc - PO 10 mg DAILY JAMEL Administration Amoxicillin/Clavulanate Potassium 1 tab 01/09/19 08:00 01/12/19 09:34 Augmentin - 875mg Tablet PO 01/13/19 07:59 1 tab BID@0800,1730 JAMEL Administration Atorvastatin Calcium 80 mg 01/08/19 22:00 06/17/19 22:26 Lipitor - PO 80 mg HS JAMEL Administration Budesonide/Formoterol Fumarate 2 puff 01/12/19 11:00 01/12/19 12:02 Symbicort 160/4.5mcg - IH 2 inh BID JAMEL Administration Clopidogrel Bisulfate 75 mg 01/08/19 10:00 01/12/19 09:34 Plavix - PO 75 mg DAILY JAMEL Administration Furosemide 80 mg 01/11/19 12:45 01/12/19 09:33 Lasix Injection - IVPUSH 80 mg DAILY JAMEL Administration Heparin Sodium (Porcine) 5,000 unit 01/08/19 06:00 01/12/19 06:10 Heparin - SQ 5,000 unit TID JAMEL Administration Insulin Aspart 1 vial 01/08/19 07:00 01/12/19 12:04 Novolog Vial Sliding Scale - SQ 4 units TIDAC JAMEL Administration Protocol Insulin Detemir 40 units 01/12/19 07:00 01/12/19 06:11 Levemir Vial SQ 40 units AM JAMEL Administration Isosorbide Mononitrate 60 mg 01/13/19 10:00 Imdur - PO DAILY JAMEL Metoprolol Succinate 100 mg 01/08/19 10:00 01/12/19 12:01 Toprol Xl - PO Not Given DAILY JAMEL Montelukast Sodium 10 mg 01/08/19 22:00 01/11/19 22:27 Singulair - PO 10 mg HS JAMEL Administration Pantoprazole Sodium 40 mg 01/08/19 10:00 01/12/19 09:35 Protonix - PO 40 mg DAILY JAMEL Administration ASSESSMENT/PLAN: 68 yo F with a PMHx of HTN, DM, CAD (s/p recent CABG 12/24), Asthma, presented to the ED with worsening SOB since her hospitalization @ [facility] on 12/24 for a CABG. #Acute hypoxic Respiratory Failure 2/2 b/l pleural effusions - resolving. afebrile. based on echo and CT findings unclear if effusions are 2/2 dCHF vs sepsis 2/2 LLL PNA vs post op inflammatory changes from recent CABG. -CXR w/ consolidation, pleural effusion -s/p Vanc/zosyn in ED -Leukocytosis resolved -ID consulted: Dr. Adams -bcx, legionella, MRSA screen, sputum cx neg -patient recently hospitalized for 5 days. -Day 7 total ABx, last day Augmentin -duonebs PRN -c/w IV Lasix 80 qd as per cardio recs -CXR today shows slight decrease in effusion but still sizable, will touch base w/ cardio as to when we can switch to PO -pulm consulted, Rosanna, for noted pleural effusion. -cardio consulted, Ariana -ESR 73, CRP 1.8 -D-Dimer is elevated -CTA reviewed above, neg for PE, mod b/l effusions L>R -had pre-/post- evaluation, desats to 88, qualifies for home O2 2L upon discharge #CAD s/p CABG (12/24) -c/w Plavix, Toprol, imdur, norvasc, Lipitor 80 -patient allergic to ASA -troponins downtrended -echo reviewed above, nl EF, elevated RVP #Anemia - hgb 7.8 likely from recent CABG. -hgb 9.8...9.4...9.6, H/H stable -Transfuse PRN to keep Hgb >8, s/p 1 unit pRBC total so far -monitor H/H #L breast pain w/ small 2x2cm L axial lymph node - soft nontender non- erythematous mobile. breast pain and lymph node likely 2/2 post op pain 2/2 recent CABG. no signs of inx. -pt will need to f/u outpt in 1 mo for monitoring of lymph node. -last mammo in 04/14 nl -pain ctl tylenol/tramadol #L adrenal gland enlargement - noted on CT -will f/u as outpt #vaginal yeast infx - itchy white discharge diflucan 150mg x1 on 01/07/19. will redose if no improvement after 72 hr #LLE edema - U/S neg for DVT #HTN - -increased imdur 30 to 60mg qd for noted HTN overnight -c/w increased dose of norvasc 10mg -toprol 100mg #Asthma -not in exacerbation -Duoneb PRN -cont home Singulair 10mg Daily #DM -A1c 7.0 -hold home meds -BGM -uses insulin pump at home, basal rate (~ 45U/d) -c/w levemir 40U HS and increase prn -ISS #FEN -no IV fluids needed -monitor lytes -diabetic diet #ppx -SQH -home protonix 40 qd Dispo tele Visit type - Emergency Visit Emergency Visit: Yes ED Registration Date: 01/05/19 Care time: The patient presented to the Emergency Department on the above date and was hospitalized for further evaluation of their emergent condition. - New Patient This patient is new to me today: Yes Date on this admission: 01/12/19 - Critical Care Critical Care patient: No
--- NOTE | 2019-01-12 14:53 | PN ---
Teaching Attending Note Name of Resident: Sukhdeep Levi ATTENDING PHYSICIAN STATEMENT I saw and evaluated the patient. I reviewed the resident's note and discussed the case with the resident. I agree with the resident's findings and plan as documented. SUBJECTIVE: No fever or chills. no LIND. last night had some wheezing, and BP was high . OBJECTIVE: NAD CV: RRR Lungs: decreased breath sounds at bases, L > R . good air entry , no wheezing. Ext: b/l LE edema L > R ASSESSMENT AND PLAN: 68 y/o lady with h/o CAD s/p CABG 12/24/18, HTN, HLP, DM who presented with worsening SOB and hypoxia. 1- SOB and hypoxia, due to probable PNA and b/l pleural effusions. - last day of augmentin - will d/w card regarding lasix - pre-post Ambulatory pulse ox: need O2 L with ambulation only 2- Sepsis 2/2 probable b/l PNA: resolved - Augmantin 3- Acute diastolic heart failure exacerbation: - lasix - cont BB 4- DM: off insulin pump now. - levemir 40 - cont SSI 5- HTN: - cont norvasc at 10 and metorpolol - increase imdur to 60 6- CAD, s/p CABG: cont plavix. ASA on hold cont torpol, imdur, norvasc, and statin. will ask card if asa is to be resumed. 7- L axillary lymph node enlargement: f/u as out pt . 8- L adrenal gland enlargement on CT: f/u as out pt 9- L leg edema, US neg DVT px: heparin Sq Dispo: depends on if we can switch to po lasix. will d/w card .
--- NOTE | 2019-01-12 15:23 | PN ---
Progress Note (short form) - Note Progress Note: s: no cp palps dizzy; sob improving o: Vital Signs Period Temp Pulse Resp BP Sys/Levi Pulse Ox Last 24 Hr 97.9 F-98.9 F 70-98 18-20 140-181/52-76 94 nad no jvd rrr s1s2 no mrg dec bs bases, nl eff aao3 no le edema, no c/c abd nt nd pos bs no jaundice diaphoresis Current Medications Generic Name Dose Route Start Last Admin Trade Name Freq PRN Reason Stop Dose Admin Acetaminophen 1,000 mg 01/07/19 23:30 01/11/19 14:35 Tylenol - PO 1,000 mg Q6H PRN Administration PAIN LEVEL 6-10 Albuterol/Ipratropium 1 amp 01/07/19 23:30 01/12/19 00:45 Duoneb - NEB 1 amp Q4H PRN Administration SHORTNESS OF BREATH Alprazolam 0.5 mg 01/07/19 23:30 01/12/19 01:19 Xanax - PO 0.5 mg HS PRN Administration ANXIETY Amlodipine Besylate 10 mg 01/10/19 11:13 01/12/19 09:34 Norvasc - PO 10 mg DAILY JAMEL Administration Amoxicillin/Clavulanate Potassium 1 tab 01/09/19 08:00 01/12/19 09:34 Augmentin - 875mg Tablet PO 01/13/19 07:59 1 tab BID@0800,1730 JAMEL Administration Atorvastatin Calcium 80 mg 01/08/19 22:00 01/11/19 22:26 Lipitor - PO 80 mg HS JAMEL Administration Budesonide/Formoterol Fumarate 2 puff 01/12/19 11:00 01/12/19 12:02 Symbicort 160/4.5mcg - IH 2 inh BID JAMEL Administration Clopidogrel Bisulfate 75 mg 01/08/19 10:00 01/12/19 09:34 Plavix - PO 75 mg DAILY JAMEL Administration Furosemide 80 mg 01/11/19 12:45 01/12/19 09:33 Lasix Injection - IVPUSH 80 mg DAILY JAMEL Administration Heparin Sodium (Porcine) 5,000 unit 01/08/19 06:00 01/12/19 15:18 Heparin - SQ 5,000 unit TID JAMEL Administration Insulin Aspart 1 vial 01/08/19 07:00 01/12/19 12:04 Novolog Vial Sliding Scale - SQ 4 units TIDAC JAMEL Administration Protocol Insulin Detemir 40 units 01/12/19 07:00 01/12/19 06:11 Levemir Vial SQ 40 units AM JAMEL Administration Isosorbide Mononitrate 60 mg 01/13/19 10:00 Imdur - PO DAILY JAMEL Metoprolol Succinate 100 mg 01/08/19 10:00 01/12/19 12:01 Toprol Xl - PO Not Given DAILY JAMEL Montelukast Sodium 10 mg 01/08/19 22:00 01/11/19 22:27 Singulair - PO 10 mg HS JAMEL Administration Pantoprazole Sodium 40 mg 01/08/19 10:00 01/12/19 09:35 Protonix - PO 40 mg DAILY JAMEL Administration CBC, BMP 01/10/19 07:27 01/12/19 06:20 echo 12/2018: tds; nl lv, rv tds, mild tr, rvsp 40-50 echo 08/2015: nl lv/rv, no sig valve path cxr: left lower lobe consolidation and eff ecg: sr, no ischemic changes a/p: 68 f hx cad s/p elective cabg (was just dc about a week ago from [facility]) , asthma, hld, htn, dm, here with sob. moderate pleural effusions, ? LLL infiltrate vs compressive ATX, pleuritic back pain -vol overload s/p CT surgery -no PE on CTA (surgery was approx 2 weeks [facility]) -no significant structural heart dz on echo -started iv lasix 40 qd - resp status improving but still with significant pleural eff so was increased to lasix 80 iv qd 01/11. -01/12: cxr shows improved, but still significant, pleural eff and pt with bello still. Would cont iv lasix and reassess tomorrow. cad: -s/p recent cabg -no signs acs. trop borderline elevated with flat trend and nl ck, likely not acs -cont home toprol 25, atorva 40, dilt 240 qd, clonidine 0.1 qwk patch, chlorthalidone 25, aldactone 12.5, fenofibrate 145, benicar. -on plavix htn: - resistant HTN with severe lability in response to anxiety/stress - bp's here mostly 140s-160s (which is her baseline), at times variable - cont same meds for now anemia: -likely related to recent surgery, improved now hld: -cont statin
[2019-01-12] MEDS: MONTELUKAST NA 10 MG TABLET PO SCH (21:33)
[2019-01-12] MEDS: ATORVASTATIN CA 80 MG TABLET (FP) PO SCH (21:33)
[2019-01-12] MEDS ORDERED: INSULIN (NOVOLOG) ASPART 100 UNITS/ML 10ML VIAL SQ ONE (23:36)
[2019-01-13] MEDS: HEPARIN NA (PORCINE) 5,000 UNITS/ML 1ML VIAL SQ SCH ×3 (06:03→21:22)
[2019-01-13] MEDS: INSULIN (LEVEMIR) 100 UNITS/ML UNITS SQ SCH (06:05)
[2019-01-13] MEDS: INSULIN SLIDING SCALE (NOVOLOG) 1 VIAL SQ SCH ×3 (06:06→17:50)
[2019-01-13] MEDS: ALBUTEROL SO4 2.5/IPRATROPIUM 0.5 INH SOL 3 ML VIAL.NEB. NEB PRN ×2 (07:35→20:28)
[2019-01-13 07:48] LABS: BLOOD UREA NITROGEN 27.4 mg/dL (7-18); CALCIUM 8.6 mg/dL (8.5-10.1); POTASSIUM 3.6 mmol/L (3.5-5.1)
--- NOTE | 2019-01-13 09:21 | PN ---
Teaching Attending Note Name of Resident: Sukhdeep Levi ATTENDING PHYSICIAN STATEMENT I saw and evaluated the patient. I reviewed the resident's note and discussed the case with the resident. I agree with the resident's findings and plan as documented. SUBJECTIVE: Patient is feeling better with no acute distress. on 2 Liter NC . Feel palpitations on symbicort vs duonebs. OBJECTIVE: Vital Signs Temperature 98.4 F 01/13/19 06:49 Pulse Rate 99 H 01/13/19 06:49 Respiratory Rate 20 01/13/19 06:49 Blood Pressure 162/70 01/13/19 06:49 O2 Sat by Pulse Oximetry (%) 96 01/12/19 21:00 GENERAL: The patient is awake, alert, and fully oriented, in no acute distress. on 2liter nc HEAD: Normal with no signs of trauma. EYES: PERRL, extraocular movements intact, sclera anicteric, conjunctiva clear. ENT: Ears normal, oropharynx clear without exudates, moist mucous membranes. NECK: Trachea midline, full range of motion, supple. LUNGS: Breath sounds equal, clear to auscultation bilaterally, no wheezes, no crackles, no accessory muscle use. HEART: tachycardic due to nebs. S1, S2 without murmur, rub or gallop. ABDOMEN: Soft, nontender, nondistended, normoactive bowel sounds, no guarding, no rebound, no hepatosplenomegaly, no masses. EXTREMITIES: 2+ pulses, warm, well-perfused, no edema. NEUROLOGICAL: Cranial nerves II through XII grossly intact. Normal speech, gait not observed. PSYCH: Normal mood, normal affect. SKIN: Warm, dry, normal turgor, no rashes or lesions noted WBC 9.9 K/mm3 (4.0-10.0) 01/10/19 07:27 RBC 3.53 M/mm3 (3.60-5.2) L 01/10/19 07:27 Hgb 9.9 GM/dL (10.7-15.3) L 01/10/19 07:27 Hct 29.7 % (32.4-45.2) L 01/10/19 07:27 MCV 84.2 fl (80-96) 01/10/19 07:27 MCHC 33.2 g/dl (32.0-36.0) 01/10/19 07:27 RDW 14.2 % (11.6-15.6) 01/10/19 07:27 Plt Count 388 K/MM3 (134-434) 01/10/19 07:27 MPV 7.8 fl (7.5-11.1) 01/10/19 07:27 CMP Sodium 143 mmol/L (136-145) 01/13/19 06:21 Potassium 3.6 mmol/L (3.5-5.1) 01/13/19 06:21 Chloride 106 mmol/L (98-107) 01/13/19 06:21 Carbon Dioxide 28 mmol/L (21-32) 01/13/19 06:21 Anion Gap 9 MMOL/L (8-16) 01/13/19 06:21 BUN 27.4 mg/dL (7-18) H 01/13/19 06:21 Creatinine 1.0 mg/dL (0.55-1.3) 01/13/19 06:21 Random Glucose 231 mg/dL (74-106) H 01/13/19 06:21 Calcium 8.6 mg/dL (8.5-10.1) 01/13/19 06:21 Total Bilirubin 0.4 mg/dL (0.2-1) 01/07/19 07:50 AST 19 U/L (15-37) 01/07/19 07:50 ALT 44 U/L (13-61) 01/07/19 07:50 Alkaline Phosphatase 94 U/L (45-117) 01/07/19 07:50 Total Protein 6.4 g/dl (6.4-8.2) 01/07/19 07:50 Albumin 3.0 g/dl (3.4-5.0) L 01/07/19 07:50 CARDIAC ENZYMES Creatine Kinase 97 U/L (26-192) 01/05/19 20:20 Troponin I 0.06 ng/ml (0.00-0.05) H 01/06/19 17:40 Current Medications Generic Name Dose Route Start Last Admin Trade Name Freq PRN Reason Stop Dose Admin Acetaminophen 1,000 mg 01/07/19 23:30 01/11/19 14:35 Tylenol - PO 1,000 mg Q6H PRN Administration PAIN LEVEL 6-10 Albuterol/Ipratropium 1 amp 06/13/19 23:30 01/12/19 20:35 Duoneb - NEB 1 amp Q4H PRN Administration SHORTNESS OF BREATH Alprazolam 0.5 mg 01/07/19 23:30 01/12/19 21:34 Xanax - PO 0.5 mg HS PRN Administration ANXIETY Amlodipine Besylate 10 mg 01/10/19 11:13 01/12/19 09:34 Norvasc - PO 10 mg DAILY JAMEL Administration Atorvastatin Calcium 80 mg 01/08/19 22:00 01/12/19 21:33 Lipitor - PO 80 mg HS JAMEL Administration Budesonide/Formoterol Fumarate 2 puff 01/12/19 11:00 01/12/19 21:33 Symbicort 160/4.5mcg - IH 2 inh BID JAMEL Administration Clopidogrel Bisulfate 75 mg 01/08/19 10:00 01/12/19 09:34 Plavix - PO 75 mg DAILY JAMEL Administration Furosemide 80 mg 01/11/19 12:45 01/12/19 09:33 Lasix Injection - IVPUSH 80 mg DAILY [facility] Administration Heparin Sodium (Porcine) 5,000 unit 01/08/19 06:00 01/13/19 06:03 Heparin - SQ 5,000 unit TID JAMEL Administration Insulin Aspart 1 vial 01/08/19 07:00 01/13/19 06:06 Novolog Vial Sliding Scale - SQ 4 units TIDAC [facility] Administration Protocol Insulin Detemir 40 units 01/12/19 07:00 01/13/19 06:05 Levemir Vial SQ 40 units AM JAMEL Administration Isosorbide Mononitrate 60 mg 01/13/19 10:00 Imdur - PO DAILY JAMEL Metoprolol Succinate 100 mg 01/08/19 10:00 01/12/19 12:01 Toprol Xl - PO Not Given DAILY JAMEL Montelukast Sodium 10 mg 01/08/19 22:00 01/12/19 21:33 Singulair - PO 10 mg HS JAMEL Administration Pantoprazole Sodium 40 mg 01/08/19 10:00 01/12/19 09:35 Protonix - PO 40 mg DAILY JAMEL Administration Home Medications Medication Instructions Recorded Albuterol Sulfate Inhaler - 1 - 2 inh IH DAILY PRN 09/28/12 [Ventolin HFA Inhaler -] Alprazolam [Xanax] 0.5 mg PO HS PRN 09/28/12 Insulin Regular, Human [Humulin R] 8 unit IJ UTDICT 09/28/12 Alprazolam [Xanax] 0.5 mg PO HS 01/05/19 Amlodipine Besylate 5 mg PO DAILY 01/05/19 Atorvastatin Ca [Lipitor] 80 mg PO HS 01/05/19 Clopidogrel Bisulfate [Plavix] 75 mg PO DAILY 01/05/19 Escitalopram Oxalate [Lexapro -] 10 mg PO DAILY 01/05/19 Furosemide [Lasix -] 40 mg PO DAILY 01/05/19 Isosorbide Mononitrate [Isosorbide 30 mg PO DAILY 01/05/19 Mononitrate ER] Metoprolol Succinate 100 mg PO DAILY 01/05/19 Montelukast Na [Singulair -] 10 mg PO HS 01/05/19 Oxycodone HCl/Acetaminophen 1 - 2 tab PO Q4H 01/05/19 [Percocet 5-325 mg Tablet] Pantoprazole Sodium 40 mg PO DAILY 01/05/19 ASSESSMENT AND PLAN: Patient is a 68yo female with PMHx of CAD s/p CABG 12/24/18, HTN, HLP, DM who presented with worsening SOB and hypoxia. #Acute SOB/ hypoxia, due to possible left base PNA/atelectasis with b/l pleural effusions. completed Augmentin today. 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 continue levemir 40, cont SSI # HTN: cont norvasc at 10 and metorpolol , increased imdur to 60 # CAD, s/p CABG: cont plavix. ASA on hold , cont torpol, imdur, norvasc, and statin. will ask card if asa is to be resumed. # L axillary lymph node enlargement: f/u as out pt . # L adrenal gland enlargement on CT: f/u as out pt # L leg edema, US neg DVT px: heparin Sq Dispo: depends on if we can switch to po lasix. will d/w card .
[2019-01-13] MEDS: PANTOPRAZOLE 40 MG TABLET (FP) PO SCH (10:16)
[2019-01-13] MEDS: ISOSORBIDE MONONITRATE 60 MG TAB.SR.24H (FP) PO SCH (10:16)
[2019-01-13] MEDS: amLODIPine BESYLATE 10 MG TABLET (FP) PO SCH (10:16)
[2019-01-13] MEDS: CLOPIDOGREL BISULFATE 75 MG TABLET (FP) PO SCH (10:16)
[2019-01-13] MEDS: FUROSEMIDE 40 MG/4 ML INJECTABLE VIAL IVPUSH SCH (10:16)
[2019-01-13] MEDS: BUDESONIDE/FORMETEROL FUMARATE 160/4.5 mcg INHALER IH SCH (10:17)
--- NOTE | 2019-01-13 11:06 | PN ---
Physical Exam: SUBJECTIVE: Patient seen and examined at bedside. Breathing well, no overnight events or complaints. OBJECTIVE: Vital Signs Period Temp Pulse Resp BP Sys/Levi Pulse Ox Last 24 Hr 98.1 F-98.9 F 77-107 18-20 140-165/52-70 96 GENERAL: AOX3 NAD HEENT: NCAT, PERRRLA, EOMI, sclera anicteric, conjunctiva clear. oropharynx clear without exudates. MMM NECK: supple without lymphadenopathy, JVD, or masses. Chest: incision post CABG, clean/dry, TTP L breast/chest area, +2x2cm soft nontender non-erythematous mobile L axial lymph node LUNGS: decreased breath sounds on the L, no wheezing, crackles auscultated but improving HEART: RRR, normal S1 and S2 without murmur, rub or gallop. ABDOMEN: Soft, NTND, normoactive bowel sounds, no guarding, no rebound, no masses. LOWER EXTREMITIES: 2+ pulses, warm, well-perfused. LLE trace edema. NEUROLOGICAL: Cranial nerves II-XII intact. Normal speech. Laboratory Results - last 24 hr 01/12/19 01/12/19 01/12/19 12:03 16:51 23:07 Sodium Potassium Chloride Carbon Dioxide Anion Gap BUN Creatinine Est GFR (CKD-EPI)AfAm Est GFR (CKD-EPI)NonAf POC Glucometer 208 324 359 Random Glucose Calcium 01/13/19 01/13/19 06:04 06:21 Sodium 143 Potassium 3.6 Chloride 106 Carbon Dioxide 28 Anion Gap 9 BUN 27.4 H Creatinine 1.0 Est GFR (CKD-EPI)AfAm 66.57 Est GFR (CKD-EPI)NonAf 57.44 POC Glucometer 228 Random Glucose 231 H Calcium 8.6 Active Medications Generic Name Dose Route Start Last Admin Trade Name Freq PRN Reason Stop Dose Admin Acetaminophen 1,000 mg 01/07/19 23:30 01/11/19 14:35 Tylenol - PO 1,000 mg Q6H PRN Administration PAIN LEVEL 6-10 Albuterol/Ipratropium 1 amp 01/07/19 23:30 01/13/19 07:35 Duoneb - NEB 1 amp Q4H PRN Administration SHORTNESS OF BREATH Alprazolam 0.5 mg 01/07/19 23:30 01/12/19 21:34 Xanax - PO 0.5 mg HS PRN Administration ANXIETY Amlodipine Besylate 10 mg 01/10/19 11:13 01/13/19 10:16 Norvasc - PO 10 mg DAILY JAMEL Administration Atorvastatin Calcium 80 mg 01/08/19 22:00 01/12/19 21:33 Lipitor - PO 80 mg HS JAMEL Administration Budesonide/Formoterol Fumarate 2 puff 01/12/19 11:00 01/13/19 10:17 Symbicort 160/4.5mcg - IH 2 inh BID JAMEL Administration Clopidogrel Bisulfate 75 mg 01/08/19 10:00 01/13/19 10:16 Plavix - PO 75 mg DAILY JAMEL Administration Furosemide 80 mg 01/11/19 12:45 01/13/19 10:16 Lasix Injection - IVPUSH 80 mg DAILY JAMEL Administration Heparin Sodium (Porcine) 5,000 unit 01/08/19 06:00 01/13/19 06:03 Heparin - SQ 5,000 unit TID JAMEL Administration Insulin Aspart 1 vial 01/08/19 07:00 01/13/19 06:06 Novolog Vial Sliding Scale - SQ 4 units TIDAC [facility] Administration Protocol Insulin Detemir 40 units 01/12/19 07:00 01/13/19 06:05 Levemir Vial SQ 40 units AM JAMEL Administration Isosorbide Mononitrate 60 mg 01/13/19 10:00 01/13/19 10:16 Imdur - PO 60 mg DAILY JAMEL Administration Metoprolol Succinate 100 mg 01/08/19 10:00 01/13/19 10:15 Toprol Xl - PO 100 mg DAILY JAMEL Administration Montelukast Sodium 10 mg 01/08/19 22:00 01/12/19 21:33 Singulair - PO 10 mg HS JAMEL Administration Pantoprazole Sodium 40 mg 01/08/19 10:00 01/13/19 10:16 Protonix - PO 40 mg DAILY JAMEL Administration ASSESSMENT/PLAN: 68 yo F with a PMHx of HTN, DM, CAD (s/p recent CABG 12/24), Asthma, presented to the ED with worsening SOB since her hospitalization @ [facility] on 12/24 for a CABG. #Acute hypoxic Respiratory Failure 2/2 b/l pleural effusions - resolving. afebrile. based on echo and CT findings unclear if effusions are 2/2 dCHF vs sepsis 2/2 LLL PNA vs post op inflammatory changes from recent CABG. -CXR w/ consolidation, pleural effusion -s/p Vanc/zosyn in ED -Leukocytosis resolved -ID consulted: Dr. Adams -bcx, legionella, MRSA screen, sputum cx neg -patient recently hospitalized for 5 days. -Completed ABx -duonebs PRN -c/w IV Lasix 80 qd as per cardio recs -CXR today unchanged from prior with fluid in horizontal fissure -pulm consulted, Rosanna, for noted pleural effusion. -cardio consulted, Ariana -ESR 73, CRP 1.8 -D-Dimer is elevated -CTA reviewed above, neg for PE, mod b/l effusions L>R -had pre-/post- evaluation, desats to 88, qualifies for home O2 2L upon discharge #CAD s/p CABG (12/24) -c/w Plavix, Toprol, imdur, norvasc, Lipitor 80 -patient allergic to ASA -troponins downtrended -echo reviewed above, nl EF, elevated RVP #Anemia - hgb 7.8 likely from recent CABG. -hgb 9.8...9.4...9.6, H/H stable -Transfuse PRN to keep Hgb >8, s/p 1 unit pRBC total so far -monitor H/H #L breast pain w/ small 2x2cm L axial lymph node - soft nontender non- erythematous mobile. breast pain and lymph node likely 2/2 post op pain 2/2 recent CABG. no signs of inx. -pt will need to f/u outpt in 1 mo for monitoring of lymph node. -last mammo in 04/14 nl -pain ctl tylenol/tramadol #L adrenal gland enlargement - noted on CT -will f/u as outpt #vaginal yeast infx - itchy white discharge diflucan 150mg x1 on 01/07/19. will redose if no improvement after 72 hr #LLE edema - U/S neg for DVT #HTN - -increased imdur 30 to 60mg qd for noted HTN overnight -c/w increased dose of norvasc 10mg -toprol 100mg #Asthma -not in exacerbation -Duoneb PRN -cont home Singulair 10mg Daily #DM -A1c 7.0 -hold home meds -BGM -uses insulin pump at home, basal rate (~ 45U/d) -c/w levemir 40U HS and increase prn -ISS #FEN -no IV fluids needed -monitor lytes -diabetic diet #ppx -SQH -home protonix 40 qd Dispo tele Visit type - Emergency Visit Emergency Visit: No - New Patient This patient is new to me today: No - Critical Care Critical Care patient: No
--- NOTE | 2019-01-13 14:07 | PN ---
Progress Note, Physician Chief Complaint: episode palpitations earlier, now resolved Said it happened when she used her "pump" History of Present Illness: weight is down - Current Medication List Current Medications: Active Medications Acetaminophen (Tylenol -) 1,000 mg PO Q6H PRN PRN Reason: PAIN LEVEL 6-10 Last Admin: 01/11/19 14:35 Dose: 1,000 mg Albuterol/Ipratropium (Duoneb -) 1 amp NEB Q4H PRN PRN Reason: SHORTNESS OF BREATH Last Admin: 01/13/19 07:35 Dose: 1 amp Alprazolam (Xanax -) 0.5 mg PO HS PRN PRN Reason: ANXIETY Last Admin: 01/12/19 21:34 Dose: 0.5 mg Amlodipine Besylate (Norvasc -) 10 mg PO DAILY [facility] Last Admin: 01/13/19 10:16 Dose: 10 mg Atorvastatin Calcium (Lipitor -) 80 mg PO HS [facility] Last Admin: 01/12/19 21:33 Dose: 80 mg Budesonide/Formoterol Fumarate (Symbicort 160/4.5mcg -) 2 puff IH BID [facility] Last Admin: 01/13/19 10:17 Dose: 2 inh Clopidogrel Bisulfate (Plavix -) 75 mg PO DAILY [facility] Last Admin: 01/13/19 10:16 Dose: 75 mg Furosemide (Lasix Injection -) 80 mg IVPUSH DAILY [facility] Last Admin: 01/13/19 10:16 Dose: 80 mg Heparin Sodium (Porcine) (Heparin -) 5,000 unit SQ TID [facility] Last Admin: 01/13/19 13:40 Dose: 5,000 unit Insulin Aspart (Novolog Vial Sliding Scale -) 1 vial SQ TIDAC [facility]; Protocol Last Admin: 01/13/19 12:02 Dose: 4 units Insulin Detemir (Levemir Vial) 40 units SQ AM [facility] Last Admin: 01/13/19 06:05 Dose: 40 units Isosorbide Mononitrate (Imdur -) 60 mg PO DAILY [facility] Last Admin: 01/13/19 10:16 Dose: 60 mg Metoprolol Succinate (Toprol Xl -) 100 mg PO DAILY [facility] Last Admin: 01/13/19 10:15 Dose: 100 mg Montelukast Sodium (Singulair -) 10 mg PO HS [facility] Last Admin: 01/12/19 21:33 Dose: 10 mg Pantoprazole Sodium (Protonix -) 40 mg PO DAILY [facility] Last Admin: 01/13/19 10:16 Dose: 40 mg - Objective Vital Signs: Vital Signs Temperature 98.4 F 01/13/19 06:49 Pulse Rate 99 H 01/13/19 06:49 Respiratory Rate 20 01/13/19 06:49 Blood Pressure 162/70 01/13/19 06:49 O2 Sat by Pulse Oximetry (%) 96 01/12/19 21:00 Constitutional: Yes: No Distress Cardiovascular: Yes: Regular Rate and Rhythm Respiratory: Yes: CTA Bilaterally Gastrointestinal: Yes: Soft Edema: No Neurological: Yes: Alert, Oriented ...Motor Strength: WNL Labs: CBC, BMP 01/10/19 07:27 01/13/19 06:21 INR, PTT INR 1.09 (0.83-1.09) 01/05/19 11:45 Assessment/Plan echo 12/2018: tds; nl lv, rv tds, mild tr, rvsp 40-50 echo 08/2015: nl lv/rv, no sig valve path cxr: left lower lobe consolidation and eff ecg: sr, no ischemic changes a/p: 68 f hx cad s/p elective cabg (was just dc about a week ago from [facility]) , asthma, hld, htn, dm, here with sob. 1.Moderate pleural effusions, ? 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 trop borderline elevated with flat trend and nl ck, likely not acs -Cont home meds 3. HTN: - resistant HTN with severe lability in response to anxiety/stress - bp's here mostly 140s-160s (which is her baseline), at times variable - cont same meds for now 4. Anemia: -likely related to recent surgery, improved now 5. HLD: -cont statin 6. Palpitations: ?sinus tach secondary to nebs? -Check Holter
--- NOTE | 2019-01-13 14:11 | PN ---
Progress Note (short form) - Note Progress Note: PULMONARY Breathing slowly improving. Feels palpitations with albuterol or symbicort. Vital Signs Period Temp Pulse Resp BP Sys/Levi Pulse Ox Last 24 Hr 98.1 F-98.9 F 77-107 18-20 140-165/52-70 96 Gen: NAD at rest Heart: RRR Lung: scattered basilar rales Abd: soft, nontender Ext: LLE edema CBC, BMP 01/10/19 07:27 01/13/19 06:21 Active Medications Acetaminophen (Tylenol -) 1,000 mg PO Q6H PRN PRN Reason: PAIN LEVEL 6-10 Last Admin: 01/11/19 14:35 Dose: 1,000 mg Albuterol/Ipratropium (Duoneb -) 1 amp NEB Q4H PRN PRN Reason: SHORTNESS OF BREATH Last Admin: 01/13/19 07:35 Dose: 1 amp Alprazolam (Xanax -) 0.5 mg PO HS PRN PRN Reason: ANXIETY Last Admin: 01/12/19 21:34 Dose: 0.5 mg Amlodipine Besylate (Norvasc -) 10 mg PO DAILY [facility] Last Admin: 01/13/19 10:16 Dose: 10 mg Atorvastatin Calcium (Lipitor -) 80 mg PO HS [facility] Last Admin: 01/12/19 21:33 Dose: 80 mg Budesonide/Formoterol Fumarate (Symbicort 160/4.5mcg -) 2 puff IH BID [facility] Last Admin: 01/13/19 10:17 Dose: 2 inh Clopidogrel Bisulfate (Plavix -) 75 mg PO DAILY [facility] Last Admin: 01/13/19 10:16 Dose: 75 mg Furosemide (Lasix Injection -) 80 mg IVPUSH DAILY [facility] Last Admin: 01/13/19 10:16 Dose: 80 mg Heparin Sodium (Porcine) (Heparin -) 5,000 unit SQ TID [facility] Last Admin: 01/13/19 13:40 Dose: 5,000 unit Insulin Aspart (Novolog Vial Sliding Scale -) 1 vial SQ TIDAC [facility]; Protocol Last Admin: 01/13/19 12:02 Dose: 4 units Insulin Detemir (Levemir Vial) 40 units SQ AM [facility] Last Admin: 01/13/19 06:05 Dose: 40 units Isosorbide Mononitrate (Imdur -) 60 mg PO DAILY [facility] Last Admin: 01/13/19 10:16 Dose: 60 mg Metoprolol Succinate (Toprol Xl -) 100 mg PO DAILY [facility] Last Admin: 01/13/19 10:15 Dose: 100 mg Montelukast Sodium (Singulair -) 10 mg PO HS [facility] Last Admin: 01/12/19 21:33 Dose: 10 mg Pantoprazole Sodium (Protonix -) 40 mg PO DAILY [facility] Last Admin: 01/13/19 10:16 Dose: 40 mg A/P r/o Pneumonia Atelectasis CAD s/p recent CABG 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
[2019-01-13] MEDS: MONTELUKAST NA 10 MG TABLET PO SCH (21:22)
[2019-01-13] MEDS: ATORVASTATIN CA 80 MG TABLET (FP) PO SCH (21:22)
[2019-01-13] MEDS: ACETAMINOPHEN 500 MG TABLET (FP) PO PRN (21:23)
[2019-01-13] MEDS: ALPRAZolam 0.25 MG TABLET PO PRN (21:27)
[2019-01-14] MEDS ORDERED: guaiFENesin/D-METHORPHAN HB 10 ML UNIT-DOSE CUPS PO ONE (00:59)
[2019-01-14] MEDS: ALBUTEROL SO4 2.5/IPRATROPIUM 0.5 INH SOL 3 ML VIAL.NEB. NEB PRN ×3 (01:20→11:12)
[2019-01-14] MEDS: HEPARIN NA (PORCINE) 5,000 UNITS/ML 1ML VIAL SQ SCH ×3 (06:26→21:43)
[2019-01-14] MEDS: INSULIN SLIDING SCALE (NOVOLOG) 1 VIAL SQ SCH ×3 (07:00→16:53)
[2019-01-14] MEDS: INSULIN (LEVEMIR) 100 UNITS/ML UNITS SQ SCH (07:00)
[2019-01-14 08:21] LABS: BLOOD UREA NITROGEN 22.8 mg/dL (7-18); CALCIUM 8.6 mg/dL (8.5-10.1); PHOSPHOROUS 3.5 mg/dL (2.5-4.9); POTASSIUM 3.7 mmol/L (3.5-5.1)
[2019-01-14] MEDS: ISOSORBIDE MONONITRATE 60 MG TAB.SR.24H (FP) PO SCH (09:35)
[2019-01-14] MEDS: CLOPIDOGREL BISULFATE 75 MG TABLET (FP) PO SCH (09:35)
[2019-01-14] MEDS: PANTOPRAZOLE 40 MG TABLET (FP) PO SCH (09:35)
[2019-01-14] MEDS: FUROSEMIDE 40 MG/4 ML INJECTABLE VIAL IVPUSH SCH (09:35)
[2019-01-14] MEDS: amLODIPine BESYLATE 10 MG TABLET (FP) PO SCH (09:35)
--- NOTE | 2019-01-14 10:19 | PN ---
Progress Note (short form) - Note Progress Note: PULMONARY Had a bad night with respiratory distress. Improved with nebulizer treatment. Feels chest tightness and now with cough productive of yellow sputum. No fevers. Vital Signs Period Temp Pulse Resp BP Sys/Levi Pulse Ox Last 24 Hr 98.3 F-99.2 F 77-97 18-20 133-146/55-90 96 Gen: NAD at rest Heart: RRR Lung: poor air entry, decreased breath sounds left base Abd: soft, nontender Ext: LLE edema CBC, BMP 01/10/19 07:27 01/14/19 07:30 Active Medications Acetaminophen (Tylenol -) 1,000 mg PO Q6H PRN PRN Reason: PAIN LEVEL 6-10 Last Admin: 01/13/19 21:23 Dose: 1,000 mg Albuterol/Ipratropium (Duoneb -) 1 amp NEB Q4H PRN PRN Reason: SHORTNESS OF BREATH Last Admin: 01/14/19 06:45 Dose: 1 amp Alprazolam (Xanax -) 0.5 mg PO HS PRN PRN Reason: ANXIETY Last Admin: 01/13/19 21:27 Dose: 0.5 mg Amlodipine Besylate (Norvasc -) 10 mg PO DAILY [facility] Last Admin: 01/14/19 09:35 Dose: 10 mg Atorvastatin Calcium (Lipitor -) 80 mg PO HS [facility] Last Admin: 01/13/19 21:22 Dose: 80 mg Clopidogrel Bisulfate (Plavix -) 75 mg PO DAILY [facility] Last Admin: 01/14/19 09:35 Dose: 75 mg Furosemide (Lasix Injection -) 80 mg IVPUSH DAILY [facility] Last Admin: 01/14/19 09:35 Dose: 80 mg Guaifenesin/Codeine Phosphate (Robitussin Ac -) 5 ml PO TID [facility] Heparin Sodium (Porcine) (Heparin -) 5,000 unit SQ TID [facility] Last Admin: 01/14/19 06:26 Dose: 5,000 unit Insulin Aspart (Novolog Vial Sliding Scale -) 1 vial SQ TIDAC [facility]; Protocol Last Admin: 01/14/19 07:00 Dose: 6 units Insulin Detemir (Levemir Vial) 40 units SQ AM [facility] Last Admin: 01/14/19 07:00 Dose: 40 units Isosorbide Mononitrate (Imdur -) 60 mg PO DAILY [facility] Last Admin: 01/14/19 09:35 Dose: 60 mg Metoprolol Succinate (Toprol Xl -) 100 mg PO DAILY [facility] Last Admin: 01/14/19 09:35 Dose: 100 mg Montelukast Sodium (Singulair -) 10 mg PO HS [facility] Last Admin: 01/13/19 21:22 Dose: 10 mg Pantoprazole Sodium (Protonix -) 40 mg PO DAILY [facility] Last Admin: 01/14/19 09:35 Dose: 40 mg A/P r/o Pneumonia Atelectasis CAD s/p recent CABG 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
[2019-01-14] MEDS: methylPREDNISolone NA SUCC 40 MG/1 ML VIAL IVPUSH SCH ×2 (11:28→17:07)
--- NOTE | 2019-01-14 11:59 | PN ---
Physical Exam: SUBJECTIVE: Patient seen and examined at bedside. Worsening cough productive of yellow sputum overnight, more discomfort with respiration OBJECTIVE: Vital Signs Period Temp Pulse Resp BP Sys/Levi Pulse Ox Last 24 Hr 98.3 F-99.2 F 77-97 18-20 133-146/55-90 96 GENERAL: AOX3 NAD HEENT: NCAT, PERRRLA, EOMI, sclera anicteric, conjunctiva clear. oropharynx clear without exudates. MMM NECK: supple without lymphadenopathy, JVD, or masses. Chest: incision post CABG, clean/dry, TTP L breast/chest area, +2x2cm soft nontender non-erythematous mobile L axial lymph node LUNGS: decreased breath sounds on the L, rhoncorous, coarse crackles HEART: RRR, normal S1 and S2 without murmur, rub or gallop. ABDOMEN: Soft, NTND, normoactive bowel sounds, no guarding, no rebound, no masses. LOWER EXTREMITIES: 2+ pulses, warm, well-perfused. LLE trace edema. NEUROLOGICAL: Cranial nerves II-XII intact. Normal speech. Laboratory Results - last 24 hr 01/13/19 01/13/19 01/13/19 11:58 17:48 20:56 Sodium Potassium Chloride Carbon Dioxide Anion Gap BUN Creatinine Est GFR (CKD-EPI)AfAm Est GFR (CKD-EPI)NonAf POC Glucometer 247 200 247 Random Glucose Calcium Phosphorus Magnesium 01/14/19 01/14/19 01/14/19 06:25 07:30 11:32 Sodium 142 Potassium 3.7 Chloride 109 H Carbon Dioxide 27 Anion Gap 6 L BUN 22.8 H Creatinine 1.0 Est GFR (CKD-EPI)AfAm 66.57 Est GFR (CKD-EPI)NonAf 57.44 POC Glucometer 253 288 Random Glucose 274 H Calcium 8.6 Phosphorus 3.5 Magnesium 2.0 Active Medications Generic Name Dose Route Start Last Admin Trade Name Freq PRN Reason Stop Dose Admin Acetaminophen 1,000 mg 01/07/19 23:30 01/13/19 21:23 Tylenol - PO 1,000 mg Q6H PRN Administration PAIN LEVEL 6-10 Albuterol/Ipratropium 1 amp 01/07/19 23:30 01/14/19 11:12 Duoneb - NEB 1 amp Q4H PRN Administration SHORTNESS OF BREATH Alprazolam 0.5 mg 01/07/19 23:30 01/13/19 21:27 Xanax - PO 0.5 mg HS PRN Administration ANXIETY Amlodipine Besylate 10 mg 01/10/19 11:13 01/14/19 09:35 Norvasc - PO 10 mg DAILY JAMEL Administration Atorvastatin Calcium 80 mg 01/08/19 22:00 01/13/19 21:22 Lipitor - PO 80 mg HS JAMEL Administration Clopidogrel Bisulfate 75 mg 01/08/19 10:00 01/14/19 09:35 Plavix - PO 75 mg DAILY [facility] Administration Furosemide 80 mg 01/11/19 12:45 01/14/19 09:35 Lasix Injection - IVPUSH 80 mg DAILY [facility] Administration Guaifenesin/Codeine Phosphate 5 ml 01/14/19 14:00 Robitussin Ac - PO TID [facility] Heparin Sodium (Porcine) 5,000 unit 01/08/19 06:00 01/14/19 06:26 Heparin - SQ 5,000 unit TID [facility] Administration Insulin Aspart 1 vial 01/08/19 07:00 01/14/19 11:34 Novolog Vial Sliding Scale - SQ 6 units TIDAC [facility] Administration Protocol Insulin Detemir 40 units 01/12/19 07:00 01/14/19 07:00 Levemir Vial SQ 40 units AM [facility] Administration Isosorbide Mononitrate 60 mg 01/13/19 10:00 01/14/19 09:35 Imdur - PO 60 mg DAILY [facility] Administration Levalbuterol HCl 0.63 mg 01/14/19 14:00 Xopenex IH RTID [facility] Methylprednisolone Sodium Succinate 40 mg 01/14/19 10:30 01/14/19 11:28 Solu-Medrol - IVPUSH 40 mg Q8H-IV J[facility]EL Administration Metoprolol Succinate 100 mg 01/08/19 10:00 01/14/19 09:35 Toprol Xl - PO 100 mg DAILY [facility] Administration Montelukast Sodium 10 mg 01/08/19 22:00 01/13/19 21:22 Singulair - PO 10 mg HS J[facility]EL Administration Pantoprazole Sodium 40 mg 01/08/19 10:00 01/14/19 09:35 Protonix - PO 40 mg DAILY [facility] Administration ASSESSMENT/PLAN: 68 yo F with a PMHx of HTN, DM, CAD (s/p recent CABG 12/24), Asthma, presented to the ED with worsening SOB since her hospitalization @ [facility] on 12/24 for a CABG. #Acute hypoxic Respiratory Failure 2/2 b/l pleural effusions - resolving. afebrile. based on echo and CT findings unclear if effusions are 2/2 dCHF vs sepsis 2/2 LLL PNA vs post op inflammatory changes from recent CABG. -CXR w/ consolidation, pleural effusion -s/p Vanc/zosyn in ED -Leukocytosis resolved -ID consulted: Dr. Adams -bcx, legionella, MRSA screen, sputum cx neg -patient recently hospitalized for 5 days. -Completed ABx -duonebs PRN -c/w IV Lasix 80 qd as per cardio recs -CXR today unchanged from prior with fluid in horizontal fissure -pulm consulted, Rosanna, for noted pleural effusion. -cardio consulted, Ariana -started on Solumedrol 40q8 per pulmonology -ESR 73, CRP 1.8 -D-Dimer is elevated -CTA reviewed above, neg for PE, mod b/l effusions L>R -had pre-/post- evaluation, desats to 88, qualifies for home O2 2L upon discharge #CAD s/p CABG (12/24) -c/w Plavix, Toprol, imdur, norvasc, Lipitor 80 -patient allergic to ASA -troponins downtrended -echo reviewed above, nl EF, elevated RVP #Anemia - hgb 7.8 likely from recent CABG. -hgb 9.8...9.4...9.6, H/H stable -Transfuse PRN to keep Hgb >8, s/p 1 unit pRBC total so far -monitor H/H #L breast pain w/ small 2x2cm L axial lymph node - soft nontender non- erythematous mobile. breast pain and lymph node likely 2/2 post op pain 2/2 recent CABG. no signs of inx. -pt will need to f/u outpt in 1 mo for monitoring of lymph node. -last mammo in 04/14 nl -pain ctl tylenol/tramadol #L adrenal gland enlargement - noted on CT -will f/u as outpt #vaginal yeast infx - itchy white discharge diflucan 150mg x1 on 01/07/19. will redose if no improvement after 72 hr #LLE edema - U/S neg for DVT #HTN - -increased imdur 30 to 60mg qd for noted HTN overnight -c/w increased dose of norvasc 10mg -toprol 100mg #Asthma -not in exacerbation -Duoneb PRN -cont home Singulair 10mg Daily #DM -A1c 7.0 -hold home meds -BGM -uses insulin pump at home, basal rate (~ 45U/d) -c/w levemir 40U HS and increase prn -ISS #FEN -no IV fluids needed -monitor lytes -diabetic diet #ppx -SQH -home protonix 40 qd Dispo med-surg Visit type - Emergency Visit Emergency Visit: No - New Patient This patient is new to me today: No - Critical Care Critical Care patient: No
[2019-01-14 13:05] LABS: BASO % 0.7 % (0-2.0); EOS % 1.2 % (0-4.5); HEMATOCRIT 31.2 % (32.4-45.2); HEMOGLOBIN 10.2 GM/dL (10.7-15.3); LYMPH % 9.3 % (8-40); MCH 27.7 pg (25.7-33.7); MCHC 32.8 g/dl (32.0-36.0); MEAN CELL VOLUME 84.4 fl (80-96); MEAN PLT VOLUME 8.6 fl (7.5-11.1); MONO % 3.8 % (3.8-10.2); PLATELET COUNT 295 K/MM3 (134-434); RDW 14.6 % (11.6-15.6); WHITE BLOOD COUNT 8.1 K/mm3 (4.0-10.0)
[2019-01-14] MEDS ORDERED: PT OWN MED DRAWER 7, Y5N ONE (13:59)
[2019-01-14] MEDS: guaiFENesin/CODEINE 5 ML UNIT-DOSE CUPS PO SCH ×2 (14:04→21:43)
[2019-01-14] MEDS: LEVALBUTEROL HCL 0.63 MG/3 ML VIAL.NEB. IH SCH ×2 (14:11→20:21)
--- NOTE | 2019-01-14 16:30 | PN ---
Progress Note (short form) - Note Progress Note: s: shortness of breath overnight, improved with nebs. no chest pain, palps, dizziness - Objective Vital Signs: Vital Signs Period Temp Pulse Resp BP Sys/Levi Pulse Ox Last 24 Hr 98.2 F-99.2 F 77-97 18-20 139-162/55-90 96-96 Constitutional: Yes: No Distress Cardiovascular: Yes: Regular Rate and Rhythm Respiratory: Yes: CTA Bilaterally Gastrointestinal: Yes: Soft Edema: No Neurological: Yes: Alert, Oriented ...Motor Strength: WNL not agitated no jaundice, diaphoresis Assessment/Plan echo 12/2018: tds; nl lv, rv tds, mild tr, rvsp 40-50 echo 08/2015: nl lv/rv, no sig valve path cxr: left lower lobe consolidation and eff ecg: sr, no ischemic changes a/p: 68 f hx cad s/p elective cabg (was just dc about a week ago from [facility]) , asthma, hld, htn, dm, here with sob. 1.Moderate pleural effusions, ? 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 trop borderline elevated with flat trend and nl ck, likely not acs -Cont home meds 3. HTN: - resistant HTN with severe lability in response to anxiety/stress - bp's here mostly 140s-160s (which is her baseline), at times variable - cont same meds for now 4. Anemia: -likely related to recent surgery, improved now 5. HLD: -cont statin 6. Palpitations: ?sinus tach secondary to nebs? -Check Holter
--- NOTE | 2019-01-14 18:14 | PN ---
Teaching Attending Note Name of Resident: Misael Parks ATTENDING PHYSICIAN STATEMENT I saw and evaluated the patient. I reviewed the resident's note and discussed the case with the resident. I agree with the resident's findings and plan as documented. SUBJECTIVE: Patient is feeling better, but c/o having dry cough. OBJECTIVE: Vital Signs Temperature 98.2 F 01/14/19 09:00 Pulse Rate 89 01/14/19 09:00 Respiratory Rate 20 01/14/19 09:00 Blood Pressure 162/82 01/14/19 09:00 O2 Sat by Pulse Oximetry (%) 96 01/14/19 09:00 Initial Vital Signs Temp Pulse Resp BP Pulse Ox 98.6 F 71 16 164/67 93 L 01/05/19 11:08 01/05/19 11:08 01/05/19 11:08 01/05/19 11:08 01/05/19 11:08 GENERAL: The patient is awake, alert, and fully oriented, in no acute distress. on 2liter nc HEAD: Normal with no signs of trauma. EYES: PERRL, extraocular movements intact, sclera anicteric, conjunctiva clear. ENT: Ears normal, oropharynx clear without exudates, moist mucous membranes. NECK: Trachea midline, full range of motion, supple. LUNGS: decreased BS bl , clear to auscultation bilaterally, no wheezes, no crackles, no accessory muscle use. HEART: tachycardic due to nebs. S1, S2 without murmur, rub or gallop. ABDOMEN: Soft, nontender, nondistended, normoactive bowel sounds, no guarding, no rebound, no hepatosplenomegaly, no masses. EXTREMITIES: 2+ pulses, warm, well-perfused, no edema. NEUROLOGICAL: Cranial nerves II through XII grossly intact. Normal speech, gait not observed. PSYCH: Normal mood, normal affect. SKIN: Warm, dry, normal turgor, no rashes or lesions noted CBCD WBC 8.1 K/mm3 (4.0-10.0) 01/14/19 12:30 RBC 3.70 M/mm3 (3.60-5.2) 01/14/19 12:30 Hgb 10.2 GM/dL (10.7-15.3) L 01/14/19 12:30 Hct 31.2 % (32.4-45.2) L 01/14/19 12:30 MCV 84.4 fl (80-96) 01/14/19 12:30 MCHC 32.8 g/dl (32.0-36.0) 01/14/19 12:30 RDW 14.6 % (11.6-15.6) 01/14/19 12:30 Plt Count 295 K/MM3 (134-434) D 01/14/19 12:30 MPV 8.6 fl (7.5-11.1) D 01/14/19 12:30 CMP Sodium 142 mmol/L (136-145) 01/14/19 07:30 Potassium 3.7 mmol/L (3.5-5.1) 01/14/19 07:30 Chloride 109 mmol/L (98-107) H 01/14/19 07:30 Carbon Dioxide 27 mmol/L (21-32) 01/14/19 07:30 Anion Gap 6 MMOL/L (8-16) L 01/14/19 07:30 BUN 22.8 mg/dL (7-18) H 01/14/19 07:30 Creatinine 1.0 mg/dL (0.55-1.3) 01/14/19 07:30 Random Glucose 274 mg/dL (74-106) H 01/14/19 07:30 Calcium 8.6 mg/dL (8.5-10.1) 01/14/19 07:30 Total Bilirubin 0.4 mg/dL (0.2-1) 01/07/19 07:50 AST 19 U/L (15-37) 01/07/19 07:50 ALT 44 U/L (13-61) 01/07/19 07:50 Alkaline Phosphatase 94 U/L (45-117) 01/07/19 07:50 Total Protein 6.4 g/dl (6.4-8.2) 01/07/19 07:50 Albumin 3.0 g/dl (3.4-5.0) L 01/07/19 07:50 CARDIAC ENZYMES Creatine Kinase 97 U/L (26-192) 01/05/19 20:20 Troponin I 0.06 ng/ml (0.00-0.05) H 01/06/19 17:40 Current Medications Generic Name Dose Route Start Last Admin Trade Name Freq PRN Reason Stop Dose Admin Acetaminophen 1,000 mg 01/07/19 23:30 01/13/19 21:23 Tylenol - PO 1,000 mg Q6H PRN Administration PAIN LEVEL 6-10 Albuterol/Ipratropium 1 amp 01/07/19 23:30 01/14/19 11:12 Duoneb - NEB 1 amp Q4H PRN Administration SHORTNESS OF BREATH Amlodipine Besylate 10 mg 01/10/19 11:13 01/14/19 09:35 Norvasc - PO 10 mg DAILY JAMEL Administration Atorvastatin Calcium 80 mg 01/08/19 22:00 01/13/19 21:22 Lipitor - PO 80 mg HS JAMEL Administration Clopidogrel Bisulfate 75 mg 01/08/19 10:00 01/14/19 09:35 Plavix - PO 75 mg DAILY JAMEL Administration Furosemide 80 mg 01/11/19 12:45 01/14/19 09:35 Lasix Injection - IVPUSH 80 mg DAILY JAMEL Administration Guaifenesin/Codeine Phosphate 5 ml 01/14/19 14:00 01/14/19 14:04 Robitussin Ac - PO 5 ml TID [facility] Administration Heparin Sodium (Porcine) 5,000 unit 01/08/19 06:00 01/14/19 14:04 Heparin - SQ 5,000 unit TID [facility] Administration Insulin Aspart 1 vial 01/08/19 07:00 01/14/19 16:53 Novolog Vial Sliding Scale - SQ 6 units TIDAC [facility] Administration Protocol Insulin Detemir 40 units 01/12/19 07:00 01/14/19 07:00 Levemir Vial SQ 40 units AM JAMEL Administration Isosorbide Mononitrate 60 mg 01/13/19 10:00 01/14/19 09:35 Imdur - PO 60 mg DAILY JAMEL Administration Levalbuterol HCl 0.63 mg 01/14/19 14:00 01/14/19 14:11 Xopenex IH 0.63 mg RTID JAMEL Administration Methylprednisolone Sodium Succinate 40 mg 01/14/19 10:30 01/14/19 17:07 Solu-Medrol - IVPUSH 40 mg Q8H-IV JAMEL Administration Metoprolol Succinate 100 mg 01/08/19 10:00 01/14/19 09:35 Toprol Xl - PO 100 mg DAILY JAMEL Administration Montelukast Sodium 10 mg 01/08/19 22:00 01/13/19 21:22 Singulair - PO 10 mg HS JAMEL Administration Pantoprazole Sodium 40 mg 01/08/19 10:00 01/14/19 09:35 Protonix - PO 40 mg DAILY JAMEL Administration Home Medications Medication Instructions Recorded Albuterol Sulfate Inhaler - 1 - 2 inh IH DAILY PRN 09/28/12 [Ventolin HFA Inhaler -] Alprazolam [Xanax] 0.5 mg PO HS PRN 09/28/12 Insulin Regular, Human [Humulin R] 8 unit IJ UTDICT 09/28/12 Alprazolam [Xanax] 0.5 mg PO HS 01/05/19 Amlodipine Besylate 5 mg PO DAILY 01/05/19 Atorvastatin Ca [Lipitor] 80 mg PO HS 01/05/19 Clopidogrel Bisulfate [Plavix] 75 mg PO DAILY 01/05/19 Escitalopram Oxalate [Lexapro -] 10 mg PO DAILY 01/05/19 Furosemide [Lasix -] 40 mg PO DAILY 01/05/19 Isosorbide Mononitrate [Isosorbide 30 mg PO DAILY 01/05/19 Mononitrate ER] Metoprolol Succinate 100 mg PO DAILY 01/05/19 Montelukast Na [Singulair -] 10 mg PO HS 01/05/19 Oxycodone HCl/Acetaminophen 1 - 2 tab PO Q4H 01/05/19 [Percocet 5-325 mg Tablet] Pantoprazole Sodium 40 mg PO DAILY 01/05/19 ASSESSMENT AND PLAN: Patient is a 68yo female with PMHx of CAD s/p CABG 12/24/18, HTN, HLP, DM who presented with worsening SOB and hypoxia. #Acute SOB/ hypoxia, due to possible left base PNA/atelectasis with b/l pleural effusions. 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 continue levemir 40, cont SSI # HTN: cont norvasc at 10 and metorpolol , increased imdur to 60 # CAD, s/p CABG: cont plavix. ASA on hold , cont torpol, imdur, norvasc, and statin. will ask card if asa is to be resumed. # L axillary lymph node enlargement: f/u as out pt . # L adrenal gland enlargement on CT: f/u as out pt # L leg edema, US neg DVT px: heparin Sq possible dc in am
[2019-01-14] MEDS: MONTELUKAST NA 10 MG TABLET PO SCH (21:43)
[2019-01-14] MEDS: ATORVASTATIN CA 80 MG TABLET (FP) PO SCH (21:43)
[2019-01-15] MEDS: methylPREDNISolone NA SUCC 40 MG/1 ML VIAL IVPUSH SCH ×3 (01:35→18:03)
[2019-01-15] MEDS: ALBUTEROL SO4 2.5/IPRATROPIUM 0.5 INH SOL 3 ML VIAL.NEB. NEB PRN (03:25)
[2019-01-15] MEDS: guaiFENesin/CODEINE 5 ML UNIT-DOSE CUPS PO SCH ×3 (05:12→21:30)
[2019-01-15] MEDS: HEPARIN NA (PORCINE) 5,000 UNITS/ML 1ML VIAL SQ SCH ×3 (05:12→21:30)
[2019-01-15] MEDS: INSULIN SLIDING SCALE (NOVOLOG) 1 VIAL SQ SCH ×5 (07:03→21:28)
[2019-01-15] MEDS: INSULIN (LEVEMIR) 100 UNITS/ML UNITS SQ SCH (07:04)
[2019-01-15] MEDS: LEVALBUTEROL HCL 0.63 MG/3 ML VIAL.NEB. IH SCH ×3 (07:20→20:22)
--- NOTE | 2019-01-15 07:54 | PN ---
Physical Exam: SUBJECTIVE: Patient seen and examined at bedside. no acute events overnight. L side chest discomfort and breathing, improved. denies fever, chills, sob, n/v/d , urinary sxs OBJECTIVE: Vital Signs Period Temp Pulse Resp BP Sys/Levi Pulse Ox Last 24 Hr 98 F-98.8 F 80-99 18-20 130-162/60-82 96-96 GENERAL: AOX3 NAD HEENT: NCAT, PERRRLA, EOMI, sclera anicteric, conjunctiva clear. oropharynx clear without exudates. MMM NECK: supple without lymphadenopathy, JVD, or masses. Chest: incision post CABG, clean/dry, TTP L breast/chest area, +2x2cm soft nontender non-erythematous mobile L axial lymph node LUNGS: decreased breath sounds on the L, rhoncorous, coarse crackles HEART: RRR, normal S1 and S2 without murmur, rub or gallop. ABDOMEN: Soft, NTND, normoactive bowel sounds, no guarding, no rebound, no masses. LOWER EXTREMITIES: 2+ pulses, warm, well-perfused. 1+ b/l pitting edema. NEUROLOGICAL: Cranial nerves II-XII intact. Normal speech. Laboratory Results - last 24 hr 01/14/19 01/14/19 01/14/19 07:30 11:32 12:30 WBC 8.1 RBC 3.70 Hgb 10.2 L Hct 31.2 L MCV 84.4 MCH 27.7 MCHC 32.8 RDW 14.6 Plt Count 295 D MPV 8.6 D Absolute Neuts (auto) 6.9 Neutrophils % 85.0 H Lymphocytes % 9.3 D Monocytes % 3.8 Eosinophils % 1.2 Basophils % 0.7 Nucleated RBC % 0 Sodium 142 Potassium 3.7 Chloride 109 H Carbon Dioxide 27 Anion Gap 6 L BUN 22.8 H Creatinine 1.0 Est GFR (CKD-EPI)AfAm 66.57 Est GFR (CKD-EPI)NonAf 57.44 POC Glucometer 288 Random Glucose 274 H Calcium 8.6 Phosphorus 3.5 Magnesium 2.0 01/14/19 01/14/19 01/15/19 16:52 21:13 05:18 WBC RBC Hgb Hct MCV MCH MCHC RDW Plt Count MPV Absolute Neuts (auto) Neutrophils % Lymphocytes % Monocytes % Eosinophils % Basophils % Nucleated RBC % Sodium Potassium Chloride Carbon Dioxide Anion Gap BUN Creatinine Est GFR (CKD-EPI)AfAm Est GFR (CKD-EPI)NonAf POC Glucometer 257 243 376 Random Glucose Calcium Phosphorus Magnesium Active Medications Generic Name Dose Route Start Last Admin Trade Name Freq PRN Reason Stop Dose Admin Acetaminophen 1,000 mg 01/07/19 23:30 01/13/19 21:23 Tylenol - PO 1,000 mg Q6H PRN Administration PAIN LEVEL 6-10 Albuterol/Ipratropium 1 amp 01/07/19 23:30 01/15/19 03:25 Duoneb - NEB 1 amp Q4H PRN Administration SHORTNESS OF BREATH Amlodipine Besylate 10 mg 01/10/19 11:13 01/14/19 09:35 Norvasc - PO 10 mg DAILY JAMEL Administration Atorvastatin Calcium 80 mg 01/08/19 22:00 01/14/19 21:43 Lipitor - PO 80 mg HS JAMEL Administration Clopidogrel Bisulfate 75 mg 01/08/19 10:00 01/14/19 09:35 Plavix - PO 75 mg DAILY JAMEL Administration Furosemide 80 mg 01/11/19 12:45 01/14/19 09:35 Lasix Injection - IVPUSH 80 mg DAILY JAMEL Administration Guaifenesin/Codeine Phosphate 5 ml 01/14/19 14:00 01/15/19 05:12 Robitussin Ac - PO 5 ml TID [facility] Administration Heparin Sodium (Porcine) 5,000 unit 01/08/19 06:00 01/15/19 05:12 Heparin - SQ 5,000 unit TID JAMEL Administration Insulin Aspart 1 vial 01/08/19 07:00 01/15/19 07:03 Novolog Vial Sliding Scale - SQ 10 units TIDAC [facility] Administration Protocol Insulin Detemir 40 units 01/12/19 07:00 01/15/19 07:04 Levemir Vial SQ 40 units AM JAMEL Administration Isosorbide Mononitrate 60 mg 01/13/19 10:00 01/14/19 09:35 Imdur - PO 60 mg DAILY JAMEL Administration Levalbuterol HCl 0.63 mg 01/14/19 14:00 01/14/19 20:21 Xopenex IH 0.63 mg RTID JAMEL Administration Methylprednisolone Sodium Succinate 40 mg 01/14/19 10:30 06/21/19 01:35 Solu-Medrol - IVPUSH 40 mg Q8H-IV JAMEL Administration Metoprolol Succinate 100 mg 01/08/19 10:00 01/14/19 09:35 Toprol Xl - PO 100 mg DAILY JAMEL Administration Montelukast Sodium 10 mg 01/08/19 22:00 01/14/19 21:43 Singulair - PO 10 mg HS JAMEL Administration Pantoprazole Sodium 40 mg 01/08/19 10:00 01/14/19 09:35 Protonix - PO 40 mg DAILY JAMEL Administration ASSESSMENT/PLAN: 68 yo F with a PMHx of HTN, DM, CAD (s/p recent CABG 12/24), Asthma, presented to the ED with worsening SOB since her hospitalization @ [facility] on 12/24 for a CABG. #Acute hypoxic Respiratory Failure 2/2 b/l pleural effusions - resolving. afebrile. based on echo and CT findings unclear if effusions are 2/2 dCHF vs sepsis 2/2 LLL PNA vs post op inflammatory changes from recent CABG. -CXR w/ consolidation, pleural effusion -s/p Vanc/zosyn in ED -Leukocytosis resolved -ID consulted: Dr. Adams -bcx, legionella, MRSA screen, sputum cx neg -Completed ABx -duonebs PRN -c/w IV Lasix 80 qd as per cardio recs -CXR w/ improvement over the last 3 days -pulm consulted, Rosanna, for noted pleural effusion. -cardio consulted, Ginelli -tapering Solumedrol per pulmonology -c/w robitussin for cough -ESR 73, CRP 1.8 -D-Dimer is elevated -CTA reviewed above, neg for PE, mod b/l effusions L>R -had pre-/post- evaluation, desats to 88, qualifies for home O2 2L upon discharge -at this point no need for rpt CT as unlikely to currency exchange specialist #KARON? - (baseline 1.2-1.3) cr 1.4 possibly 2/2 lasix vs dCHF, will monitor consider renal consult if Cr worsens #CAD s/p CABG (12/24) -c/w Plavix, Toprol, imdur, norvasc, Lipitor 80 -patient allergic to ASA -troponins downtrended -echo reviewed above, nl EF, elevated RVP #Anemia - hgb 7.8 likely from recent CABG. -hgb 9.8...9.4...9.6, H/H stable -Transfuse PRN to keep Hgb >8, s/p 1 unit pRBC total so far -monitor H/H #L breast pain w/ small 2x2cm L axial lymph node - soft nontender non- erythematous mobile. breast pain and lymph node likely 2/2 post op pain 2/2 recent CABG. no signs of inx. -pt will need to f/u outpt in 1 mo for monitoring of lymph node. -last mammo in 04/14 nl -pain ctl tylenol/tramadol #L adrenal gland enlargement - noted on CT -will f/u as outpt #vaginal yeast infx - itchy white discharge diflucan 150mg x1 on 01/07/19. will redose if no improvement after 72 hr #LLE edema - U/S neg for DVT #HTN - -c/w increased dose of imdur 60mg qd -c/w increased dose of norvasc 10mg -toprol 100mg #Asthma -not in exacerbation -Duoneb PRN -cont home Singulair 10mg Daily #DM -A1c 7.0 -hold home meds -BGM -uses insulin pump at home, basal rate (~ 45U/d) -increase levemir 40 to home dose 45U HS and increase prn -ISS #FEN -no IV fluids needed -monitor lytes -diabetic/sodium ctl diet #ppx -SQH -home protonix 40 qd Dispo med-surg Visit type - Emergency Visit Emergency Visit: Yes ED Registration Date: 01/05/19 Care time: The patient presented to the Emergency Department on the above date and was hospitalized for further evaluation of their emergent condition. - New Patient This patient is new to me today: Yes Date on this admission: 01/15/19 - Critical Care Critical Care patient: No
[2019-01-15] MEDS ORDERED: INSULIN (LEVEMIR) 100 UNITS/ML UNITS SQ SCH ×2 (07:55→22:00)
[2019-01-15 08:07] LABS: BLOOD UREA NITROGEN 41.6 mg/dL (7-18); CREATININE 1.4 mg/dL (0.55-1.3); MAGNESIUM 2.2 mg/dL (1.8-2.4); PHOSPHOROUS 4.8 mg/dL (2.5-4.9); POTASSIUM 4.3 mmol/L (3.5-5.1)
[2019-01-15] MEDS ORDERED: PT OWN MED DRAWER 7, Y5N ONE (11:07)
[2019-01-15] MEDS: amLODIPine BESYLATE 10 MG TABLET (FP) PO SCH (11:11)
[2019-01-15] MEDS: PANTOPRAZOLE 40 MG TABLET (FP) PO SCH (11:11)
[2019-01-15] MEDS: ISOSORBIDE MONONITRATE 60 MG TAB.SR.24H (FP) PO SCH (11:11)
[2019-01-15] MEDS: CLOPIDOGREL BISULFATE 75 MG TABLET (FP) PO SCH (11:11)
--- NOTE | 2019-01-15 11:31 | PN ---
Progress Note (short form) - Note Progress Note: PULMONARY AWAKE/ALERT ADMISSION WEIGHT 160/TODAY 159 SUBJECTIVE IMPROVEMENT 75% VSS/AFEBRILE GENERAL: NAD HEENT: sclera anicteric, conjunctiva clear NECK: supple without lymphadenopathy, JVD, or masses. Chest: incision post CABG, clean/dry LUNGS: reduced breath sounds and dullness to percusion left base up 1/4 lung field HEART: RRR, normal S1 and S2 without murmur, rub or gallop. s/p sternotomy ABDOMEN: Soft, NTND, normoactive bowel sounds, no guarding, no rebound, no masses. LOWER EXTREMITIES: 2+ pulses, warm, well-perfused. No peripheral edema. NEUROLOGICAL: Non-focal LABS/MEDS/NOTES/IMAGES REVIEWED CXR WITH IMPROVEMENT OVER LAST THREE DAYS IMP BILATERAL PLEURAL EFFUSIONS POST CABG LEFT GREATER THAN RIGHT ASHD ASTHMA CONTROLLED DM HTN ANEMIA BUMP IN CR WITH LASIX PLAN O2 INHALED BRONCHODILATORS TAPER STEROIDS DIURETICS TO CONTINUE ALONG WITH REDUCED FLUID INTAKE/DAILY WEIGHTS/ WILL FOLLOW Richard WEIR MD
--- NOTE | 2019-01-15 12:40 | HOL ---
Hook-up date: 2019-01-13 15:07:00 Duration: 24:00:00 Test Indications: PALPITATIONS Medications: 936550 QRS complexes 263 Ventricular ectopics which represent <1 % of total QRS comp. 01832 Supraventricular ectopics which represent 8 % of total QRS comp. * Paced QRS complexs which represent % of total QRS comp. * % of Time Classified as Noise VENTRICULAR ECTOPY 261 Isolated 3 Bigeminal Cycles 1 Couplets 0 Runs 0 Beats in Runs * Beats LONGEST at * BPM at :: -- * Beats FASTEST at * BPM at :: -- SUPRAVENTRICULAR ECTOPY 07867 Isolated 37 Couplets 2 Runs 8 Beats in Runs 4 Beats LONGEST at 177 BPM at 10:20:02 2019-01-14 4 Beats FASTEST at 177 BPM at 10:20:02 2019-01-14 HEART RATES 55 MIN at 05:44:41 2019-01-14 83 AVG 101 MAX at 08:29:37 2019-01-14 LONGEST RR 1.384 secs at 15:38:38 2019-01-13 The underlying rhythm was normal sinus with an average rate of 83bpm. There were frequent atrial premature contractions and a self limited run of atrial tachycardia at 177bpm lasting 3-4 beats. Rare ventricular premature contractions. Single ventricular couplet. No significant pauses. No diary entries/ Confirmed by MARCOS ROMERO MD ([id number]) on 01/15/2019 12:39:47 PM Referred By: CELESTINA LY DR Overread By: MARCOS ROMERO MD
[2019-01-15] MEDS: FUROSEMIDE 40 MG/4 ML INJECTABLE VIAL IVPUSH SCH (13:07)
--- NOTE | 2019-01-15 15:37 | PN ---
Progress Note (short form) - Note Progress Note: s: no cp palps dizzy; sob improving, still with cough o: Vital Signs Period Temp Pulse Resp BP Sys/Levi Pulse Ox Last 24 Hr 97.9 F-98.8 F 80-99 18-20 130-162/60-72 92-96 nad no jvd rrr s1s2 no mrg dec bs left base, nl eff aao3 no le edema, no c/c abd nt nd pos bs no jaundice diaphoresis Current Medications Generic Name Dose Route Start Last Admin Trade Name Freq PRN Reason Stop Dose Admin Acetaminophen 1,000 mg 01/07/19 23:30 01/13/19 21:23 Tylenol - PO 1,000 mg Q6H PRN Administration PAIN LEVEL 6-10 Albuterol/Ipratropium 1 amp 01/07/19 23:30 01/15/19 03:25 Duoneb - NEB 1 amp Q4H PRN Administration SHORTNESS OF BREATH Amlodipine Besylate 10 mg 01/10/19 11:13 01/15/19 11:11 Norvasc - PO 10 mg DAILY JAMEL Administration Atorvastatin Calcium 80 mg 01/08/19 22:00 01/14/19 21:43 Lipitor - PO 80 mg HS JAMEL Administration Clopidogrel Bisulfate 75 mg 01/08/19 10:00 01/15/19 11:11 Plavix - PO 75 mg DAILY JAMEL Administration Guaifenesin/Codeine Phosphate 5 ml 01/14/19 14:00 01/15/19 13:52 Robitussin Ac - PO 5 ml TID [facility]EL Administration Heparin Sodium (Porcine) 5,000 unit 01/08/19 06:00 01/15/19 13:59 Heparin - SQ 5,000 unit TID [facility] Administration Insulin Aspart 1 vial 01/08/19 07:00 01/15/19 12:09 Novolog Vial Sliding Scale - SQ 8 units TIDAC [facility] Administration Protocol Insulin Detemir 45 units 01/15/19 07:55 Levemir Vial SQ AM JAMEL Isosorbide Mononitrate 60 mg 01/13/19 10:00 01/15/19 11:11 Imdur - PO 60 mg DAILY JAMEL Administration Levalbuterol HCl 0.63 mg 01/14/19 14:00 01/15/19 07:20 Xopenex IH 0.63 mg RTID JAMEL Administration Methylprednisolone Sodium Succinate 20 mg 06/21/19 11:37 Solu-Medrol - IVPUSH Q8H-IV JAMEL Metoprolol Succinate 100 mg 01/08/19 10:00 01/15/19 11:11 Toprol Xl - PO 100 mg DAILY JAMEL Administration Montelukast Sodium 10 mg 01/08/19 22:00 01/14/19 21:43 Singulair - PO 10 mg HS JAMEL Administration Pantoprazole Sodium 40 mg 01/08/19 10:00 01/15/19 11:11 Protonix - PO 40 mg DAILY JAMEL Administration CBC, BMP 01/14/19 12:30 01/15/19 06:50 echo 12/2018: tds; nl lv, rv tds, mild tr, rvsp 40-50 echo 08/2015: nl lv/rv, no sig valve path cxr: left lower lobe consolidation and eff, right lung clear ecg: sr, no ischemic changes a/p: 68 f hx cad s/p elective cabg (was just dc about a week ago from [facility]) , asthma, hld, htn, dm, here with sob. 1.Moderate pleural effusions, ? LLL infiltrate vs compressive ATX, pleuritic back pain: -vol overload s/p CT surgery -no PE on CTA (surgery was approx 2 weeks [employer]IENT SERVICES [employer]) -no significant structural heart dz on echo -01/15: has been getting iv lasix 80 qd for several days and cxr shows no improvement in left eff/infiltrate. Bun/cr rising, will dc iv lasix as it does not appear that the effusion will improve with iv lasix. May need thoracentesis (ok to hold plavix temporarily if needed beforehand). When cr back to baseline would resume lasix 40 po qd. 2.CAD: -s/p recent cabg -no signs acs. trop borderline elevated with flat trend and nl ck, likely not acs -Cont home meds 3. HTN: - resistant HTN with severe lability in response to anxiety/stress - bp's here mostly 140s-160s (which is her baseline), at times variable - cont same meds for now 4. Anemia: -likely related to recent surgery, improved now 5. HLD: -cont statin 6. Palpitations: ?sinus tach secondary to nebs? -holter benign here
--- NOTE | 2019-01-15 16:24 | CONSULT ---
Consult Consult Specialty:: ENDOCRINE Referred by:: CELESTINA LY MD. Reason for Consultation:: DM 1 - History of Present Illness Chief Complaint: HIGH SUGARS History of Present Illness: 68 yo F with a PMHx of DM1,ON INSULIN PUMP,(pump removed since admission,) HTN, DM, CAD (s/p recent CABG 12/24), Asthma, presented to the ED with worsening SOB since her hospitalization at [facility] on 12/24 for a CABG. She has developed a cough with black/yellow sputum production 3 days into her hospitalization ( which resolved) with continued weakness,high sugars,palpitations,she has required steroids which have caused higher resistance to insulin doses.she denies nausea,vomiting or fever. - History Source History Provided By: Patient - Past Medical History Cardio/Vascular: Yes: CAD, HTN Endocrine: Yes: Diabetes Mellitus - Past Surgical History Additional Surgical History: CABG 12/24 [place] [facility] [place] - Alcohol/Substance Use Hx Alcohol Use: No - Smoking History Smoking history: Former smoker Have you smoked in the past 12 months: No Aproximately how many cigarettes per day: 0 If you are a former smoker, when did you quit?: 1992 - Social History ADL: Independent Home Medications - Allergies Allergies/Adverse Reactions: Allergies Allergy/AdvReac Type Severity Reaction Status Date / Time ibuprofen Allergy Severe Rash Verified 03/23/17 04:02 aspirin Allergy Intermediate Rash Verified 03/23/17 04:02 shellfish derived Allergy Intermediate Swelling Verified 03/23/17 04:02 - Home Medications Home Medications: Ambulatory Orders Albuterol Sulfate Inhaler - [Ventolin HFA Inhaler -] 1 - 2 inh IH DAILY PRN 11/07 Alprazolam [Xanax] 0.5 mg PO HS PRN 09/28/12 Insulin Regular, Human [Humulin R] 8 unit IJ UTDICT 09/28/12 Alprazolam [Xanax] 0.5 mg PO HS 01/05/19 Amlodipine Besylate 5 mg PO DAILY 01/05/19 Atorvastatin Ca [Lipitor] 80 mg PO HS 01/05/19 Clopidogrel Bisulfate [Plavix] 75 mg PO DAILY 01/05/19 Escitalopram Oxalate [Lexapro -] 10 mg PO DAILY 01/05/19 Furosemide [Lasix -] 40 mg PO DAILY 01/05/19 Isosorbide Mononitrate [Isosorbide Mononitrate ER] 30 mg PO DAILY 01/05/19 Metoprolol Succinate 100 mg PO DAILY 01/05/19 Montelukast Na [Singulair -] 10 mg PO HS 01/05/19 Oxycodone HCl/Acetaminophen [Percocet 5-325 mg Tablet] 1 - 2 tab PO Q4H Pantoprazole Sodium 40 mg PO DAILY 01/05/19 Review of Systems - Review of Systems Constitutional: reports: Weakness Eyes: reports: No Symptoms HENT: reports: No Symptoms Neck: reports: No Symptoms Respiratory: reports: Cough, Exercise Intolerance, Orthopnea, SOB, SOB on Exertion, Wheezing Gastrointestinal: reports: Bloating Genitourinary: reports: No Symptoms Breasts: reports: No Symptoms Reported Musculoskeletal: reports: Joint Swelling, Muscle Pain, Muscle Cramps Integumentary: reports: No Symptoms Neurological: reports: Numbness, Weakness Endocrine: reports: No Symptoms Physical Exam Vital Signs: Vital Signs Temperature 97.9 F 01/15/19 14:02 Pulse Rate 91 H 01/15/19 14:02 Respiratory Rate 18 01/15/19 14:02 Blood Pressure 162/71 01/15/19 14:02 O2 Sat by Pulse Oximetry (%) 92 L 01/15/19 09:00 Constitutional: Yes: Anxious Eyes: Yes: EOM Intact HENT: Yes: Normocephalic Neck: Yes: Trachea Midline Cardiovascular: Yes: Tachycardia, Pulse Irregular Respiratory: Yes: On Nasal O2, Tachypnea Gastrointestinal: Yes: Normal Bowel Sounds ...Rectal Exam: Yes: Deferred Renal/: Yes: WNL Musculoskeletal: Yes: WNL, Muscle Pain Extremities: Yes: WNL Edema: Yes Integumentary: Yes: Venous Stasis Changes Wound/Incision: Yes: Clean/Dry Neurological: Yes: Alert, Oriented Labs: CBC, BMP 01/14/19 12:30 01/15/19 06:50 Problem List - Problems (1) HCAP (healthcare-associated pneumonia) Code(s): J18.9 - PNEUMONIA, UNSPECIFIED ORGANISM (2) SOB (shortness of breath) Code(s): R06.02 - SHORTNESS OF BREATH (3) Asthma Code(s): J45.909 - UNSPECIFIED ASTHMA, UNCOMPLICATED (4) Diabetes Code(s): E11.9 - TYPE 2 DIABETES MELLITUS WITHOUT COMPLICATIONS (5) S/P CABG x 3 Code(s): Z95.1 - PRESENCE OF AORTOCORONARY BYPASS GRAFT (6) Hyperglycemia Code(s): R73.9 - HYPERGLYCEMIA, UNSPECIFIED (7) Low TSH level Code(s): R94.6 - ABNORMAL RESULTS OF THYROID FUNCTION STUDIES Assessment/Plan Current Active Problems DM1,INSULIN PUMP HYPERLIPIDEMIA Anemia (Acute) HCAP (healthcare-associated pneumonia) (Acute) SOB (shortness of breath) (Acute) Asthma (Chronic) S/P CABG x 3 (Chronic) Abnormal Lab Results 01/15/19 06:50 BUN 41.6 H Creatinine 1.4 H Random Glucose 354 H* Laboratory Results - last 24 hr 01/14/19 01/14/19 01/15/19 16:52 21:13 05:18 Sodium Potassium Chloride Carbon Dioxide Anion Gap BUN Creatinine Est GFR (CKD-EPI)AfAm Est GFR (CKD-EPI)NonAf POC Glucometer 257 243 376 Random Glucose Calcium Phosphorus Magnesium 01/15/19 01/15/19 06:50 12:07 Sodium 138 Potassium 4.3 Chloride 104 Carbon Dioxide 25 Anion Gap 10 BUN 41.6 H Creatinine 1.4 H Est GFR (CKD-EPI)AfAm 44.32 Est GFR (CKD-EPI)NonAf 38.24 POC Glucometer 347 Random Glucose 354 H* Calcium 9.0 Phosphorus 4.8 Magnesium 2.2 Laboratory Tests 01/06/19 01/14/19 01/14/19 06:37 11:32 16:52 Sodium Potassium Chloride Carbon Dioxide Anion Gap BUN Creatinine Est GFR (CKD-EPI)AfAm Est GFR (CKD-EPI)NonAf POC Glucometer 288 257 Random Glucose Triglycerides 442 H Cholesterol 113 Total LDL Cholesterol 46 HDL Cholesterol 25 L 01/14/19 01/15/19 01/15/19 21:13 05:18 06:50 Sodium 138 Potassium 4.3 Chloride 104 Carbon Dioxide 25 Anion Gap 10 BUN 41.6 H Creatinine 1.4 H Est GFR (CKD-EPI)AfAm 44.32 Est GFR (CKD-EPI)NonAf 38.24 POC Glucometer 243 376 Random Glucose 354 H* Triglycerides Cholesterol Total LDL Cholesterol HDL Cholesterol 01/15/19 12:07 Sodium Potassium Chloride Carbon Dioxide Anion Gap BUN Creatinine Est GFR (CKD-EPI)AfAm Est GFR (CKD-EPI)NonAf POC Glucometer 347 Random Glucose Triglycerides Cholesterol Total LDL Cholesterol HDL Cholesterol PLAN: BGM Q4HRS LEVEMIR 50UNITS AM CHK HBA1C FREE T4
--- NOTE | 2019-01-15 18:01 | PN ---
Teaching Attending Note Name of Resident: Sukhdeep Levi ATTENDING PHYSICIAN STATEMENT I saw and evaluated the patient. I reviewed the resident's note and discussed the case with the resident. I agree with the resident's findings and plan as documented. SUBJECTIVE: Patient continues to cough,feels better though, c/o lower extremity swelling. OBJECTIVE: Vital Signs Temperature 98.1 F 01/15/19 17:34 Pulse Rate 139 H 01/15/19 17:34 Respiratory Rate 20 01/15/19 17:34 Blood Pressure 124/98 01/15/19 17:34 O2 Sat by Pulse Oximetry (%) 92 L 01/15/19 09:00 GENERAL: The patient is awake, alert, and fully oriented, in no acute distress. on 2liter nc HEAD: Normal with no signs of trauma. EYES: PERRL, extraocular movements intact, sclera anicteric, conjunctiva clear. ENT: Ears normal, oropharynx clear without exudates, moist mucous membranes. NECK: Trachea midline, full range of motion, supple. LUNGS: decreased BS bl , no wheezes, no crackles, no accessory muscle use. HEART: tachycardic due to nebs. S1, S2 without murmur, rub or gallop. ABDOMEN: Soft, nontender, nondistended, normoactive bowel sounds, no guarding, no rebound, no hepatosplenomegaly, no masses. EXTREMITIES: 2+ pulses, warm, well-perfused, 2 plus edema. NEUROLOGICAL: Cranial nerves II through XII grossly intact. Normal speech, gait not observed. PSYCH: Normal mood, normal affect. SKIN: Warm, dry, normal turgor, no rashes or lesions noted CBCD WBC 8.1 K/mm3 (4.0-10.0) 01/14/19 12:30 RBC 3.70 M/mm3 (3.60-5.2) 01/14/19 12:30 Hgb 10.2 GM/dL (10.7-15.3) L 01/14/19 12:30 Hct 31.2 % (32.4-45.2) L 01/14/19 12:30 MCV 84.4 fl (80-96) 01/14/19 12:30 MCHC 32.8 g/dl (32.0-36.0) 01/14/19 12:30 RDW 14.6 % (11.6-15.6) 01/14/19 12:30 Plt Count 295 K/MM3 (134-434) D 01/14/19 12:30 MPV 8.6 fl (7.5-11.1) D 01/14/19 12:30 CMP Sodium 138 mmol/L (136-145) 01/15/19 06:50 Potassium 4.3 mmol/L (3.5-5.1) 01/15/19 06:50 Chloride 104 mmol/L (98-107) 01/15/19 06:50 Carbon Dioxide 25 mmol/L (21-32) 01/15/19 06:50 Anion Gap 10 MMOL/L (8-16) 01/15/19 06:50 BUN 41.6 mg/dL (7-18) H 01/15/19 06:50 Creatinine 1.4 mg/dL (0.55-1.3) H 01/15/19 06:50 Random Glucose 354 mg/dL (74-106) H* 01/15/19 06:50 Calcium 9.0 mg/dL (8.5-10.1) 01/15/19 06:50 Total Bilirubin 0.4 mg/dL (0.2-1) 01/07/19 07:50 AST 19 U/L (15-37) 01/07/19 07:50 ALT 44 U/L (13-61) 01/07/19 07:50 Alkaline Phosphatase 94 U/L (45-117) 01/07/19 07:50 Total Protein 6.4 g/dl (6.4-8.2) 01/07/19 07:50 Albumin 3.0 g/dl (3.4-5.0) L 01/07/19 07:50 CARDIAC ENZYMES Creatine Kinase 97 U/L (26-192) 01/05/19 20:20 Troponin I 0.06 ng/ml (0.00-0.05) H 01/06/19 17:40 Current Medications Generic Name Dose Route Start Last Admin Trade Name Freq PRN Reason Stop Dose Admin Acetaminophen 1,000 mg 01/07/19 23:30 01/13/19 21:23 Tylenol - PO 1,000 mg Q6H PRN Administration PAIN LEVEL 6-10 Albuterol/Ipratropium 1 amp 01/07/19 23:30 01/15/19 03:25 Duoneb - NEB 1 amp Q4H PRN Administration SHORTNESS OF BREATH Amlodipine Besylate 10 mg 01/10/19 11:13 01/15/19 11:11 Norvasc - PO 10 mg DAILY JAMEL Administration Atorvastatin Calcium 80 mg 01/08/19 22:00 01/14/19 21:43 Lipitor - PO 80 mg HS JAMEL Administration Clopidogrel Bisulfate 75 mg 01/08/19 10:00 01/15/19 11:11 Plavix - PO 75 mg DAILY JAMEL Administration Guaifenesin/Codeine Phosphate 5 ml 01/14/19 14:00 01/15/19 13:52 Robitussin Ac - PO 5 ml TID JAMEL Administration Heparin Sodium (Porcine) 5,000 unit 01/08/19 06:00 01/15/19 13:59 Heparin - SQ 5,000 unit TID [facility] Administration Insulin Aspart 1 vial 01/15/19 16:31 01/15/19 17:05 Novolog Vial Sliding Scale - SQ 6 units Q4H JAMEL Administration Protocol Insulin Detemir 50 units 01/15/19 16:32 Levemir Vial SQ AM JAMEL Insulin Detemir 10 units 01/15/19 22:00 Levemir Vial SQ HS [facility] Isosorbide Mononitrate 60 mg 01/13/19 10:00 01/15/19 11:11 Imdur - PO 60 mg DAILY JAMEL Administration Levalbuterol HCl 0.63 mg 01/14/19 14:00 01/15/19 15:50 Xopenex IH 0.63 mg RTID JAMEL Administration Methylprednisolone Sodium Succinate 20 mg 01/15/19 11:37 Solu-Medrol - IVPUSH Q8H-IV JAMEL Metoprolol Succinate 100 mg 01/08/19 10:00 01/15/19 11:11 Toprol Xl - PO 100 mg DAILY JAMEL Administration Montelukast Sodium 10 mg 01/08/19 22:00 01/14/19 21:43 Singulair - PO 10 mg HS JAMEL Administration Pantoprazole Sodium 40 mg 01/08/19 10:00 01/15/19 11:11 Protonix - PO 40 mg DAILY JAMEL Administration Home Medications Medication Instructions Recorded Albuterol Sulfate Inhaler - 1 - 2 inh IH DAILY PRN 09/28/12 [Ventolin HFA Inhaler -] Alprazolam [Xanax] 0.5 mg PO HS PRN 09/28/12 Insulin Regular, Human [Humulin R] 8 unit IJ UTDICT 09/28/12 Alprazolam [Xanax] 0.5 mg PO HS 01/05/19 Amlodipine Besylate 5 mg PO DAILY 01/05/19 Atorvastatin Ca [Lipitor] 80 mg PO HS 01/05/19 Clopidogrel Bisulfate [Plavix] 75 mg PO DAILY 01/05/19 Escitalopram Oxalate [Lexapro -] 10 mg PO DAILY 01/05/19 Furosemide [Lasix -] 40 mg PO DAILY 01/05/19 Isosorbide Mononitrate [Isosorbide 30 mg PO DAILY 01/05/19 Mononitrate ER] Metoprolol Succinate 100 mg PO DAILY 01/05/19 Montelukast Na [Singulair -] 10 mg PO HS 01/05/19 Oxycodone HCl/Acetaminophen 1 - 2 tab PO Q4H 01/05/19 [Percocet 5-325 mg Tablet] Pantoprazole Sodium 40 mg PO DAILY 01/05/19 Intake & Output 01/12/19 01/13/19 01/14/19 01/15/19 23:59 23:59 23:59 23:59 Intake Total 1160 1780 780 250 Output Total 1100 1700 Balance 60 80 780 250 Weight 71.214 kg 70.959 kg 71.923 kg 72.212 kg ASSESSMENT AND PLAN: Patient is a 68yo female with PMHx of CAD s/p CABG 12/24/18, HTN, HLP, DM who presented with worsening SOB and hypoxia. #Acute SOB/hypoxia, due to left base PNA/atelectasis with b/l pleural effusions. 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 continue levemir 40, cont SSI , will get dr Browne to see the patient. # HTN: cont norvasc at 10 and metorpolol , increased imdur to 60 # CAD, s/p CABG: cont plavix. ASA on hold , cont torpol, imdur, norvasc, and statin. will ask card if asa is to be resumed. # L axillary lymph node enlargement: f/u as out pt . # L adrenal gland enlargement on CT: f/u as out pt # L leg edema, US neg DVT px: heparin Sq
[2019-01-15] MEDS ORDERED: INSULIN (NOVOLOG) ASPART 100 UNITS/ML 10ML VIAL ONE (18:16)
[2019-01-15] MEDS: ATORVASTATIN CA 80 MG TABLET (FP) PO SCH (21:29)
[2019-01-15] MEDS: MONTELUKAST NA 10 MG TABLET PO SCH (21:29)
[2019-01-16] MEDS: ALBUTEROL SO4 2.5/IPRATROPIUM 0.5 INH SOL 3 ML VIAL.NEB. NEB PRN ×2 (00:19→04:25)
[2019-01-16] MEDS: BENZOCAINE/MENTH/CETYLPYRD CL 1 EACH LOZENGE MM PRN (01:09)
[2019-01-16] MEDS: methylPREDNISolone NA SUCC 40 MG/1 ML VIAL IVPUSH SCH ×2 (01:09→10:16)
[2019-01-16] MEDS: INSULIN SLIDING SCALE (NOVOLOG) 1 VIAL SQ SCH ×7 (01:09→23:47)
[2019-01-16] MEDS: guaiFENesin/CODEINE 5 ML UNIT-DOSE CUPS PO SCH (06:10)
[2019-01-16] MEDS: HEPARIN NA (PORCINE) 5,000 UNITS/ML 1ML VIAL SQ SCH ×3 (06:10→23:45)
[2019-01-16] MEDS: INSULIN (LEVEMIR) 100 UNITS/ML UNITS SQ SCH (06:10)
[2019-01-16] MEDS: LEVALBUTEROL HCL 0.63 MG/3 ML VIAL.NEB. IH SCH ×3 (07:43→21:27)
[2019-01-16 08:02] LABS: BLOOD UREA NITROGEN 50.5 mg/dL (7-18); CALCIUM 9.1 mg/dL (8.5-10.1); CREATININE 1.3 mg/dL (0.55-1.3); MAGNESIUM 2.2 mg/dL (1.8-2.4); PHOSPHOROUS 4.4 mg/dL (2.5-4.9); POTASSIUM 4.3 mmol/L (3.5-5.1)
[2019-01-16] MEDS: PANTOPRAZOLE 40 MG TABLET (FP) PO SCH (10:16)
[2019-01-16] MEDS: amLODIPine BESYLATE 10 MG TABLET (FP) PO SCH (10:16)
[2019-01-16] MEDS: CLOPIDOGREL BISULFATE 75 MG TABLET (FP) PO SCH (10:16)
[2019-01-16] MEDS: ISOSORBIDE MONONITRATE 60 MG TAB.SR.24H (FP) PO SCH (10:16)
[2019-01-16] MEDS ORDERED: INSULIN (LEVEMIR) 100 UNITS/ML UNITS SQ SCH (11:55)
--- NOTE | 2019-01-16 12:01 | PN ---
Progress Note (short form) - Note Progress Note: Still with significant cough. Less productive. No CP. Intake & Output 01/13/19 01/14/19 01/15/19 01/16/19 23:59 23:59 23:59 23:59 Intake Total 1780 780 250 0 Output Total 1700 Balance 80 780 250 0 Weight 156 lb 7 oz 158 lb 9 oz 159 lb 3.2 oz 159 lb 4 oz Last Vital Signs Temp Pulse Resp BP Pulse Ox 97.3 F L 95 H 20 143/64 93 L 01/16/19 07:50 01/16/19 07:50 01/16/19 07:50 01/16/19 07:50 01/15/19 21:00 Active Medications Acetaminophen (Tylenol -) 1,000 mg PO Q6H PRN PRN Reason: PAIN LEVEL 6-10 Last Admin: 01/13/19 21:23 Dose: 1,000 mg Albuterol/Ipratropium (Duoneb -) 1 amp NEB Q4H PRN PRN Reason: SHORTNESS OF BREATH Last Admin: 01/16/19 04:25 Dose: 1 amp Amlodipine Besylate (Norvasc -) 10 mg PO DAILY [facility] Last Admin: 01/16/19 10:16 Dose: 10 mg Atorvastatin Calcium (Lipitor -) 80 mg PO HS [facility] Last Admin: 01/15/19 21:29 Dose: 80 mg Benzocaine/Menthol (Cepacol Lozenge -) 1 each MM PRN PRN PRN Reason: SORE THROAT Last Admin: 01/16/19 01:09 Dose: 1 each Clopidogrel Bisulfate (Plavix -) 75 mg PO DAILY [facility] Last Admin: 01/16/19 10:16 Dose: 75 mg Guaifenesin/Codeine Phosphate (Robitussin Ac -) 5 ml PO TID [facility] Last Admin: 01/16/19 06:10 Dose: 5 ml Heparin Sodium (Porcine) (Heparin -) 5,000 unit SQ TID [facility] Last Admin: 01/16/19 06:10 Dose: 5,000 unit Insulin Aspart (Novolog Vial Sliding Scale -) 1 vial SQ Q4H [facility]; Protocol Insulin Detemir (Levemir Vial) 50 units SQ AM [facility] Last Admin: 01/16/19 06:10 Dose: 50 units Insulin Detemir (Levemir Vial) 20 units SQ HS [facility] Isosorbide Mononitrate (Imdur -) 60 mg PO DAILY [facility] Last Admin: 01/16/19 10:16 Dose: 60 mg Levalbuterol HCl (Xopenex) 0.63 mg IH RTID [facility] Last Admin: 01/16/19 07:43 Dose: 0.63 mg Methylprednisolone Sodium Succinate (Solu-Medrol -) 20 mg IVPUSH Q8H-IV [facility] Last Admin: 01/16/19 10:16 Dose: 20 mg Metoprolol Succinate (Toprol Xl -) 100 mg PO DAILY [facility] Last Admin: 01/16/19 10:16 Dose: 100 mg Montelukast Sodium (Singulair -) 10 mg PO HS [facility] Last Admin: 01/15/19 21:29 Dose: 10 mg Pantoprazole Sodium (Protonix -) 40 mg PO DAILY [facility] Last Admin: 01/16/19 10:16 Dose: 40 mg Gen: NAD at rest Heart: RRR Lung: scattered rhonchi, no wheeze decreased breath sounds left base Abd: soft, nontender Ext: LLE edema Laboratory Results - last 24 hr 01/15/19 01/15/19 01/15/19 12:07 17:01 21:26 Sodium Potassium Chloride Carbon Dioxide Anion Gap BUN Creatinine Est GFR (CKD-EPI)AfAm Est GFR (CKD-EPI)NonAf POC Glucometer 347 292 356 Random Glucose Calcium Phosphorus Magnesium 01/16/19 01/16/19 01/16/19 01:07 06:08 06:10 Sodium 138 Potassium 4.3 Chloride 104 Carbon Dioxide 25 Anion Gap 9 BUN 50.5 H Creatinine 1.3 Est GFR (CKD-EPI)AfAm 48.47 Est GFR (CKD-EPI)NonAf 41.82 POC Glucometer 274 288 Random Glucose 296 H Calcium 9.1 Phosphorus 4.4 Magnesium 2.2 01/16/19 08:40 Sodium Potassium Chloride Carbon Dioxide Anion Gap BUN Creatinine Est GFR (CKD-EPI)AfAm Est GFR (CKD-EPI)NonAf POC Glucometer 331 Random Glucose Calcium Phosphorus Magnesium A/P Low suspicion of Pneumonia Atelectasis CAD s/p recent CABG 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
[2019-01-16] MEDS: predniSONE 20 MG TABLET (UD) PO SCH (15:53)
[2019-01-16] MEDS: guaiFENesin/CODEINE 5 ML UNIT-DOSE CUPS PO PRN ×2 (15:58→23:49)
--- NOTE | 2019-01-16 16:27 | PN ---
Progress Note (short form) - Note Progress Note: Patient continues to cough . No fever or chills, continues to have shortness of breath. Vital Signs Temperature 98.4 F 01/16/19 10:00 Pulse Rate 92 H 01/16/19 10:00 Respiratory Rate 20 01/16/19 10:00 Blood Pressure 158/61 01/16/19 10:00 O2 Sat by Pulse Oximetry (%) 93 L 01/16/19 09:00 GENERAL: The patient is awake, alert, and fully oriented, in no acute distress. on 2liter nc HEAD: Normal with no signs of trauma. EYES: PERRL, extraocular movements intact, sclera anicteric, conjunctiva clear. ENT: Ears normal, oropharynx clear without exudates, moist mucous membranes. NECK: Trachea midline, full range of motion, supple. LUNGS: decreased BS bl , no wheezes, no crackles, no accessory muscle use. HEART: RRR. S1, S2 without murmur, rub or gallop. ABDOMEN: Soft, nontender, nondistended, normoactive bowel sounds, no guarding, no rebound, no hepatosplenomegaly, no masses. EXTREMITIES: 2+ pulses, warm, well-perfused, 2 plus edema. NEUROLOGICAL: Cranial nerves II through XII grossly intact. Normal speech, gait not observed. PSYCH: Normal mood, normal affect. SKIN: Warm, dry, normal turgor, no rashes or lesions noted CBCD WBC 8.1 K/mm3 (4.0-10.0) 01/14/19 12:30 RBC 3.70 M/mm3 (3.60-5.2) 01/14/19 12:30 Hgb 10.2 GM/dL (10.7-15.3) L 01/14/19 12:30 Hct 31.2 % (32.4-45.2) L 01/14/19 12:30 MCV 84.4 fl (80-96) 01/14/19 12:30 MCHC 32.8 g/dl (32.0-36.0) 01/14/19 12:30 RDW 14.6 % (11.6-15.6) 01/14/19 12:30 Plt Count 295 K/MM3 (134-434) D 01/14/19 12:30 MPV 8.6 fl (7.5-11.1) D 01/14/19 12:30 CMP Sodium 138 mmol/L (136-145) 01/16/19 06:10 Potassium 4.3 mmol/L (3.5-5.1) 01/16/19 06:10 Chloride 104 mmol/L (98-107) 01/16/19 06:10 Carbon Dioxide 25 mmol/L (21-32) 01/16/19 06:10 Anion Gap 9 MMOL/L (8-16) 01/16/19 06:10 BUN 50.5 mg/dL (7-18) H 01/16/19 06:10 Creatinine 1.3 mg/dL (0.55-1.3) 01/16/19 06:10 Random Glucose 296 mg/dL (74-106) H 01/16/19 06:10 Calcium 9.1 mg/dL (8.5-10.1) 01/16/19 06:10 Total Bilirubin 0.4 mg/dL (0.2-1) 01/07/19 07:50 AST 19 U/L (15-37) 01/07/19 07:50 ALT 44 U/L (13-61) 01/07/19 07:50 Alkaline Phosphatase 94 U/L (45-117) 01/07/19 07:50 Total Protein 6.4 g/dl (6.4-8.2) 01/07/19 07:50 Albumin 3.0 g/dl (3.4-5.0) L 01/07/19 07:50 CARDIAC ENZYMES Creatine Kinase 97 U/L (26-192) 01/05/19 20:20 Troponin I 0.06 ng/ml (0.00-0.05) H 01/06/19 17:40 Current Medications Generic Name Dose Route Start Last Admin Trade Name Freq PRN Reason Stop Dose Admin Acetaminophen 1,000 mg 01/07/19 23:30 01/13/19 21:23 Tylenol - PO 1,000 mg Q6H PRN Administration PAIN LEVEL 6-10 Albuterol/Ipratropium 1 amp 01/07/19 23:30 01/16/19 04:25 Duoneb - NEB 1 amp Q4H PRN Administration SHORTNESS OF BREATH Amlodipine Besylate 10 mg 01/10/19 11:13 01/16/19 10:16 Norvasc - PO 10 mg DAILY JAMEL Administration Atorvastatin Calcium 80 mg 01/08/19 22:00 01/15/19 21:29 Lipitor - PO 80 mg HS [facility] Administration Benzocaine/Menthol 1 each 01/16/19 00:36 01/16/19 01:09 Cepacol Lozenge - MM 1 each PRN PRN Administration SORE THROAT Clopidogrel Bisulfate 75 mg 01/08/19 10:00 01/16/19 10:16 Plavix - PO 75 mg DAILY JAMEL Administration Guaifenesin/Codeine Phosphate 10 ml 01/16/19 12:03 01/16/19 15:58 Robitussin Ac - PO 10 ml Q6H PRN Administration COUGH Heparin Sodium (Porcine) 5,000 unit 01/08/19 06:00 01/16/19 13:49 Heparin - SQ 5,000 unit TID [facility] Administration Insulin Aspart 1 vial 01/16/19 11:56 01/16/19 12:40 Novolog Vial Sliding Scale - SQ Not Given Q4H [facility] Protocol Insulin Detemir 50 units 01/15/19 16:32 01/16/19 06:10 Levemir Vial SQ 50 units AM JAMEL Administration Insulin Detemir 20 units 01/16/19 11:55 Levemir Vial SQ HS [facility] Isosorbide Mononitrate 60 mg 01/13/19 10:00 01/16/19 10:16 Imdur - PO 60 mg DAILY [facility] Administration Levalbuterol HCl 0.63 mg 01/14/19 14:00 01/16/19 13:30 Xopenex IH 0.63 mg RTID [facility] Administration Metoprolol Succinate 100 mg 01/08/19 10:00 01/16/19 10:16 Toprol Xl - PO 100 mg DAILY JAMEL Administration Montelukast Sodium 10 mg 01/08/19 22:00 01/15/19 21:29 Singulair - PO 10 mg HS [facility] Administration Pantoprazole Sodium 40 mg 01/08/19 10:00 01/16/19 10:16 Protonix - PO 40 mg DAILY JAMEL Administration Prednisone 40 mg 01/16/19 15:00 01/16/19 15:53 Deltasone - PO 40 mg DAILY JAMEL Administration Home Medications Medication Instructions Recorded Albuterol Sulfate Inhaler - 1 - 2 inh IH DAILY PRN 09/28/12 [Ventolin HFA Inhaler -] Alprazolam [Xanax] 0.5 mg PO HS PRN 09/28/12 Insulin Regular, Human [Humulin R] 8 unit IJ UTDICT 09/28/12 Alprazolam [Xanax] 0.5 mg PO HS 01/05/19 Amlodipine Besylate 5 mg PO DAILY 01/05/19 Atorvastatin Ca [Lipitor] 80 mg PO HS 01/05/19 Clopidogrel Bisulfate [Plavix] 75 mg PO DAILY 01/05/19 Escitalopram Oxalate [Lexapro -] 10 mg PO DAILY 01/05/19 Furosemide [Lasix -] 40 mg PO DAILY 01/05/19 Isosorbide Mononitrate [Isosorbide 30 mg PO DAILY 01/05/19 Mononitrate ER] Metoprolol Succinate 100 mg PO DAILY 01/05/19 Montelukast Na [Singulair -] 10 mg PO HS 01/05/19 Oxycodone HCl/Acetaminophen 1 - 2 tab PO Q4H 01/05/19 [Percocet 5-325 mg Tablet] Pantoprazole Sodium 40 mg PO DAILY 01/05/19 ASSESSMENT AND PLAN: Patient is a 68yo female with PMHx of CAD s/p CABG 12/24/18, HTN, HLP, DM who presented with worsening SOB and hypoxia. #Acute SOB/hypoxia, due to left base PNA/atelectasis with b/l pleural effusions improving . completed Augmentin 01/13/2019 , feels better today s/p IV solu medrol now on prednisone po as per pulm. 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 #s/p Sepsis improved # Acute diastolic heart failure exacerbation: continue lasix / BB # DM: off insulin pump now. continue levemir 40, cont ROBERT , [place] consult appreciated . # HTN: increased norvasc to 10mg continue, continue metorpolol , increased imdur to 60 # CAD, s/p CABG: cont plavix. ASA on hold , cont toprol, imdur, norvasc, and statin. # L axillary lymph node enlargement: f/u as out pt . # L adrenal gland enlargement on CT: f/u as out pt # L leg edema, US neg DVT px: heparin Sq Visit type - Emergency Visit Emergency Visit: Yes ED Registration Date: 01/05/19 Care time: The patient presented to the Emergency Department on the above date and was hospitalized for further evaluation of their emergent condition. - New Patient This patient is new to me today: No - Critical Care Critical Care patient: No - Discharge Referral Referred to [facility] Med [facility] No
[2019-01-16] MEDS: MONTELUKAST NA 10 MG TABLET PO SCH (23:45)
[2019-01-16] MEDS: ATORVASTATIN CA 80 MG TABLET (FP) PO SCH (23:45)
[2019-01-17] MEDS: INSULIN SLIDING SCALE (NOVOLOG) 1 VIAL SQ SCH ×3 (03:46→12:08)
[2019-01-17] MEDS: BENZOCAINE/MENTH/CETYLPYRD CL 1 EACH LOZENGE MM PRN (05:48)
[2019-01-17] MEDS: HEPARIN NA (PORCINE) 5,000 UNITS/ML 1ML VIAL SQ SCH ×2 (05:49→14:02)
[2019-01-17] MEDS: INSULIN (LEVEMIR) 100 UNITS/ML UNITS SQ SCH (06:08)
[2019-01-17] MEDS: ISOSORBIDE MONONITRATE 60 MG TAB.SR.24H (FP) PO SCH ×2 (06:26→09:30)
[2019-01-17] MEDS: amLODIPine BESYLATE 10 MG TABLET (FP) PO SCH ×2 (06:27→09:30)
[2019-01-17] MEDS: LEVALBUTEROL HCL 0.63 MG/3 ML VIAL.NEB. IH SCH ×2 (07:39→14:03)
[2019-01-17] MEDS: predniSONE 20 MG TABLET (UD) PO SCH (09:29)
[2019-01-17] MEDS: CLOPIDOGREL BISULFATE 75 MG TABLET (FP) PO SCH (09:29)
[2019-01-17] MEDS: PANTOPRAZOLE 40 MG TABLET (FP) PO SCH (09:29)
[2019-01-17 10:18] LABS: BASO % 0.3 % (0-2.0); HEMATOCRIT 31.4 % (32.4-45.2); HEMOGLOBIN 10.2 GM/dL (10.7-15.3); LYMPH % 8.2 % (8-40); MCH 27.4 pg (25.7-33.7); MCHC 32.4 g/dl (32.0-36.0); MEAN CELL VOLUME 84.6 fl (80-96); MEAN PLT VOLUME 8.6 fl (7.5-11.1); MONO % 7.5 % (3.8-10.2); PLATELET COUNT 311 K/MM3 (134-434); RBC 3.71 M/mm3 (3.60-5.2); RDW 14.9 % (11.6-15.6); WHITE BLOOD COUNT 15.1 K/mm3 (4.0-10.0)
[2019-01-17 10:54] LABS: BLOOD UREA NITROGEN 36.4 mg/dL (7-18); CALCIUM 9.6 mg/dL (8.5-10.1); CREATININE 1.2 mg/dL (0.55-1.3); POTASSIUM 4.7 mmol/L (3.5-5.1)
--- NOTE | 2019-01-17 11:16 | PN ---
Progress Note (short form) - Note Progress Note: Still with cough. Less productive. No CP. Intake & Output 01/14/19 01/15/19 01/16/19 01/17/19 23:59 23:59 23:59 23:59 Intake Total 780 250 650 300 Balance 780 250 650 300 Weight 158 lb 9 oz 159 lb 3.2 oz 159 lb 4 oz 159 lb 7 oz Last Vital Signs Temp Pulse Resp BP Pulse Ox 97.6 F 96 H 20 182/87 H 93 L 01/17/19 06:48 01/17/19 06:48 01/17/19 06:48 01/17/19 06:48 01/16/19 09:00 Active Medications Acetaminophen (Tylenol -) 1,000 mg PO Q6H PRN PRN Reason: PAIN LEVEL 6-10 Last Admin: 01/13/19 21:23 Dose: 1,000 mg Albuterol/Ipratropium (Duoneb -) 1 amp NEB Q4H PRN PRN Reason: SHORTNESS OF BREATH Last Admin: 01/16/19 04:25 Dose: 1 amp Amlodipine Besylate (Norvasc -) 10 mg PO DAILY [facility] Last Admin: 01/17/19 09:30 Dose: Not Given Atorvastatin Calcium (Lipitor -) 80 mg PO HS [facility] Last Admin: 01/16/19 23:45 Dose: 80 mg Benzocaine/Menthol (Cepacol Lozenge -) 1 each MM PRN PRN PRN Reason: SORE THROAT Last Admin: 01/17/19 05:48 Dose: 1 each Clopidogrel Bisulfate (Plavix -) 75 mg PO DAILY [facility] Last Admin: 01/17/19 09:29 Dose: 75 mg Guaifenesin/Codeine Phosphate (Robitussin Ac -) 10 ml PO Q6H PRN PRN Reason: COUGH Last Admin: 01/16/19 23:49 Dose: 10 ml Heparin Sodium (Porcine) (Heparin -) 5,000 unit SQ TID [facility] Last Admin: 01/17/19 05:49 Dose: 5,000 unit Insulin Aspart (Novolog Vial Sliding Scale -) 1 vial SQ Q4H [facility]; Protocol Last Admin: 01/17/19 09:28 Dose: Not Given Insulin Detemir (Levemir Vial) 50 units SQ AM [facility] Last Admin: 06/23/19 06:08 Dose: 50 units Insulin Detemir (Levemir Vial) 20 units SQ HS [facility] Last Admin: 01/16/19 23:45 Dose: 20 units Isosorbide Mononitrate (Imdur -) 60 mg PO DAILY [facility] Last Admin: 01/17/19 09:30 Dose: Not Given Levalbuterol HCl (Xopenex) 0.63 mg IH RTID [facility] Last Admin: 01/17/19 07:39 Dose: 0.63 mg Metoprolol Succinate (Toprol Xl -) 100 mg PO DAILY [facility] Last Admin: 01/17/19 09:30 Dose: Not Given Montelukast Sodium (Singulair -) 10 mg PO HS [facility] Last Admin: 01/16/19 23:45 Dose: 10 mg Pantoprazole Sodium (Protonix -) 40 mg PO DAILY [facility] Last Admin: 01/17/19 09:29 Dose: 40 mg Prednisone (Deltasone -) 40 mg PO DAILY [facility] Last Admin: 01/17/19 09:29 Dose: 40 mg Gen: NAD at rest Heart: RRR Lung: scattered rhonchi, no wheeze decreased breath sounds left base Abd: soft, nontender Ext: LLE edema Laboratory Results - last 24 hr 01/16/19 01/16/19 01/17/19 18:11 23:39 05:40 WBC RBC Hgb Hct MCV MCH MCHC RDW Plt Count MPV Absolute Neuts (auto) Neutrophils % Lymphocytes % Monocytes % Eosinophils % Basophils % Nucleated RBC % Sodium Potassium Chloride Carbon Dioxide Anion Gap BUN Creatinine Est GFR (CKD-EPI)AfAm Est GFR (CKD-EPI)NonAf POC Glucometer 323 275 214 Random Glucose Calcium 01/17/19 01/17/19 01/17/19 08:50 08:50 09:12 WBC 15.1 H RBC 3.71 Hgb 10.2 L Hct 31.4 L MCV 84.6 MCH 27.4 MCHC 32.4 RDW 14.9 Plt Count 311 MPV 8.6 Absolute Neuts (auto) 12.7 H Neutrophils % 84.0 H Lymphocytes % 8.2 Monocytes % 7.5 D Eosinophils % 0.0 D Basophils % 0.3 Nucleated RBC % 0 Sodium 142 Potassium 4.7 Chloride 106 Carbon Dioxide 28 Anion Gap 8 BUN 36.4 H Creatinine 1.2 Est GFR (CKD-EPI)AfAm 53.40 Est GFR (CKD-EPI)NonAf 46.07 POC Glucometer 157 Random Glucose 151 H Calcium 9.6 A/P Low suspicion of Pneumonia Atelectasis CAD s/p recent CABG Left Pleural Effusion 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
--- NOTE | 2019-01-17 12:09 | PN ---
Teaching Attending Note Name of Resident: Michelet Lewis ATTENDING PHYSICIAN STATEMENT I saw and evaluated the patient. I reviewed the resident's note and discussed the case with the resident. I agree with the resident's findings and plan as documented. SUBJECTIVE: Patient is comfortable with no acute distress. OBJECTIVE: Vital Signs Temperature 98.7 F 01/17/19 10:00 Pulse Rate 88 01/17/19 10:00 Respiratory Rate 20 01/17/19 10:00 Blood Pressure 145/67 01/17/19 10:00 O2 Sat by Pulse Oximetry (%) 93 L 01/16/19 09:00 GENERAL: The patient is awake, alert, and fully oriented, in no acute distress. on 2liter nc HEAD: Normal with no signs of trauma. EYES: PERRL, extraocular movements intact, sclera anicteric, conjunctiva clear. ENT: Ears normal, oropharynx clear without exudates, moist mucous membranes. NECK: Trachea midline, full range of motion, supple. LUNGS: decreased BS bl , no wheezes, no crackles, no accessory muscle use. HEART: RRR. S1, S2 without murmur, rub or gallop. ABDOMEN: Soft, nontender, nondistended, normoactive bowel sounds, no guarding, no rebound, no hepatosplenomegaly, no masses. EXTREMITIES: 2+ pulses, warm, well-perfused, 2 plus edema. NEUROLOGICAL: Cranial nerves II through XII grossly intact. Normal speech, gait not observed. PSYCH: Normal mood, normal affect. SKIN: Warm, dry, normal turgor, no rashes or lesions noted WBC 15.1 K/mm3 (4.0-10.0) H 01/17/19 08:50 RBC 3.71 M/mm3 (3.60-5.2) 01/17/19 08:50 Hgb 10.2 GM/dL (10.7-15.3) L 01/17/19 08:50 Hct 31.4 % (32.4-45.2) L 01/17/19 08:50 MCV 84.6 fl (80-96) 01/17/19 08:50 MCHC 32.4 g/dl (32.0-36.0) 01/17/19 08:50 RDW 14.9 % (11.6-15.6) 01/17/19 08:50 Plt Count 311 K/MM3 (134-434) 01/17/19 08:50 MPV 8.6 fl (7.5-11.1) 01/17/19 08:50 CMP Sodium 142 mmol/L (136-145) 01/17/19 08:50 Potassium 4.7 mmol/L (3.5-5.1) 01/17/19 08:50 Chloride 106 mmol/L (98-107) 01/17/19 08:50 Carbon Dioxide 28 mmol/L (21-32) 01/17/19 08:50 Anion Gap 8 MMOL/L (8-16) 01/17/19 08:50 BUN 36.4 mg/dL (7-18) H 01/17/19 08:50 Creatinine 1.2 mg/dL (0.55-1.3) 01/17/19 08:50 Random Glucose 151 mg/dL (74-106) H 01/17/19 08:50 Calcium 9.6 mg/dL (8.5-10.1) 01/17/19 08:50 Total Bilirubin 0.4 mg/dL (0.2-1) 01/07/19 07:50 AST 19 U/L (15-37) 01/07/19 07:50 ALT 44 U/L (13-61) 01/07/19 07:50 Alkaline Phosphatase 94 U/L (45-117) 01/07/19 07:50 Total Protein 6.4 g/dl (6.4-8.2) 01/07/19 07:50 Albumin 3.0 g/dl (3.4-5.0) L 01/07/19 07:50 CARDIAC ENZYMES Creatine Kinase 97 U/L (26-192) 01/05/19 20:20 Troponin I 0.06 ng/ml (0.00-0.05) H 01/06/19 17:40 Current Medications Generic Name Dose Route Start Last Admin Trade Name Freq PRN Reason Stop Dose Admin Acetaminophen 1,000 mg 01/07/19 23:30 01/13/19 21:23 Tylenol - PO 1,000 mg Q6H PRN Administration PAIN LEVEL 6-10 Albuterol/Ipratropium 1 amp 01/07/19 23:30 01/16/19 04:25 Duoneb - NEB 1 amp Q4H PRN Administration SHORTNESS OF BREATH Amlodipine Besylate 10 mg 01/10/19 11:13 01/17/19 09:30 Norvasc - PO Not Given DAILY [facility] Atorvastatin Calcium 80 mg 01/08/19 22:00 01/16/19 23:45 Lipitor - PO 80 mg HS [facility] Administration Benzocaine/Menthol 1 each 01/16/19 00:36 01/17/19 05:48 Cepacol Lozenge - MM 1 each PRN PRN Administration SORE THROAT Clopidogrel Bisulfate 75 mg 01/08/19 10:00 01/17/19 09:29 Plavix - PO 75 mg DAILY [facility] Administration Guaifenesin/Codeine Phosphate 10 ml 01/16/19 12:03 01/16/19 23:49 Robitussin Ac - PO 10 ml Q6H PRN Administration COUGH Heparin Sodium (Porcine) 5,000 unit 01/08/19 06:00 01/17/19 05:49 Heparin - SQ 5,000 unit TID J[facility]EL Administration Insulin Aspart 1 vial 01/16/19 11:56 01/17/19 09:28 Novolog Vial Sliding Scale - SQ Not Given Q4H [facility] Protocol Insulin Detemir 50 units 01/15/19 16:32 01/17/19 06:08 Levemir Vial SQ 50 units AM [facility] Administration Insulin Detemir 20 units 01/16/19 11:55 01/16/19 23:45 Levemir Vial SQ 20 units HS [facility] Administration Isosorbide Mononitrate 60 mg 01/13/19 10:00 01/17/19 09:30 Imdur - PO Not Given DAILY [facility] Levalbuterol HCl 0.63 mg 01/14/19 14:00 01/17/19 07:39 Xopenex IH 0.63 mg RTID [facility] Administration Metoprolol Succinate 100 mg 01/08/19 10:00 01/17/19 09:30 Toprol Xl - PO Not Given DAILY [facility] Montelukast Sodium 10 mg 01/08/19 22:00 01/16/19 23:45 Singulair - PO 10 mg HS [facility] Administration Pantoprazole Sodium 40 mg 01/08/19 10:00 01/17/19 09:29 Protonix - PO 40 mg DAILY [facility] Administration Prednisone 40 mg 01/16/19 15:00 01/17/19 09:29 Deltasone - PO 40 mg DAILY [facility] Administration Current Medications Generic Name Dose Route Start Last Admin Trade Name Freq PRN Reason Stop Dose Admin Acetaminophen 1,000 mg 01/07/19 23:30 01/13/19 21:23 Tylenol - PO 1,000 mg Q6H PRN Administration PAIN LEVEL 6-10 Albuterol/Ipratropium 1 amp 01/07/19 23:30 01/16/19 04:25 Duoneb - NEB 1 amp Q4H PRN Administration SHORTNESS OF BREATH Amlodipine Besylate 10 mg 01/10/19 11:13 01/17/19 09:30 Norvasc - PO Not Given DAILY [facility] Atorvastatin Calcium 80 mg 01/08/19 22:00 01/16/19 23:45 Lipitor - PO 80 mg HS [facility] Administration Benzocaine/Menthol 1 each 01/16/19 00:36 01/17/19 05:48 Cepacol Lozenge - MM 1 each PRN PRN Administration SORE THROAT Clopidogrel Bisulfate 75 mg 01/08/19 10:00 01/17/19 09:29 Plavix - PO 75 mg DAILY [facility] Administration Guaifenesin/Codeine Phosphate 10 ml 01/16/19 12:03 01/16/19 23:49 Robitussin Ac - PO 10 ml Q6H PRN Administration COUGH Heparin Sodium (Porcine) 5,000 unit 01/08/19 06:00 01/17/19 05:49 Heparin - SQ 5,000 unit TID [facility] Administration Insulin Aspart 1 vial 01/16/19 11:56 01/17/19 09:28 Novolog Vial Sliding Scale - SQ Not Given Q4H [facility] Protocol Insulin Detemir 50 units 01/15/19 16:32 01/17/19 06:08 Levemir Vial SQ 50 units AM [facility] Administration Insulin Detemir 20 units 01/16/19 11:55 01/16/19 23:45 Levemir Vial SQ 20 units HS [facility] Administration Isosorbide Mononitrate 60 mg 01/13/19 10:00 01/17/19 09:30 Imdur - PO Not Given DAILY [facility] Levalbuterol HCl 0.63 mg 01/14/19 14:00 01/17/19 07:39 Xopenex IH 0.63 mg RTID [facility] Administration Metoprolol Succinate 100 mg 01/08/19 10:00 06/23/19 09:30 Toprol Xl - PO Not Given DAILY [facility] Montelukast Sodium 10 mg 01/08/19 22:00 01/16/19 23:45 Singulair - PO 10 mg HS [facility] Administration Pantoprazole Sodium 40 mg 01/08/19 10:00 01/17/19 09:29 Protonix - PO 40 mg DAILY [facility] Administration Prednisone 40 mg 01/16/19 15:00 01/17/19 09:29 Deltasone - PO 40 mg DAILY [facility] Administration ASSESSMENT AND PLAN: Patient is a 68yo female with PMHx of CAD s/p CABG 12/24/18, HTN, HLP, DM who presented with worsening SOB and hypoxia. #Acute SOB/hypoxia, due to left base PNA/atelectasis with b/l pleural effusions improving . completed Augmentin 01/13/2019 , feels better today s/p IV solu medrol now on prednisone po as per pulm. 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 # Continuous cough: increased the dose of cough suppresant and discharged home with #s/p Sepsis improved # Acute diastolic heart failure exacerbation: continue lasix/BB # DM: off insulin pump continue levemir 40, cont SSI ,follow with dr Gómez within a week period . # HTN: more controlled now, increased norvasc to 10mg continue, continue metorpolol , increased imdur to 60 # CAD, s/p CABG: cont plavix. cont toprol, imdur, norvasc, and statin. Patient is not on aspirin since allergic to aspirin. # L axillary lymph node enlargement: f/u as out pt . # L adrenal gland enlargement on CT: f/u as out pt # L leg edema, US neg DVT px: heparin Sq
[2019-01-17 12:14] VITALS: BP 145/67; PULSE 88; TEMP 98.7
--- NOTE | 2019-01-17 12:25 | DS ---
Physical Exam: SUBJECTIVE: Patient seen and examined at bedside. no acute events overnight. L side chest discomfort and breathing, improved. denies fever, chills, sob, n/v/d , urinary sxs OBJECTIVE: Vital Signs Period Temp Pulse Resp BP Sys/Levi Pulse Ox Last 24 Hr 97.6 F-98.7 F 88-96 18-20 145-182/67-87 PHYSICAL EXAM GENERAL: AOX3 NAD HEENT: NCAT, PERRRLA, EOMI, sclera anicteric, conjunctiva clear. oropharynx clear without exudates. MMM NECK: supple without lymphadenopathy, JVD, or masses. Chest: incision post CABG, clean/dry, TTP L breast/chest area, +2x2cm soft nontender non-erythematous mobile L axial lymph node LUNGS: decreased breath sounds on the L, crackles, much improved HEART: RRR, normal S1 and S2 without murmur, rub or gallop. ABDOMEN: Soft, NTND, normoactive bowel sounds, no guarding, no rebound, no masses. LOWER EXTREMITIES: 2+ pulses, warm, well-perfused. 1+ b/l pitting edema. NEUROLOGICAL: Cranial nerves II-XII intact. Normal speech. LABS Laboratory Results - last 24 hr 01/16/19 01/16/19 01/17/19 18:11 23:39 05:40 WBC RBC Hgb Hct MCV MCH MCHC RDW Plt Count MPV Absolute Neuts (auto) Neutrophils % Lymphocytes % Monocytes % Eosinophils % Basophils % Nucleated RBC % Sodium Potassium Chloride Carbon Dioxide Anion Gap BUN Creatinine Est GFR (CKD-EPI)AfAm Est GFR (CKD-EPI)NonAf POC Glucometer 323 275 214 Random Glucose Calcium 01/17/19 01/17/19 01/17/19 08:50 08:50 09:12 WBC 15.1 H RBC 3.71 Hgb 10.2 L Hct 31.4 L MCV 84.6 MCH 27.4 MCHC 32.4 RDW 14.9 Plt Count 311 MPV 8.6 Absolute Neuts (auto) 12.7 H Neutrophils % 84.0 H Lymphocytes % 8.2 Monocytes % 7.5 D Eosinophils % 0.0 D Basophils % 0.3 Nucleated RBC % 0 Sodium 142 Potassium 4.7 Chloride 106 Carbon Dioxide 28 Anion Gap 8 BUN 36.4 H Creatinine 1.2 Est GFR (CKD-EPI)AfAm 53.40 Est GFR (CKD-EPI)NonAf 46.07 POC Glucometer 157 Random Glucose 151 H Calcium 9.6 ECHO Interpretation Summary The study was technically difficult with many images being suboptimal in quality. The left ventricular size, thickness and function are normal The left ventricular ejection fraction is normal. Septal motion is consistent with post-operative state. There is mild tricuspid regurgitation. Right ventricular systolic pressure is elevated at 40-50mmHg. There is trace to mild mitral regurgitation. MD Angelo Hopkins 01/06/2019 02:43 PM [id number] CT/CHEST CTA HISTORY PROVIDED: Rule out PE. TECHNIQUE: Sequential axial images were obtained from the thoracic inlet through the domes of the diaphragm following the administration of intravenous contrast material. CTA pulmonary embolism protocol was utilized, including coronal and oblique coronal MIP images. There is adequate opacification of the central pulmonary vasculature with no filling defects suspicious for pulmonary embolism. Evaluation of the lung joel demonstrates moderate bilateral pleural effusions , left greater than right. There is extensive atelectasis within both lower lobes with additional areas of consolidation/atelectasis within the upper lobes. No mediastinal masses, fluid collections or lymphadenopathy identified. The heart is enlarged. The patient is S/P CABG procedure. Evaluation of the upper abdomen demonstrates no acute abnormalities. There is enlargement of the left adrenal gland. IMPRESSION: 1. No evidence of pulmonary embolism. 2. Bilateral pleural effusions and lower lobe atelectasis. Please see above discussion. Reported By: Anderson Hyman MD 01/06/19 5011 HOSPITAL COURSE: Date of Admission:01/05/19 Date of Discharge: 01/17/19 68 yo F with a PMHx of HTN, DM, CAD (s/p recent CABG 12/24), Asthma, presented to the ED with worsening SOB since her hospitalization @ [facility] on 12/24 for a CABG. Admitted for Acute hypoxic Respiratory Failure 2/2 b/l pleural effusions - afebrile, +leukocytosis. ESR 73, CRP 1.8, D-Dimer is elevated. CXR w/ consolidation, pleural effusion. CTA reviewed above, neg for PE, mod b/l effusions L>R. based on echo and CT findings unclear if effusions were 2/2 dCHF vs sepsis 2/2 LLL PNA vs post op inflammatory changes from recent CABG. - resolving -s/p Vanc/zosyn in ED -ID consulted: Dr. Adams -pulm consulted, Brpatti, for noted pleural effusion. -cardio consulted, Ariana -bcx, legionella, MRSA screen, sputum cx neg -Completed ABx w/ zosyn initially and then completed w/ augmentin -Leukocytosis resolved s/p abx, however now has reoccurred w/ initiation of steroids. -pt to be dcd w/ prednisone taper -c/w robitussin at dc for cough -pt was also tx w/ IV Lasix 80 qd as per cardio recs w/ noted improvement of effusions on CXR -resume home dose lasix 40 po at home -had pre-/post- evaluation, desats to 88, qualifies for home O2 2L upon discharge -outpt PFTs, PSG -monitor pleural effusion as outpt with serial CXRs, if does not resolve may need dx thoracentisis. per cardio ok to hold plavix temporarily if needed beforehand, will need 5-7d. #Palpitations: ?sinus tach secondary to nebs? -holter benign here -pt switched to xopenex inh as causes less tachy #KARON? - (baseline 1.2-1.3) cr 1.4 possibly 2/2 lasix vs dCHF - now resolved #CAD s/p CABG (12/24) -c/w Plavix, Lipitor 80 at dc -c/w increased dose of imdur 60mg qd at dc -c/w increased dose of norvasc 10mg at dc -c/w home dose toprol 100mg qd at dc -patient allergic to ASA -troponins .07....06, downtrended -echo reviewed above, nl EF, elevated RVP #Anemia - hgb 7.8 likely from recent CABG, improved to 9.8 s/p 1 unit pRBC and has remained stable #L breast pain w/ small 2x2cm L axial lymph node - soft nontender non- erythematous mobile. breast pain and lymph node likely 2/2 recent CABG. no signs of inx. -pt will need to f/u outpt in 1 mo for monitoring of lymph node. -last mammo in 04/14 nl #L adrenal gland enlargement - noted on CT -will f/u as outpt #vaginal yeast infx - itchy white discharge, s/p diflucan 150mg x1 on 01/07/19. - resolved #LLE edema - U/S neg for DVT #HTN - -c/w increased dose of imdur 60mg qd at dc -c/w increased dose of norvasc 10mg at dc -c/w home dose toprol 100mg qd at dc #Asthma -not in exacerbation -cont home Singulair 10mg Daily at dc #DM -A1c 7.0 -uses insulin pump at home, basal rate (~ 45U/d) sugar unctl while on steroids, endocrine consulted, Jude. Levemir 50u am and 20u hs pt will f/u outpt w/ endo for better glucose ctl pt stable and ready for dc w/ appropriate f/u Minutes to complete discharge: 38 Discharge Summary Reason For Visit: SOB [facility] P[facility] Current Active Problems Anemia (Acute) HCAP (healthcare-associated pneumonia) (Acute) SOB (shortness of breath) (Acute) Asthma (Chronic) Diabetes (Chronic) S/P CABG x 3 (Chronic) Condition: Stable - Instructions Diet, Activity, Other Instructions: You were hospitalized for shortness of breath following your surgery and were found to have a buildup of fluid in your lungs and a possible pneumonia. You were seen by specialists in cardiology, pulmonology, and infectious disease, had your medical therapy optimized, and were treated with antibiotics which you will complete as an outpatient. You were evaluated for yeast infection and received medication for it. You additionally were evaluated for left breast pain and a lymph node was found associated with it, which may simply be an after -effect of your surgery; this requires follow up with your primary care or [facility] doctor. You were also evaluated for home oxygen requirements and it was found that you do require supplemental oxygen upon discharge. Medical recommendations are below. Referrals have been made on your behalf to your PCP, cardiology, and pulmonology. Please keep appointments with these providers within one week of discharge. If you experience any new or worsening shortness of breath, chest pain, swelling in your legs, fever, chills, or any other concerning signs or symptoms, please return to the Emergency Department. your Left adrenal gland is enlarged - as noted on CT scan. please follow up as out patient with endocrine Dr Eisenberg Medical recommendations Please resume your home meds. your blood pressure was high, we increased your norvasc from 5 to 10mg once a day and your imdur from 30 to 60mg once day please take lasix 40 daily to help remove the fluid from your lungs you will be on 2 liters of oxygen. please do not smoke near the oxygen tank as this can cause an explosion/fire please take robitussin for your cough please take xopenex inhaler for asthma/wheezing/shortness of breath please follow up with oil recovery operator dr eisenberg to adjust your insulin pump please take prednisone taper as prescribed Referrals: Kathy Aj MD [Other] - 1 Week Filippo Saunders MD [Staff Physician] - 1 Week Surendra Eisenberg MD [Staff Physician] - 1 Week iTgre Thomas MD, MD [Staff Physician] - 1 Week Disposition: HOME - Home Medications Comprehensive Discharge Medication List: Ambulatory Orders Albuterol Sulfate Inhaler - [Ventolin HFA Inhaler -] 1 - 2 inh IH DAILY PRN 11/07 Alprazolam [Xanax] 0.5 mg PO HS PRN 09/28/12 Insulin Regular, Human [Humulin R] 8 unit IJ UTDICT 09/28/12 Atorvastatin Ca [Lipitor] 80 mg PO HS 01/05/19 Clopidogrel Bisulfate [Plavix] 75 mg PO DAILY 01/05/19 Escitalopram Oxalate [Lexapro -] 10 mg PO DAILY 01/05/19 Furosemide [Lasix -] 40 mg PO DAILY 01/05/19 Metoprolol Succinate 100 mg PO DAILY 01/05/19 Montelukast Na [Singulair -] 10 mg PO HS 01/05/19 Pantoprazole Sodium 40 mg PO DAILY 01/05/19 Amlodipine Besylate [Norvasc -] 10 mg PO DAILY #30 tablet 01/17/19 Guaifenesin AC [Robitussin AC] 10 ml PO Q6H #120 each MDD 4 01/17/19 Insulin (Levemir) [Levemir Vial] 20 units SQ HS units 01/17/19 Insulin (Levemir) [Levemir Vial] 50 units SQ AM units 01/17/19 Isosorbide Mononitrate [Imdur -] 60 mg PO DAILY #30 tab.sr.24h 01/17/19 Levalbuterol HCl [Xopenex] 0.63 mg IH RTID #25 vial.neb. 01/17/19 predniSONE [Deltasone -] See Taper PO DAILY #12 tablet 01/17/19 This patient is new to me today: Yes Date on this admission: 01/17/19 Emergency Visit: Yes ED Registration Date: 01/05/19 Care time: The patient presented to the Emergency Department on the above date and was hospitalized for further evaluation of their emergent condition. Critical Care patient: No - Discharge Referral Referred to [facility] Med P.C.: No
[2019-01-17 12:26] LABS: ANISOCYTOSIS 0; MACROCYTOSIS 0; PLATELET ESTIMATE NORMAL
== END 2019-01-17 15:38 | disposition home or self-care (01) | DRG 871 ==
LOC: JER 11:03 → JERBED 13:06 → J4W 01-06 01:52 → J8W 01-07 20:32
PROVIDERS: ADMIT Internal Medicine; ATTEND Internal Medicine
DX: A41.9 Sepsis, unspecified organism (principal); J18.9 Pneumonia, unspecified organism; I50.31 Acute diastolic (congestive) heart failure; J96.01 Acute respiratory failure with hypoxia; D62 Acute posthemorrhagic anemia; J98.11 Atelectasis; N17.9 Acute kidney failure, unspecified; Z95.1 Presence of aortocoronary bypass graft; E78.5 Hyperlipidemia, unspecified; Z79.4 Long term (current) use of insulin; Y95 Nosocomial condition; I25.10 Atherosclerotic heart disease of native coronary artery without angina pectoris; I11.0 Hypertensive heart disease with heart failure; D64.9 Anemia, unspecified; J45.909 Unspecified asthma, uncomplicated; N64.4 Mastodynia; B37.3 Candidiasis of vulva and vagina; R59.0 Localized enlarged lymph nodes; I16.0 Hypertensive urgency; G47.33 Obstructive sleep apnea (adult) (pediatric); G89.18 Other acute postprocedural pain; R00.2 Palpitations; E11.65 Type 2 diabetes mellitus with hyperglycemia
CPT/HCPCS: 36415; 36430; 36511; 71045-TC-FY; 71275-TC; 80048; 80053; 80061; 81003; 82550; 82962; 83036; 83721; 83735; 83880; 84100; 84484; 85025; 85027; 85379; 85610; 85651; 86140; 86850; 86900; 86901; 86922; 87040; 87070; 87081; 87205; 87899; 93005; 93010; 93225; 93226; 93306-TC; 93971-TC; 94010; 94640; 94761; 99284-25; J0131; J1644; P9038; P9058

== ENCOUNTER 2020-10-30 04:44 | Day surgery (SDC) | payer OTHER, BC ==
[2020-10-26 16:10] VITALS: BMI 32.8
[2020-10-30 10:07] VITALS: BP 118/67; PULSE 87; TEMP 98.2
== END 2020-10-30 10:10 | disposition home or self-care (01) ==
LOC: JASU-ENDO 04:44
PROVIDERS: ATTEND Internal Medicine Gastroenterology
PROC: 0DBL8ZX Excision of Transverse Colon, Via Natural or Artificial Opening Endoscopic, Diagnostic (ICD-10-PCS; 2020-10-30)
PROC: 0DBL8ZX Excision of Transverse Colon, Via Natural or Artificial Opening Endoscopic, Diagnostic (ICD-10-PCS; 2020-10-30)
PROC: 0DB48ZX Excision of Esophagogastric Junction, Via Natural or Artificial Opening Endoscopic, Diagnostic (ICD-10-PCS; 2020-10-30)
PROC: 0DB78ZX Excision of Stomach, Pylorus, Via Natural or Artificial Opening Endoscopic, Diagnostic (ICD-10-PCS; 2020-10-30)
PROC: 0DBK8ZX Excision of Ascending Colon, Via Natural or Artificial Opening Endoscopic, Diagnostic (ICD-10-PCS; principal; 2020-10-30 08:00)
DX: Z12.11 Encounter for screening for malignant neoplasm of colon (principal); Z86.010 Personal history of colon polyps; K57.30 Diverticulosis of large intestine without perforation or abscess without bleeding; D12.3 Benign neoplasm of transverse colon; K21.9 Gastro-esophageal reflux disease without esophagitis; K22.2 Esophageal obstruction; K44.9 Diaphragmatic hernia without obstruction or gangrene; R13.10 Dysphagia, unspecified
CPT/HCPCS: 88305-TC; 88342-TC

== ENCOUNTER 2023-12-09 04:40 | Day surgery (SDC) | payer OTHER, BC ==
[2023-12-03 10:51] VITALS: BMI 44.2
[2023-12-09 07:39] VITALS: TEMP 97.7
[2023-12-09 10:09] VITALS: BP 157/56; PULSE 58; RESP 18
== END 2023-12-09 09:57 | disposition home or self-care (01) ==
LOC: JASU-ENDO 04:40
PROVIDERS: ATTEND Internal Medicine Gastroenterology
PROC: 0DBL8ZX Excision of Transverse Colon, Via Natural or Artificial Opening Endoscopic, Diagnostic (ICD-10-PCS; 2023-12-09)
PROC: 0DB98ZX Excision of Duodenum, Via Natural or Artificial Opening Endoscopic, Diagnostic (ICD-10-PCS; 2023-12-09)
PROC: 0DB78ZX Excision of Stomach, Pylorus, Via Natural or Artificial Opening Endoscopic, Diagnostic (ICD-10-PCS; 2023-12-09)
PROC: 0DB68ZX Excision of Stomach, Via Natural or Artificial Opening Endoscopic, Diagnostic (ICD-10-PCS; 2023-12-09)
PROC: 0DB28ZX Excision of Middle Esophagus, Via Natural or Artificial Opening Endoscopic, Diagnostic (ICD-10-PCS; 2023-12-09)
PROC: 0DB48ZX Excision of Esophagogastric Junction, Via Natural or Artificial Opening Endoscopic, Diagnostic (ICD-10-PCS; 2023-12-09)
PROC: 0DBK8ZX Excision of Ascending Colon, Via Natural or Artificial Opening Endoscopic, Diagnostic (ICD-10-PCS; principal; 2023-12-09 08:00)
DX: Z12.11 Encounter for screening for malignant neoplasm of colon (principal); D12.2 Benign neoplasm of ascending colon; D12.3 Benign neoplasm of transverse colon; K64.8 Other hemorrhoids; K57.30 Diverticulosis of large intestine without perforation or abscess without bleeding; Z86.010 Personal history of colon polyps; K26.9 Duodenal ulcer, unspecified as acute or chronic, without hemorrhage or perforation; K44.9 Diaphragmatic hernia without obstruction or gangrene; K22.2 Esophageal obstruction; K29.50 Unspecified chronic gastritis without bleeding; K21.00 Gastro-esophageal reflux disease with esophagitis, without bleeding
CPT/HCPCS: 88305-TC; 88342-TC

== ENCOUNTER 2024-04-08 04:57 | Day surgery (SDC) | payer OTHER, BC ==
[2024-04-07 09:46] VITALS: BMI 30.7
[2024-04-08] MEDS ORDERED: LIDOCAINE VISCOUS 2% ORAL/TOP 15 ML UNIT-DOSE CUP ONE (08:42)
[2024-04-08] MEDS ORDERED: ALBUTEROL SO4 HFA INHALER IH ONE (08:45)
[2024-04-08 09:22] VITALS: TEMP 98
[2024-04-08 09:44] VITALS: PULSE 57
[2024-04-08 09:52] VITALS: BP 157/55; RESP 18
== END 2024-04-08 10:23 | disposition home or self-care (01) ==
LOC: JASU-ENDO 04:57
PROVIDERS: ATTEND Internal Medicine Gastroenterology
PROC: 0DJ08ZZ Inspection of Upper Intestinal Tract, Via Natural or Artificial Opening Endoscopic (ICD-10-PCS; principal; 2024-04-08 08:30)
DX: K26.7 Chronic duodenal ulcer without hemorrhage or perforation (principal); K31.84 Gastroparesis
CPT/HCPCS: 82962